=== PATIENT | male | born 1935 | race Caucasian/White ===

== ENCOUNTER 2016-07-18 07:19 | Inpatient (IN) | payer BC ==
[2016-07-18 07:33] VITALS: BMI 47.0
--- NOTE | 2016-07-18 07:47 | PDOC ---
History of Present Illness - General History Source: Patient Exam Limitations: No Limitations - History of Present Illness Initial Comments: CHIEF COMPLAINT: 80 y/o afebrile male with PMH HTN, HLD, CAD with multiple stents c/o abdominal pain with nausea this morning. HISTORY OF PRESENT ILLNESS: The patient states the pain woke him up from sleep. He has not been able to vomit. He describes the pain as sharp, intermittent and mostly located in the RUQ. His son informs me he had a heavy dinner last night but denies hx of gallstones. He denies fever, chills, URI symptoms, CP, SOB, back pain, diarrhea, constipation. He did have a normal BM yesterday. His son informs me that 2 weeks ago he was treated for bronchitis with an abx and then a steroid and his symptoms have improved. PCP is Dr. Rao [employer] [place] [employer] is Dr. Thomson (Last stress test and ECHO was 03/2016) Vital signs on arrival are notable for O2 sat of 80% on RA without a good wave form. REVIEW OF SYSTEMS: GENERAL/CONSTITUTIONAL: No fever/chills. No weakness. No weight change. HEAD, EYES, EARS, NOSE AND THROAT: No change in vision. No ear pain or discharge. No sore throat. CARDIOVASCULAR: No chest pain or shortness of breath. RESPIRATORY: No cough, wheezing, or hemoptysis. GASTROINTESTINAL: +abd pain, nausea. No vomiting, diarrhea, constipation. GENITOURINARY: No dysuria, frequency, or change in urination. MUSCULOSKELETAL: No joint or muscle swelling or pain. No neck or back pain. SKIN: No rash or easy bruising. NEUROLOGIC: No headache, vertigo, loss of consciousness, or loss of sensation. PHYSICAL EXAM: GENERAL: The patient is awake, alert, and fully oriented, in moderate distress. The patient is belching intermittently and appears to be short of breath although he denies. HEAD: Normal with no signs of trauma. ENT: Pupils equal, round and reactive to light, extraocular movements intact, sclera anicteric, conjunctiva clear. Neck supple. LUNGS: Clear to auscultation bilaterally. Normal excursion. No respiratory distress or use of accessory muscles. CV: rapid rate/regular rhythm, S1/S2, no MRG. Cap refill < 2 sec. ABDOMEN: obese, distended abdomen (reportedly normal for patient). TTP in epigastric and RUQ. No rebound, guarding. EXTREMITIES: Normal range of motion, no edema. NEUROLOGICAL: Normal speech, normal gait. CN II-XII grossly intact. PSYCH: Normal mood, normal affect. SKIN: Warm, dry, normal turgor, no rashes or lesions noted. <Yu Key - Last Filed: 07/18/16 12:20> <Doc Espinosa - Last Filed: 08/01/16 09:34> - General Chief Complaint: Pain Stated Complaint: ABD PAIN Time Seen by Provider: 07/18/16 07:39 Past History - Past Medical History Asthma: No Cardiac Disorders: Yes (cardiac stent) CVA: No CHF: Yes Dementia: No Diabetes: No Dialysis: No HTN: Yes Hypercholesterolemia: Yes - Surgical History Cardiac Surgery: Yes (card stent) - Psycho/Social/Smoking Cessation Hx Anxiety: No Suicidal Ideation: No Smoking Status: No Smoking History: Former smoker Have you smoked in the past 12 months: No Number of Cigarettes Smoked Daily: 0 Information on smoking cessation initiated: No Hx Alcohol Use: No Drug/Substance Use Hx: No <Yu Key - Last Filed: 07/18/16 12:20> <Doc Espinosa - Last Filed: 08/01/16 09:34> - Past Medical History Allergies/Adverse Reactions: Allergies Allergy/AdvReac Type Severity Reaction Status Date / Time No Known Allergies Allergy Verified 07/18/16 07:27 Home Medications: Ambulatory Orders Allopurinol [Zyloprim -] 100 mg PO DAILY 07/18/16 Multivit-Min/FA/Lycopen/Lutein [Centrum Silver Tablet] 1 each PO DAILY 07/18/16 Nitroglycerin [Nitrostat] 0.4 mg SL PRN 07/18/16 Simvastatin [Zocor -] 40 mg PO HS 07/18/16 Carvedilol [Coreg -] 3.125 mg PO BID #60 tablet 07/30/16 Losartan Potassium [Cozaar -] 25 mg PO DAILY #30 tablet 07/30/16 Pantoprazole Sodium [Protonix -] 40 mg PO DAILY #30 tablet.ec 07/30/16 *Physical Exam - Vital Signs Last Vital Signs Temp Pulse Resp BP Pulse Ox 97.5 F L 90 18 105/67 07/18/16 07:28 07/18/16 07:28 07/18/16 07:28 07/18/16 07:28 <Yu Key - Last Filed: 07/18/16 12:20> - Vital Signs Last Vital Signs Temp Pulse Resp BP Pulse Ox 97.5 F L 104 H 26 H 105/67 97 07/18/16 07:28 07/18/16 07:47 07/18/16 07:47 07/18/16 07:28 07/18/16 07:47 <Doc Espinosa - Last Filed: 08/01/16 09:34> Heart Score/ECG Review - ECG Impressions Comment:: 07/18/16 11:30 Twelve-lead EKG was performed and reviewed by me. There is normal sinus rhythm with a rate of 110 Right bundle-branch block T wave inversions in V1 through V4 Right bundle-branch block and T-wave inversions are new when compared with EKG dated 12/25/2011 <Doc Espinosa - Last Filed: 08/01/16 09:34> ED Treatment Course - LABORATORY CBC & Chemistry Diagram: 07/18/16 08:25 07/18/16 08:25 <Yu Key - Last Filed: 07/18/16 12:20> - LABORATORY CBC & Chemistry Diagram: 07/31/16 07:00 07/31/16 07:00 - ADDITIONAL ORDERS Additional order review: Laboratory Results 07/18/16 07/18/16 07/18/16 08:25 08:25 08:25 Sodium 134 L Potassium 5.0 Chloride 99 Carbon Dioxide 25 Anion Gap 10 BUN 73 H D Creatinine 2.7 H D Creat Clearance w eGFR 22.85 Random Glucose 207 H D Lactic Acid 1.824 Calcium 9.3 Total Bilirubin 0.6 D AST 21 D ALT 35 D Alkaline Phosphatase 55 Creatine Kinase 403 H D Creatine Kinase Index 2.0 CK-MB (CK-2) 8.001 H CK-MB (CK-2) Rel Index Cancelled Troponin I < 0.02 B-Natriuretic Peptide 201.01 Total Protein 7.2 Albumin 3.8 07/18/16 08:25 RBC 5.04 D MCV 95.5 MCHC 32.6 RDW 14.0 MPV 8.1 Neutrophils % 83.1 H D Lymphocytes % 13.0 D Monocytes % 2.0 L Eosinophils % 1.5 Basophils % 0.4 - Medications Given in the ED: ED Medications Discontinued Medications Generic Name Dose Route Start Last Admin Trade Name Ck PRN Reason Stop Dose Admin Famotidine/Sodium Chloride 50 mls @ 100 mls/hr 07/18/16 07:48 07/18/16 08:40 Pepcid 20 Mg Premixed Ivpb - IVPB 07/18/16 08:17 100 mls/hr ONCE ONE Administration Sodium Chloride 500 mls @ 500 mls/hr 07/18/16 08:39 07/18/16 08:40 Normal Saline - IV 07/18/16 09:38 500 mls/hr ASDIR STA Administration Sodium Chloride 500 mls @ 500 mls/hr 07/18/16 09:34 07/18/16 09:35 Normal Saline - IV 07/18/16 10:33 500 mls/hr ASDIR STA Administration Ketorolac Tromethamine 15 mg 07/18/16 08:39 07/18/16 08:40 Toradol Injection - IVPUSH 07/18/16 08:40 15 mg ONCE ONE Administration Ondansetron HCl 4 mg 07/18/16 07:48 07/18/16 08:40 Zofran Injection IVPUSH 07/18/16 07:49 4 mg ONCE ONE Administration <Doc Espinosa - Last Filed: 08/01/16 09:34> Medical Decision Making - Medical Decision Making A/P: 80 y/o male with multiple co-morbidities c/o abdominal pain and nausea that woke him up from sleep this morning. Concerned for FL, PNA, cholecystitis. Plan is as follows: 1. EKG 2. CXR 3. Labs 4. Gallbladder ultrasound 5. IV zofran, pepcid BP low. Ordered 500mg IV fluid bolus. Ordered 15mg IV toradol for pain - avoiding narcotics because of low BP. Mildly elevated WBC count with left shift. Elevated CK and CK-MB. Troponin normal. Kidney failure - unsure if chronic. BP remains low. Ordered 2nd 500mg IV fluid bolus. CXR IMPRESSION: Mild cardiomegaly. Mild atelectatic changes in left base with questionable minimal left pleural effusion. CT scan abd/pelvis IMPRESSION: Pneumoperitoneum suspicious for bowel perforation, possibly gastric in etiology. Ascites. Cholelithiasis. Ordered IV levaquin and flagyl Cultures, PT/INR, type and screen ordered BP improved but still low; ordered IV fentanyl for pain as Toradol did little to relieve pain. Gave the patient and his family the diagnosis and plan for surgery/admission. The patient admits to taking a lot of Advil - he states he goes through a [employer] size bottle every few months, but he denies previous history of ulcers. Paged Dr. Glover and Hospitalist for admission and surgery. Spoke with Dr. Shrestha and he accepts surgical candidate. Ordered 1L IV fluids wide open Pt has 2 lines Ordered Denise catheter. <Yu Key - Last Filed: 07/18/16 12:20> - Medical Decision Making 07/18/16 11:08 80y M hx of CAD presents with sudden onset of RUQ pain this morning, associated w/ nausea w/o any fever/chills, cp, sob. on exam pt iwth large abdomen that was initially tender in the RUQ, but gracually worsened. Pts BP is borderline, and was initially tachycardic but improved with 1L of NS. Pts CT shows free air, pt does endorse using advil very frequently for arthritic pain ?perforated peptic ulcer? pt was given abx, placed NPO. surgery was paged. will admit to hospitalist. The patient was seen and evaluated in conjunction with GUTIERREZ Key under my direct supervision, ancillary studies were reviewed. I independently interviewed and evaluated the patient and I agree with the plan as outlined by GUTIERREZ Key . <Doc Espinosa - Last Filed: 08/01/16 09:34> *DC/Admit/Observation/Transfer - Discharge Dispostion Admit: Yes <Yu Key - Last Filed: 07/18/16 12:20> <Doc Espinosa - Last Filed: 08/01/16 09:34> Diagnosis at time of Disposition: Pneumoperitoneum, Bowel perforation - Discharge Dispostion Condition at time of disposition: Improved - Prescriptions - Referrals
[2016-07-18] MEDS ORDERED: FAMOTIDINE 20 MG/50 ML IVPB 50 ML IVPB ONE ×2 (07:48→08:42)
[2016-07-18] MEDS ORDERED: ONDANSETRON 4 MG/2 ML VIAL IVPUSH ONE (07:48)
[2016-07-18 08:37] LABS: BASOPHIL 0.4 % (0-2.0); EOSINOPHIL 1.5 % (0-4.5); MCH 31.1 pg (25.7-33.7); MCHC 32.6 g/dl (32.0-35.9); MEAN CELL VOLUME 95.5 fl (80-96); MEAN PLT VOLUME 8.1 fl (7.5-11.1); NEUTROPHILS 83.1 % (42.8-82.8); PLATELET COUNT 304 K/MM3 (134-434); WHITE BLOOD COUNT 10.1 K/mm3 (4.0-10.0)
[2016-07-18] MEDS ORDERED: KETOROLAC TROMETHAMINE 15 MG/ML VIAL IVPUSH ONE (08:39)
[2016-07-18] MEDS ORDERED: SODIUM CHLORIDE 500 ML IV STA ×2 (08:39→09:34)
[2016-07-18] MEDS ORDERED: ONDANSETRON 4 MG/2 ML VIAL ONE (08:42)
[2016-07-18] MEDS ORDERED: KETOROLAC TROMETHAMINE 15 MG/ML VIAL ONE (08:42)
[2016-07-18 08:57] LABS: ALBUMIN 3.8 g/dl (3.4-5.0); ANION GAP 10 (8-16); BILIRUBIN,TOTAL 0.6 mg/dL (0.2-1.0); CALCIUM 9.3 mg/dL (8.5-10.1); CO2 25 mmol/L (21-32); CREATININE 2.7 mg/dL (0.7-1.3); GLUCOSE,RANDOM 207 mg/dL (74-106); SGOT/AST 21 U/L (15-37); SGPT/ALT 35 U/L (12-78); TOT PROT 7.2 g/dl (6.4-8.2)
[2016-07-18 09:00] LABS: ALK PHOS 55 U/L (45-117); TROPONIN I < 0.02 ng/ml (0.00-0.05)
--- NOTE | 2016-07-18 10:29 | EKG ---
Test Reason : Blood Pressure : / mmHG Vent. Rate : 110 BPM Atrial Rate : 110 BPM P-R Int : 170 ms QRS Dur : 142 ms QT Int : 380 ms P-R-T Axes : 048 087 -01 degrees QTc Int : 514 ms SINUS TACHYCARDIA WITH OCCASIONAL PREMATURE VENTRICULAR COMPLEXES RIGHT BUNDLE BRANCH BLOCK POSSIBLE INFERIOR INFARCT , AGE UNDETERMINED T WAVE ABNORMALITY, CONSIDER LATERAL ISCHEMIA ABNORMAL ECG WHEN COMPARED WITH ECG OF 25-DEC-2011 11:39, SIGNIFICANT CHANGES HAVE OCCURRED Confirmed by TWAN HYDE MD ([id number]) on 07/18/2016 10:29:14 AM Referred By: Confirmed By:TWAN HYDE MD
[2016-07-18] MEDS ORDERED: LEVOFLOXACIN 750 MG IVPB 150 ML IVPB ONE ×2 (10:43→10:50)
[2016-07-18] MEDS ORDERED: METRONIDAZOLE 500 MG PREMIXED 100 ML IVPB ONE ×2 (10:43→10:50)
[2016-07-18 11:25] LABS: INR 1.06 (0.82-1.09); PROTHROMBIN TIME (PATIENT) 11.7 SEC (9.98-11.88)
[2016-07-18] MEDS ORDERED: SUCCINYLCHOLINE CHLORIDE 200 MG/10 ML VIAL ONE (12:49)
[2016-07-18] MEDS ORDERED: PROPOFOL 20 ML ONE (12:50)
[2016-07-18] MEDS ORDERED: ROCURONIUM BROMIDE 50 MG/5 ML VIAL ONE (12:52)
--- NOTE | 2016-07-18 13:06 | CONSULT ---
Consult Consult Specialty:: Surgery Reason for Consultation:: pneumoperitoneum - History of Present Illness Chief Complaint: Abdominal pain History of Present Illness: The patient states the pain woke him up from sleep. He has not been able to vomit. He describes the pain as sharp, intermittent and mostly located in the RUQ. His son informs me he had a heavy dinner last night but denies hx of gallstones. He denies fever, chills, URI symptoms, CP, SOB, back pain, diarrhea , constipation. He did have a normal BM yesterday. His son informs me that 2 weeks ago he was treated for bronchitis with an abx and then a steroid and his symptoms have improved. - History Source History Provided By: Patient, Family Member Limitations to Obtaining History: No Limitations - Past Medical History Cardio/Vascular: Yes: CAD Musculoskeletal: Yes: Osteoarthritis Additional Medical History: Morbid obesity - Past Surgical History Additional Surgical History: PCI - Alcohol/Substance Use Hx Alcohol Use: No - Smoking History Smoking history: Former smoker Have you smoked in the past 12 months: No Aproximately how many cigarettes per day: 0 Home Medications - Allergies Allergies/Adverse Reactions: Allergies Allergy/AdvReac Type Severity Reaction Status Date / Time No Known Allergies Allergy Verified 07/18/16 07:27 - Home Medications Home Medications: Ambulatory Orders Allopurinol [Zyloprim -] 100 mg PO DAILY 07/18/16 Aspirin [Drew Chewable] 81 mg PO DAILY 07/18/16 Carvedilol 25 mg PO DAILY 07/18/16 Losartan Potassium [Cozaar -] 50 mg PO DAILY 07/18/16 Multivit-Min/FA/Lycopen/Lutein [Centrum Silver Tablet] 1 each PO DAILY 07/18/16 Nitroglycerin [Nitrostat] 0.4 mg SL PRN 07/18/16 Simvastatin [Zocor -] 40 mg PO HS 07/18/16 Spironolactone [Aldactone] 50 mg PO DAILY 07/18/16 Torsemide [Demadex] 20 mg PO DAILY 07/18/16 Review of Systems - Review of Systems Gastrointestinal: reports: Abdominal Pain, Bloating Pain Intensity: 9 Physical Exam Vital Signs: Vital Signs Temperature 97.5 F L 07/18/16 07:28 Pulse Rate 90 07/18/16 12:25 Respiratory Rate 28 H 07/18/16 12:25 Blood Pressure 95/75 07/18/16 12:25 O2 Sat by Pulse Oximetry (%) 97 07/18/16 12:25 Constitutional: Yes: Anxious, Mild Distress Eyes: Yes: Conjunctiva Clear HENT: Yes: Normocephalic Neck: Yes: Supple Cardiovascular: Yes: Regular Rate and Rhythm Respiratory: Yes: CTA Bilaterally Gastrointestinal: Yes: Abdomen, Obese, Tenderness (diffuse) ...Rectal Exam: Yes: Deferred Neurological: Yes: Alert, Oriented Labs: Laboratory Last Values WBC 10.1 K/mm3 (4.0-10.0) H 07/18/16 08:25 RBC 5.04 M/mm3 (4.00-5.60) D 07/18/16 08:25 Hgb 15.7 GM/dL (11.7-16.9) D 07/18/16 08:25 Hct 48.2 % (35.4-49) D 07/18/16 08:25 MCV 95.5 fl (80-96) 07/18/16 08:25 MCHC 32.6 g/dl (32.0-35.9) 07/18/16 08:25 RDW 14.0 % (11.9-15.9) 07/18/16 08:25 Plt Count 304 K/MM3 (134-434) D 07/18/16 08:25 MPV 8.1 fl (7.5-11.1) 07/18/16 08:25 Neutrophils % 83.1 % (42.8-82.8) H D 07/18/16 08:25 Lymphocytes % 13.0 % (8-40) D 07/18/16 08:25 Monocytes % 2.0 % (3.8-10.2) L 07/18/16 08:25 Eosinophils % 1.5 % (0-4.5) 07/18/16 08:25 Basophils % 0.4 % (0-2.0) 07/18/16 08:25 INR 1.06 (0.82-1.09) 07/18/16 11:00 Sodium 134 mmol/L (136-145) L 07/18/16 08:25 Potassium 5.0 mmol/L (3.5-5.1) 07/18/16 08:25 Chloride 99 mmol/L (98-107) 07/18/16 08:25 Carbon Dioxide 25 mmol/L (21-32) 07/18/16 08:25 Anion Gap 10 (8-16) 07/18/16 08:25 BUN 73 mg/dL (7-18) H D 07/18/16 08:25 Creatinine 2.7 mg/dL (0.7-1.3) H D 07/18/16 08:25 Creat Clearance w eGFR 22.85 (>60) 07/18/16 08:25 Random Glucose 207 mg/dL (74-106) H D 07/18/16 08:25 Lactic Acid 1.824 mmol/L (0.4-2.0) 07/18/16 08:25 Calcium 9.3 mg/dL (8.5-10.1) 07/18/16 08:25 Total Bilirubin 0.6 mg/dL (0.2-1.0) D 07/18/16 08:25 AST 21 U/L (15-37) D 07/18/16 08:25 ALT 35 U/L (12-78) D 07/18/16 08:25 Alkaline Phosphatase 55 U/L (45-117) 07/18/16 08:25 Creatine Kinase 403 IU/L (39-308) H D 07/18/16 08:25 Creatine Kinase Index 2.0 % (0.0-5.0) 07/18/16 08:25 CK-MB (CK-2) 8.001 ng/ml (0.5-3.6) H 07/18/16 08:25 CK-MB (CK-2) Rel Index Cancelled 07/18/16 08:25 Troponin I < 0.02 ng/ml (0.00-0.05) 07/18/16 08:25 B-Natriuretic Peptide 201.01 pg/ml (5-450) 07/18/16 08:25 Total Protein 7.2 g/dl (6.4-8.2) 07/18/16 08:25 Albumin 3.8 g/dl (3.4-5.0) 07/18/16 08:25 Blood Type A POSITIVE 07/18/16 11:00 Antibody Screen Negative 07/18/16 11:00 Imaging - Results Cat Scan: Report Reviewed, Image Reviewed (pneumoperitoneum, free fluid) Problem List - Problems (1) Perforated peptic ulcer Code(s): K27.5 - CHRONIC OR UNSP PEPTIC ULCER, SITE UNSP, WITH PERFORATION Assessment/Plan Perforated hollow viscus, possible perforated PUD npo, IVF resuscitation, wu For emergency laparotomy Risks, benefits, and alternatives to the procedure discussed with patient and family members
--- NOTE | 2016-07-18 13:07 | HP ---
CHIEF COMPLAINT: Nausea PCP: Dr. Rao HISTORY OF PRESENT ILLNESS: 80 yo obese male with a PMHx HTN, HLD, CAD and multiple stent placement, complaining of nausea and abdominal pain that woke him up from sleep this morning. Patient brought in by his to sons. Pain is described as sharp, intermittent, RUQ pain. Patient denies vomiting, fever, chills, diarrhea, changes in bowel or bladder habits. Sons states that he takes Advil throughout the day (total amount unknown) for bilateral knee pain. Patient was recently treated for acute bronchitis on, finished course of antibiotics and steroids. On arrival patient was hypotensive and hypoxic at O2 of 80% on room air. ER course was notable for: (1)EKG: NSR R 110 with RBBB and T wave inversions in v1-v4 ; this is new when compared to 12/2011 (2)Limited US: +gallstone, no acute cholecystitis; + hepatomegaly consistent with fatty infiltration (3)CT abdomen: Lung bases demonstrate trace amount of pleural fluid, mild basilar atelectasis, free air identified in abdomen Recent Travel:no PAST MEDICAL HISTORY: PAST SURGICAL HISTORY: Social History: Smoking:no Alcohol:no Drugs: no Family History:n/a Allergies No Known Allergies Allergy (Verified 07/18/16 07:27) HOME MEDICATIONS: Home Medications Medication Instructions Recorded Allopurinol [Zyloprim -] 100 mg PO DAILY 07/18/16 Aspirin [Drew Chewable] 81 mg PO DAILY 07/18/16 Carvedilol 25 mg PO DAILY 07/18/16 Losartan Potassium [Cozaar -] 50 mg PO DAILY 07/18/16 Multivit-Min/FA/Lycopen/Lutein 1 each PO DAILY 07/18/16 [Centrum Silver Tablet] Nitroglycerin [Nitrostat] 0.4 mg SL PRN 07/18/16 Simvastatin [Zocor -] 40 mg PO HS 07/18/16 Spironolactone [Aldactone] 50 mg PO DAILY 07/18/16 Torsemide [Demadex] 20 mg PO DAILY 07/18/16 REVIEW OF SYSTEMS CONSTITUTIONAL: Absent: fever, chills, diaphoresis, generalized weakness, malaise, loss of appetite, weight change HEENT: Absent: rhinorrhea, nasal congestion, throat pain, throat swelling, difficulty swallowing, mouth swelling, ear pain, eye pain, visual changes CARDIOVASCULAR: Absent: chest pain, syncope, palpitations, irregular heart rate, lightheadedness , peripheral edema RESPIRATORY: Absent: cough, shortness of breath, dyspnea with exertion, orthopnea, wheezing, stridor, hemoptysis GASTROINTESTINAL: Positive: abdominal pain, abdominal distension, nausea Absent: vomiting, diarrhea, constipation, melena, hematochezia GENITOURINARY: Absent: dysuria, frequency, urgency, hesitancy, hematuria, flank pain, genital pain MUSCULOSKELETAL: Absent: myalgia, arthralgia, joint swelling, back pain, neck pain SKIN: Absent: rash, itching, pallor HEMATOLOGIC/IMMUNOLOGIC: Absent: easy bleeding, easy bruising, lymphadenopathy, frequent infections ENDOCRINE: Absent: unexplained weight gain, unexplained weight loss, heat intolerance, cold intolerance NEUROLOGIC: Absent: headache, focal weakness or paresthesias, dizziness, unsteady gait, seizure, mental status changes, bladder or bowel incontinence PSYCHIATRIC: Absent: anxiety, depression, suicidal or homicidal ideation, hallucinations. PHYSICAL EXAMINATION GENERAL: mordibly obese ,Awake, alert, and fully oriented, in no acute distress. HEAD: Normal with no signs of trauma. EYES: Pupils equal, round and reactive to light, extraocular movements intact, sclera anicteric, conjunctiva clear. No lid lag. EARS, NOSE, THROAT: Ears normal, nares patent, oropharynx clear without exudates. Moist mucous membranes. NECK: Normal range of motion, supple without lymphadenopathy, JVD, or masses. LUNGS: Breath sounds equal, clear to auscultation bilaterally. No wheezes, and no crackles. No accessory muscle use. HEART: tachycardic regular rhythm, normal S1 and S2 without murmur, rub or gallop. ABDOMEN: tender, distended, normoactive bowel sounds, no guarding, no rebound, no masses. No hepatomegaly or splenomegaly. MUSCULOSKELETAL: Normal range of motion at all joints. No bony deformities or tenderness. No CVA tenderness. UPPER EXTREMITIES: 2+ pulses, warm, well-perfused. No cyanosis. No clubbing. Cap refill <2 seconds. No peripheral edema. LOWER EXTREMITIES: 2+ pulses, warm, well-perfused. No calf tenderness. No peripheral edema. NEUROLOGICAL: Cranial nerves II-XII intact. Normal speech. Normal gait. PSYCHIATRIC: Cooperative. Good eye contact. Appropriate mood and affect. SKIN: Warm, dry, normal turgor, no rashes or lesions noted. ASSESSMENT/PLAN: 80 yo male with a PMH HTN , HLD, CAD s/p stents (unknown), presents to ER with nausea and abdominal pain. Work up on CT reveals free air in abdomen. Patient has been immediately sent to the OR for exploratory laparotomy with Dr. Shrestha. 1. Pneumoperitoneum secondary to perforated PUD -Taken to OR for exploratory laparotomy -Currently in ICU; intubated and sedated; -AC vent mode -protonix 40mg IVPB qd -morphine 2mg IVP q4hr prn for pain control - 2. Sepsis secondary to perforated PUD -blood culture and body fluid culture pending -ID consulted for antibiotics; he received one dose on unasyn in OR 3. HTN: -carvedilol 25mg po daily -losartan potassium 50mg po daily -spironolactone 50mg po daily -torsemide 20mg po daily -hold all home medications for now 4. HLD: -simvastatin 40mg po hs: hold 5. Gout: -allopurinol 100mg po daily -hold due to kidney functioning 6. Acute on chromic kidey injury: -Cr 2.7 today -Gentle hydration -atrophic left kidney seen on imaging FEN: Fluids: NS 100mls/hr Electrolytes: trend cmp Diet: NPO VTE prophylaxis: scds b/l Problem List - Problem (1) Bowel perforation Code(s): K63.1 - PERFORATION OF INTESTINE (NONTRAUMATIC) (2) Pneumoperitoneum Code(s): K66.8 - OTHER SPECIFIED DISORDERS OF PERITONEUM (3) Sepsis associated hypotension Code(s): A41.9 - SEPSIS, UNSPECIFIED ORGANISM Visit type - Emergency Visit Emergency Visit: Yes ED Registration Date: 07/18/16 Care time: The patient presented to the Emergency Department on the above date and was hospitalized for further evaluation of their emergent condition. - New Patient This patient is new to me today: Yes Date on this admission: 07/18/16 - Critical Care Critical Care patient: Yes Total Critical Care Time (in minutes): 40 Critical Care Statement: The care of this patient involved high complexity decision making to prevent further life threatening deterioration of the patient 's condition and/or to evalute & treat vital organ system(s) failure or risk of failure.
[2016-07-18] MEDS ORDERED: AMPICILLIN NA/SULBACTAM NA 1.5 GM VIAL IVPB ONE (13:33)
[2016-07-18] MEDS ORDERED: morphine CARPU-JECT 2 MG/1 ML DISP.SYRIN IVPUSH PRN ×2 (13:43→16:08)
[2016-07-18] MEDS ORDERED: SODIUM CHLORIDE 1,000 ML IV SCH (13:45)
[2016-07-18] MEDS ORDERED: PANTOPRAZOLE SODIUM 100 ML IVPB SCH (14:00)
[2016-07-18] MEDS ORDERED: MIDAZOLAM HCL 2 MG/2 ML SINGLE DOSE VIAL ONE (14:03)
--- NOTE | 2016-07-18 15:07 | OP ---
Operative Note - Note: Operative Date: 07/18/16 Pre-Operative Diagnosis: Perforated hollow viscus Operation: Exploratory laparotomy, Orion patch repair of perforated PUD Findings: perforated pre-pyloric ulcer with 1 liter of free fluid Post-Operative Diagnosis: Other (Perforated PUD with peritonitis) Surgeon: Lior Shrestha Assistant Professor Of Communication: Nahomy Ontiveros Anesthesia: General Specimens Removed: none Estimated Blood Loss (mls): 20 Operative Report Dictated: Yes
--- NOTE | 2016-07-18 15:11 | SURG ---
Surgery Agri Business Agent Note Agri Business Agent: Nahomy Ontiveros PA-C Date of Service: 07/18/16 Diagnosis: Perforated hollow viscus Procedure: Exploratory laparotomy, Orion patch repair of perforated PUD I was present for the entirety of the operative procedure. For further detail, please refer to operative report. Visit type - Case Type Case Type: ED Admission - New patient This patient is new to me today: Yes Date on this admission: 07/18/16
[2016-07-18] MEDS ORDERED: PROPOFOL 1000 MG/100 ML VIAL IVPB ONE (15:15)
--- NOTE | 2016-07-18 15:50 | CONSULT ---
Consult Consult Specialty:: PULM/CCM Referred by:: [facility] Reason for Consultation:: Post operative management - History of Present Illness Chief Complaint: abdominal pain History of Present Illness: 80 M, HTN, HLD, CAD, and multiple stent placement. Admitted via the ER due to nausea and RUQ abdominal pain. Apparently he takes a lot of Advil/NSAIDS. On imaging found to have a pneumoperitoneum. Take to the OR and found to have a perforated hollow viscus. Now S/P Exploratory laparotomy, Orion patch and repair of perforated PUD He remains intubated and sedated. - History Source History Provided By: Medical Record Limitations to Obtaining History: Intubated - Alcohol/Substance Use Hx Alcohol Use: No - Smoking History Smoking history: Former smoker Have you smoked in the past 12 months: No Aproximately how many cigarettes per day: 0 Home Medications - Allergies Allergies/Adverse Reactions: Allergies Allergy/AdvReac Type Severity Reaction Status Date / Time No Known Allergies Allergy Verified 07/18/16 07:27 - Home Medications Home Medications: Ambulatory Orders Allopurinol [Zyloprim -] 100 mg PO DAILY 07/18/16 Aspirin [Drew Chewable] 81 mg PO DAILY 07/18/16 Carvedilol 25 mg PO DAILY 07/18/16 Losartan Potassium [Cozaar -] 50 mg PO DAILY 07/18/16 Multivit-Min/FA/Lycopen/Lutein [Centrum Silver Tablet] 1 each PO DAILY 07/18/16 Nitroglycerin [Nitrostat] 0.4 mg SL PRN 07/18/16 Simvastatin [Zocor -] 40 mg PO HS 07/18/16 Spironolactone [Aldactone] 50 mg PO DAILY 07/18/16 Torsemide [Demadex] 20 mg PO DAILY 07/18/16 Review of Systems Unable to obtain ROS, reason: intubated Physical Exam Vital Signs: Vital Signs Temperature 97.5 F L 07/18/16 07:28 Pulse Rate 90 07/18/16 12:25 Respiratory Rate 28 H 07/18/16 12:25 Blood Pressure 95/75 07/18/16 12:25 O2 Sat by Pulse Oximetry (%) 97 07/18/16 12:25 Constitutional: Yes: Obese, Other (intubated) Eyes: Yes: Conjunctiva Clear, EOM Intact HENT: Yes: Atraumatic, Normocephalic Neck: Yes: Supple, Trachea Midline Cardiovascular: Yes: Tachycardia Respiratory: Yes: Mechanically Ventilated, Rhonchi Gastrointestinal: Yes: Abdomen, Obese, Other (post operative) ...Rectal Exam: Yes: Deferred Renal/: Yes: Denise Present Musculoskeletal: Yes: WNL Extremities: Yes: WNL Edema: No Peripheral Pulses WNL: Yes Integumentary: Yes: Incision Wound/Incision: Yes: Well Approximated Neurological: Yes: Other (sedated) Imaging - Results Cat Scan: Report Reviewed, Image Reviewed Problem List - Problems (1) Bowel perforation Code(s): K63.1 - PERFORATION OF INTESTINE (NONTRAUMATIC) (2) Pneumoperitoneum Code(s): K66.8 - OTHER SPECIFIED DISORDERS OF PERITONEUM Assessment/Plan CVP to be inserted IVF ABX Per ID Strict I & O VTE prophylaxis AC mode of vent Check ABG Dr Daniels CCTime 35"
[2016-07-18] MEDS ORDERED: NOREPINEPHRINE BITARTRATE 4 MG/4 ML ML IV ONE ×2 (16:19→20:23)
--- NOTE | 2016-07-18 16:35 | PROC ---
Central Line Insertion Indication: Poor Venous Access, Sepsis, Vasopressor Risks and Benefits Explained: No (emergent) Consent on Chart: No Central Line: Triple Lumen Catheter Anesthesia: 1% Lidocaine Sterile Technique: Yes Ultrasound Guided Assistance: Yes Position: Right Internal Jugular Post Insertion: Yes: Bilateral Breath Sounds, Bilateral Chest Expansion Sterile Dressing Applied: Yes
[2016-07-18 17:13] LABS: ARTERIAL BLD GAS O2 SATURATION 98.9 % (90-98.9); ARTERIAL BLOOD GAS BASE EXCESS -9.9 meq/l (-2-2); ARTERIAL BLOOD GAS HCO3 18.2 meq/L (22-26)
[2016-07-18 17:14] LABS: ALLENS TEST POSITIVE; ART PUNCT SITE RIGHT RADIAL; LPM/O2% 100; MECH. VENT. YES; PT. ON O2? YES; TYPE OF O2 VENT; VENT RATE 12; VT/PRESS 450
[2016-07-18 17:15] LABS: ARTERIAL BLOOD GAS pH 7.18 (7.35-7.45)
[2016-07-18] MEDS ORDERED: NOREPINEPHRINE BITARTRATE 4,000 MCG in DEXTROSE 5%-WATER - 496 ML IV SCH (17:30)
[2016-07-18 17:49] LABS: MCH 31.3 pg (25.7-33.7); MCHC 32.7 g/dl (32.0-35.9); MEAN CELL VOLUME 95.7 fl (80-96); MEAN PLT VOLUME 8.7 fl (7.5-11.1); PLATELET COUNT 228 K/MM3 (134-434); RDW 13.7 % (11.9-15.9); WHITE BLOOD COUNT 9.9 K/mm3 (4.0-10.0)
[2016-07-18] MEDS ORDERED: SODIUM CHLORIDE 1,000 ML IV STA (17:54)
[2016-07-18] MEDS ORDERED: PROPOFOL 100 ML ONE (18:02)
[2016-07-18 18:17] LABS: CALCIUM 7.1 mg/dL (8.5-10.1); CREATININE 2.8 mg/dL (0.7-1.3)
[2016-07-18 18:19] LABS: TROPONIN I 0.03 ng/ml (0.00-0.05)
[2016-07-18] MEDS: SODIUM CHLORIDE 1,000 ML IV SCH (18:28)
--- NOTE | 2016-07-18 18:38 | PN ---
Teaching Attending Note Name of Resident: Gita Maldonado ATTENDING PHYSICIAN STATEMENT I saw and evaluated the patient. I reviewed the resident's note and discussed the case with the resident. I agree with the resident's findings and plan as documented. SUBJECTIVE: This is an 80-year-old man with a history of CAD, stents, HTN, hyperlipidemia, stage 3 CKD, gout who presents to the ER with abdominal pain. He says he was awakened from sleep by sharp pain across his upper abdomen. He had nausea but no vomiting. He had a normal BM yesterday. He denies fever, chills, melena, rectal bleeding. He takes Advil frequently for knee pain. He was treated with steroids and an antibiotic for acute bronchitis 2 weeks ago. OBJECTIVE: Vital Signs Period Temp Pulse Resp BP Sys/Navarrete Pulse Ox Last 24 Hr 97.5 F-99.1 F 52-104 10-28 64-138/40-77 85-100 HEART: S1 S2, RRR LUNGS: Clear ABDOMEN: Obese, soft, distended, diffusely tender, hypoactive BS EXTREMITIES: No edema ASSESSMENT AND PLAN: This is an 80-year-old man with a history of CAD, stents, HTN, hyperlipidemia, who is taking Advil and recently took oral steroids, who came to the ER because of abdominal pain. He was found to have pneumoperitoneum on CT. 1. Perforated bowel, likely perforated gastric ulcer - Admit to ICU - NPO - IV fluid - IV Protonix - Surgery consult 2. Acute kidney injury on stage 3 CKD vs progression of chronic kidney disease - Last creatinine 1.8 (2011) - IV fluid - Monitor creatinine 3. CAD 4. Hypertension 5. Hyperlipidemia 6. History of gout
[2016-07-18 19:30] LABS: ARTERIAL BLD GAS O2 SATURATION 99.2 % (90-98.9); ARTERIAL BLOOD GAS BASE EXCESS -9.3 meq/l (-2-2); ARTERIAL BLOOD GAS HCO3 17.9 meq/L (22-26)
[2016-07-18 19:34] LABS: ALLENS TEST POSITIVE; ART PUNCT SITE LEFT RADIAL; ARTERIAL BLOOD GAS pH 7.22 (7.35-7.45); LPM/O2% 100; MECH. VENT. YES; PT. ON O2? YES; TYPE OF O2 VENT; VENT RATE 12; VT/PRESS 450
[2016-07-18] MEDS: MUPIROCIN 2% TOPICAL OINTMENT FOR DECOLONIZATION NS SCH (21:30)
[2016-07-18] MEDS: CHLORHEXIDINE GLUCONATE 4% CLEANSER FOR DECOLONIZATION TP SCH (21:30)
[2016-07-18] MEDS: PROPOFOL 100 ML IVPB SCH (21:31)
[2016-07-18] MEDS ORDERED: CHLORHEXIDINE GLUCONATE 4% CLEANSER FOR DECOLONIZATION TP SCH (22:00)
[2016-07-18] MEDS ORDERED: MUPIROCIN 2% TOPICAL OINTMENT FOR DECOLONIZATION NS SCH (22:00)
[2016-07-18] MEDS: NOREPINEPHRINE BITARTRATE 8,000 MCG in DEXTROSE 5%-WATER - 492 ML IV SCH (22:53)
[2016-07-19] MEDS ORDERED: NOREPINEPHRINE BITARTRATE 4 MG/4 ML ML IV ONE ×3 (00:58→20:02)
[2016-07-19] MEDS: SODIUM CHLORIDE 1,000 ML IV SCH ×2 (06:34→17:01)
[2016-07-19 06:35] LABS: BASOPHIL 0.6 % (0-2.0); EOSINOPHIL 0.6 % (0-4.5); MCHC 32.5 g/dl (32.0-35.9); MEAN CELL VOLUME 95.6 fl (80-96); MEAN PLT VOLUME 8.7 fl (7.5-11.1); NEUTROPHILS 88.4 % (42.8-82.8); PLATELET COUNT 251 K/MM3 (134-434); RDW 14.2 % (11.9-15.9); WHITE BLOOD COUNT 17.3 K/mm3 (4.0-10.0)
--- NOTE | 2016-07-19 07:00 | OP ---
DATE OF OPERATION: 07/18/2016 PROCEDURE: Exploratory laparotomy, Orion patch repair, and peritoneal washout. PREOPERATIVE DIAGNOSIS: Perforated hallow viscus. POSTOPERATIVE DIAGNOSIS: Perforated prepyloric ulcer, peptic ulcer with peritonitis. SURGEON: Lior Shrestha MD QUARTER INSPECTOR: GUTIERREZ Ontiveros ANESTHESIA: General endotracheal. DESCRIPTION OF PROCEDURE: This is an 80-year-old male with a history of CAD, morbid obesity in addition chronic NSAIDs use for arthritis who presented with sudden onset of abdominal pain that started in the epigastric region and later becoming diffuse. The patient came in with diffuse tenderness, abdominal distention, and a perioperative CT scan revealed pneumoperitoneum and perihepatic free fluid. The patient also was hypotensive on admission. After fluid resuscitation, the patient was immediately brought to the operating room after obtaining consent and discussion of risks, benefits, and alternatives. The patient was placed in the supine position and general endotracheal was administered. The abdomen was prepped and draped in the usual sterile fashion. Using scalpel with blade No. 10, a 20-cm upper midline incision was made. Dissection carried down to subcutaneous tissue. Further dissection using Bovie cautery was done until the fascia was encountered. This was incised superficially with a Bovie cautery until parietal peritoneum was encountered. The fascia was incised all throughout the length of the incision then the peritoneal cavity was entered. The pneumoperitoneum was evacuated, and about a liter of succus entericus was also evacuated. A fluid sample was sent for culture and sensitivity studies. A 1-cm prepyloric anterior ulcer was visualized leaking succus entericus. A 6-cm x 4- cm piece of omentum was then used to patch the perforation using 3-0 silk interrupted sutures. After the patch was deemed satisfactory, the peritoneal cavity was copiously irrigated with sterile normal saline until the return was clear. A BOOKER #10 drain was deployed traversing the Cantor's pouch with the tip just lateral to the repair. The wound was then closed with continuous PDS loop No. 1 sutures reinforced with 4 interrupted nylon No. 2 retention sutures. The skin was left open and covered and lightly packed with iodoform 1-inch strips. The wound was then covered with sterile dressing. The patient was kept intubated and transferred to the intensive care unit in satisfactory condition. Estimated blood loss was about 20 mL. Wound class dirty. The patient received 2.75 g of Unasyn prior to the start of the procedure. Giovanny [id number] MTDCody
[2016-07-19] MEDS: PROPOFOL 100 ML IVPB SCH ×5 (08:00→20:10)
--- NOTE | 2016-07-19 08:29 | PN ---
Progress Note (short form) - Note Progress Note: intubated Current Medications Generic Name Dose Route Start Last Admin Trade Name Freq PRN Reason Stop Dose Admin Chlorhexidine Gluconate 1 applic 07/18/16 22:00 07/18/16 21:30 Hibiclens For Decolonization - TP 1 applic HS ROWDY Administration Fentanyl 50 mcg 07/18/16 20:11 07/19/16 06:34 Sublimaze Injection - IVPUSH 07/19/16 20:14 50 mcg Q1H PRN Administration PAIN LEVEL 6-10 Pantoprazole Sodium 100 mls @ 200 mls/hr 07/19/16 10:00 Protonix 40mg Ivpb (Pre-Docked) IVPB DAILY ROWDY Sodium Chloride 1,000 mls @ 100 mls/hr 07/18/16 16:08 07/19/16 06:34 Normal Saline - IV 100 mls/hr ASDIR ROWDY Administration Propofol 100 mls @ 4.082 mls/hr 07/18/16 18:45 07/19/16 06:00 Diprivan - IVPB 45 mcg/kg/min TITR ROWDY Titration Protocol 5 MCG/KG/MIN Norepinephrine Bitartrate 8, 500 mls @ 15.3 mls/hr 07/18/16 21:45 07/18/16 22: 53 000 mcg/ Dextrose IV 75 mls/hr ASDIR ROWDY Administration Protocol 0.03 MCG/KG/MIN Mupirocin 1 applic 07/18/16 22:00 07/18/16 21:30 Bactroban Ointment (For Decolonization) - NS 07/23/16 21:59 1 applic BID ROWDY Administration Last Vital Signs Temp Pulse Resp BP Pulse Ox 100.2 F H 70 22 111/56 100 07/19/16 06:00 07/19/16 06:00 07/19/16 06:37 07/19/16 06:00 07/18/16 20:09 Intake & Output 07/16/16 07/17/16 07/18/16 07/19/16 23:59 23:59 23:59 23:59 Intake Total 5912 2124 Output Total 2345 950 Balance 3567 1174 Weight 300 lb 310 lb 3.046 oz General intubated CV S1 S2 RRR no murmur/rub/gallop Lungs CTA B/L anteriorly Abdomen soft mildly tender, surgical dressing c/d/i, BOOKER drain with serousangeous fluid. no BS Extremities no edema CBCD WBC 17.3 K/mm3 (4.0-10.0) H D 07/19/16 05:20 RBC 4.15 M/mm3 (4.00-5.60) 07/19/16 05:20 Hgb 12.9 GM/dL (11.7-16.9) 07/19/16 05:20 Hct 39.7 % (35.4-49) 07/19/16 05:20 MCV 95.6 fl (80-96) 07/19/16 05:20 MCHC 32.5 g/dl (32.0-35.9) 07/19/16 05:20 RDW 14.2 % (11.9-15.9) 07/19/16 05:20 Plt Count 251 K/MM3 (134-434) 07/19/16 05:20 MPV 8.7 fl (7.5-11.1) 07/19/16 05:20 CMP Sodium 138 mmol/L (136-145) 07/18/16 17:15 Potassium 5.7 mmol/L (3.5-5.1) H 07/18/16 17:15 Chloride 108 mmol/L (98-107) H 07/18/16 17:15 Carbon Dioxide 21 mmol/L (21-32) 07/18/16 17:15 Anion Gap 9 (8-16) 07/18/16 17:15 BUN 73 mg/dL (7-18) H 07/18/16 17:15 Creatinine 2.8 mg/dL (0.7-1.3) H 07/18/16 17:15 Creat Clearance w eGFR 22.85 (>60) 07/18/16 08:25 Random Glucose 128 mg/dL (74-106) H D 07/18/16 17:15 Calcium 7.1 mg/dL (8.5-10.1) L D 07/18/16 17:15 Total Bilirubin 0.6 mg/dL (0.2-1.0) D 07/18/16 08:25 AST 21 U/L (15-37) D 07/18/16 08:25 ALT 35 U/L (12-78) D 07/18/16 08:25 Alkaline Phosphatase 55 U/L (45-117) 07/18/16 08:25 Total Protein 7.2 g/dl (6.4-8.2) 07/18/16 08:25 Albumin 3.8 g/dl (3.4-5.0) 07/18/16 08:25 CARDIAC ENZYMES Creatine Kinase 270 IU/L (39-308) D 07/18/16 17:15 Troponin I 0.03 ng/ml (0.00-0.05) D 07/18/16 17:15 A/P 80 yo M with PMH CAD s/p stents, HTN, dyslipidemia and recently treated for bronchitis with steroids presented to the ER and was admitted for further evaluation of their emergent condition 1. Perforated Peptic ulcer- s/p exlap with chester patch POD #2. likely combination of steroid and Advil. BOOKER drain with 275 output. management per surgery. NPO, PPI ggt. remains intubated for airway protection. full vent support. cont sedation and pain control. hold NSAIDS 2. Septic shock due to perotinitis with lactic acidosis- Tm 100.2. on levo 20mcg. titrate down pressor support. IVF. repeat lactic acid. ID consulted for abx coverage. will likely require fungal coverage as well due to steroid use. peritoneal Cx sent. Bcx pending. 3. OCHOA- likely due to hypotension. good UOP. avoid nephrotoxic agents. 4. Hyperkalemia- likely due to OCHOA. no peaked T waves on monitor. repeat labs 5. HTN-currently hypotensive on pressors. hold oral agents 6. CAD s/p stents- no signs of ACS. cardiac enzymes neg x2 7. DVT ppx- SCD. 8. repeat labs pending The care of this patient involved high complexity decision making to prevent further life threatening deterioration of the patient's condition and/or to evaluate & treat vital organ system(s) failure or risk of failure. critical care time 45 minutes Visit type - Emergency Visit Emergency Visit: Yes ED Registration Date: 07/18/16 Care time: The patient presented to the Emergency Department on the above date and was hospitalized for further evaluation of their emergent condition. - New Patient This patient is new to me today: Yes Date on this admission: 07/19/16 - Critical Care Critical Care patient: Yes Total Critical Care Time (in minutes): 45 Critical Care Statement: The care of this patient involved high complexity decision making to prevent further life threatening deterioration of the patient 's condition and/or to evalute & treat vital organ system(s) failure or risk of failure.
--- NOTE | 2016-07-19 09:07 | PN ---
Progress Note, Physician Chief Complaint: ID Full note dictated and discussed with Dr Anthony Chavez op day 2 - Current Medication List Current Medications: Active Medications Chlorhexidine Gluconate (Hibiclens For Decolonization -) 1 applic TP HS ROWDY Last Admin: 07/18/16 21:30 Dose: 1 applic Fentanyl (Sublimaze Injection -) 50 mcg IVPUSH Q1H PRN PRN Reason: PAIN LEVEL 6-10 Stop: 07/19/16 20:14 Last Admin: 07/19/16 06:34 Dose: 50 mcg Pantoprazole Sodium (Protonix 40mg Ivpb (Pre-Docked)) 100 mls @ 200 mls/hr IVPB DAILY ROWDY Sodium Chloride (Normal Saline -) 1,000 mls @ 100 mls/hr IV ASDIR ROWDY Last Admin: 07/19/16 06:34 Dose: 100 mls/hr Propofol (Diprivan -) 100 mls @ 4.082 mls/hr IVPB TITR ROWDY; 5 MCG/KG/MIN PRN Reason: Protocol Last Titration: 07/19/16 06:00 Dose: 45 mcg/kg/min Norepinephrine Bitartrate 8, (000 mcg/ Dextrose) 500 mls @ 15.3 mls/hr IV ASDIR ROWDY; 0.03 MCG/KG/MIN PRN Reason: Protocol Last Admin: 07/18/16 22:53 Dose: 75 mls/hr Mupirocin (Bactroban Ointment (For Decolonization) -) 1 applic NS BID ROWDY Stop: 07/23/16 21:59 Last Admin: 07/18/16 21:30 Dose: 1 applic Piperacillin Sod/Tazobactam Sod (Zosyn 2.25gm Ivpb (Pre-Docked)) 2.25 gm IVPB Q6H-IV ROWDY - Objective Vital Signs: Vital Signs Temperature 100.2 F H 07/19/16 06:00 Pulse Rate 70 07/19/16 06:00 Respiratory Rate 22 07/19/16 06:37 Blood Pressure 111/56 07/19/16 06:00 O2 Sat by Pulse Oximetry (%) 100 07/18/16 20:09 Labs: CBC, BMP 07/19/16 05:20 07/18/16 17:15 INR, PTT INR 1.06 (0.82-1.09) 07/18/16 11:00 Problem List - Problems (1) Bowel perforation Code(s): K63.1 - PERFORATION OF INTESTINE (NONTRAUMATIC) (2) Sepsis associated hypotension Code(s): A41.9 - SEPSIS, UNSPECIFIED ORGANISM (3) Peritonitis Code(s): K65.9 - PERITONITIS, UNSPECIFIED Assessment/Plan Microbiology Laboratory Tests 07/18/16 07/18/16 07/19/16 17:15 19:20 05:20 WBC 17.3 H D Hgb 12.9 Plt Count 251 ABG pH 7.22 L* ABG pCO2 at Pt Temp 45.9 H ABG pO2 at Pt Temp 361.0 H* D Random Glucose 128 H D Assessment Sepsis with peritonitis Recent antibiotics and steroids Plan empiric coverage with Zosyn and addition of antifungal therapy Panculture Await peritoneal culture Lewis ANNE
[2016-07-19] MEDS ORDERED: FLUCONAZOLE 400 MG/D5W 200 ML IVPB SCH (09:15)
[2016-07-19] MEDS ORDERED: FLUCONAZOLE 400 MG/D5W 200 ML IVPB ONE (09:20)
[2016-07-19 09:24] LABS: BASOPHIL 0.3 % (0-2.0); EOSINOPHIL 0.6 % (0-4.5); MCH 31.3 pg (25.7-33.7); MCHC 32.8 g/dl (32.0-35.9); MEAN CELL VOLUME 95.3 fl (80-96); PLATELET COUNT 208 K/MM3 (134-434); RDW 13.8 % (11.9-15.9); WHITE BLOOD COUNT 16.7 K/mm3 (4.0-10.0)
--- NOTE | 2016-07-19 09:49 | CONS ---
DATE OF CONSULTATION: JESUS MANUEL BRYAN DATE OF DICTATION: 07/19/2016 The case was discussed at length with Dr. Cruz in the ICU. HISTORY OF PRESENT ILLNESS: This is an 80-year-old male with a history of multiple comorbidities including coronary artery disease with stenting, hypertension, and dyslipidemia, who presented to the emergency room with abdominal pain and was found on CT scan to have a perforated viscus. He was taken to the operating room with findings of a perforated peptic ulcer with laparotomy and placement of a Orion patch, now day 2 in the ICU. Patient is noted to be in renal failure, noting that he has been on a nonsteroidal anti-inflammatory prior to admission along with steroids and recent antibiotics given for what was told to me as acute bronchitis. He is now in septic shock in the ICU and intubated, and I am asked to see him after he has received levofloxacin and metronidazole initially. PAST MEDICAL HISTORY: As noted above. CURRENT MEDICATIONS: Include pressors, Protonix, Diprivan. ALLERGIES: None known. SOCIAL HISTORY: A former smoker. No history of alcohol use FAMILY HISTORY: Currently unobtainable as patient is intubated. REVIEW OF SYSTEMS: Respiratory: Currently intubated. Cardiac: History of coronary stents. No recent chest pain, palpitations, syncope. Gastrointestinal: Postoperative day 2, perforated ulcer. Genitourinary: Currently incontinent of urine with a Denise catheter. Neuromuscular: No history of joint pain, seizure disorder. PHYSICAL EXAMINATION: General: He was a heavy-set, elderly male weighing over 300 pounds. Vital signs: Temperature was 100.2, pulse 70, blood pressure 111/56, respirations 22. HEENT: Revealed an endotracheal tube and a nasogastric tube. Neck: Supple, without adenopathy. Lungs: Bilateral coarse rhonchi. Heart: S1, S2, regular rhythm, without audible murmur. Abdomen: With a surgical dressing, Ca-Black drain, with serosanguinous fluid noted, mildly tender diffusely. Bowel sounds absent. Extremities: Without clubbing, cyanosis, or edema. The white count 17.3, hemoglobin 12.9, platelets 251. INR 1.06. ABG dated July 18 was 7.22, 45, 361 on 100% oxygen flow. BUN 73, creatinine 2.8, clearance 22, glucose 128. Liver enzymes 210 within normal limits. Two sets of blood cultures dated July 18 currently pending, no growth. Peritoneal culture and Gram stain pending. Chest x-ray from July 18 was reviewed, shows a jugular line, no evidence of infiltrate. ASSESSMENT: An 80-year-old male, day 2 surgery for perforated viscus, with underlying coronary artery disease with stents, a patient I was asked to see postoperatively with fever, white count, and diagnosis of sepsis. Patient has been on antibiotic prior to admission for bronchitis and also received steroids for bronchitis. I would treat broadly in view of his critical status. Will give Zosyn 2.25 g q.6 hours empirically for coverage of intraabdominal organisms with the addition of antifungal therapy. Will start with Diflucan pending peritoneal culture. If peritoneal culture shows no yeast, can discontinue antifungal therapy. If positive, depending on clinical status, could consider switching to an echinocandin for more broad antifungal coverage. Will panculture not only blood, but urine sputum and await peritoneal culture. The operative culture as per Dr. Shrestha was reviewed in detail. MICHELLE BRENNER M.D. [id number]
[2016-07-19 09:56] LABS: ALBUMIN 2.3 g/dl (3.4-5.0)
[2016-07-19 09:59] LABS: BILIRUBIN,TOTAL 0.4 mg/dL (0.2-1.0); CREATININE 2.3 mg/dL (0.7-1.3); TOT PROT 4.8 g/dl (6.4-8.2)
[2016-07-19] MEDS: PIPERACILLIN/TAZOB 2.25 GM/50 ML PRE-DOCKED BAG IVPB SCH ×3 (10:08→20:14)
[2016-07-19] MEDS: PANTOPRAZOLE SODIUM 100 ML IVPB SCH (10:08)
[2016-07-19] MEDS: MUPIROCIN 2% TOPICAL OINTMENT FOR DECOLONIZATION NS SCH ×3 (10:09→22:00)
[2016-07-19 10:16] LABS: CALCIUM 6.8 mg/dL (8.5-10.1)
--- NOTE | 2016-07-19 10:59 | PN ---
[id number]. Intubated/sedated. Last Vital Signs Temp Pulse Resp BP Pulse Ox 100.2 F H 60 20 111/62 97 07/19/16 06:00 07/19/16 10:00 07/19/16 10:00 07/19/16 10:00 07/19/16 10:00 CBC, BMP 07/19/16 09:00 07/19/16 09:00 Lactic acid- 1.5 from 2.2 BOOKER- 275 over 12 hours per nursing, 150 this morning per chart Mathis- 800 ml out per nursing Exam: Gen: Intubated/sedated Abd: Obese, soft, nondistended, BOOKER drain with serosanguineous drainage, some purulent material, midline dressing clean/dry/intact <Nahomy Ontiveros - Last Filed: 07/19/16 11:12> - Note Progress Note: Agree with general content of GUTIERREZ Ontiveros's assessment and plan of management. Continue ICU care per Critical Care team. <Lior Shrestha - Last Filed: 07/20/16 10:00> Problem List - Problems (1) Pneumoperitoneum Assessment/Plan: POD#1 s/p Exploratory laparotomy, Orion patch repair of perforated PUD Intubated/sedated, NPO Lactic acid 1.5 Monitor labs, wbc BUN/cr improving, making good urine Monitor BOOKER output GI prophylaxis Continue abx per ID Pain control Discussed with Dr. Shrestha Code(s): K66.8 - OTHER SPECIFIED DISORDERS OF PERITONEUM <Nahomy Ontiveros - Last Filed: 07/19/16 11:12> - Problems (1) Perforated peptic ulcer Code(s): K27.5 - CHRONIC OR UNSP PEPTIC ULCER, SITE UNSP, WITH PERFORATION <Lior Shrestha - Last Filed: 07/20/16 10:00>
--- NOTE | 2016-07-19 11:14 | PN ---
Progress Note (short form) - Note Progress Note: PULMONARY/CCM Pt seen and examined in the ICU. Remains intubated, sedated on propofol. On levophed gtt 20mcg/min. Low grade temp this AM. On volume assist control with 50 % FiO2 PEEP 0. Last Vital Signs Temp Pulse Resp BP Pulse Ox 100.2 F H 60 20 111/62 97 07/19/16 06:00 07/19/16 10:00 07/19/16 10:00 07/19/16 10:00 07/19/16 10:00 Intake & Output 07/16/16 07/17/16 07/18/16 07/19/16 23:59 23:59 23:59 23:59 Intake Total 5912 2124 Output Total 2345 950 Balance 3567 1174 Weight 300 lb 310 lb 3.046 oz Gen: intubated, sedated Heart: RRR Lung: decreased breath sounds at the bases Abd: soft, obese, dressings dry, +BOOKER with cloudy serosanguinous drainage Ext: no edema CBC, BMP 07/19/16 09:00 07/19/16 09:00 Active Medications Chlorhexidine Gluconate (Hibiclens For Decolonization -) 1 applic TP HS ROWDY Last Admin: 07/18/16 21:30 Dose: 1 applic Fentanyl (Sublimaze Injection -) 50 mcg IVPUSH Q1H PRN PRN Reason: PAIN LEVEL 6-10 Stop: 07/19/16 20:14 Last Admin: 07/19/16 06:34 Dose: 50 mcg Pantoprazole Sodium (Protonix 40mg Ivpb (Pre-Docked)) 100 mls @ 200 mls/hr IVPB DAILY ROWDY Last Admin: 07/19/16 10:08 Dose: 200 mls/hr Sodium Chloride (Normal Saline -) 1,000 mls @ 100 mls/hr IV ASDIR ROWDY Last Admin: 07/19/16 06:34 Dose: 100 mls/hr Propofol (Diprivan -) 100 mls @ 4.082 mls/hr IVPB TITR ROWDY; 5 MCG/KG/MIN PRN Reason: Protocol Last Admin: 07/19/16 11:11 Dose: 36.741 mls/hr Norepinephrine Bitartrate 8, (000 mcg/ Dextrose) 500 mls @ 15.3 mls/hr IV ASDIR ROWDY; 0.03 MCG/KG/MIN PRN Reason: Protocol Last Admin: 07/19/16 11:29 Dose: 75 mls/hr Fluconazole (Diflucan 200 Mg/D5w Premixed Ivpb -) 100 mls @ 100 mls/hr IVPB DAILY ROWDY Mupirocin (Bactroban Ointment (For Decolonization) -) 1 applic NS BID ROWDY Stop: 07/23/16 21:59 Last Admin: 07/19/16 10:09 Dose: 1 applic Piperacillin Sod/Tazobactam Sod (Zosyn 2.25gm Ivpb (Pre-Docked)) 2.25 gm IVPB Q6H-IV ROWDY Last Admin: 07/19/16 10:08 Dose: 2.25 gm A/P Perforate Peptic Ulcer s/p Ex-lap/Orion patch repair 07/18 Peritonitis Septic Shock Lactic Acidosis Acute Kidney Injury CAD HTN Morbid Obesity - continue antibiotics - f/u cultures - IVF resuscitation to keep CVP 8-12 - titrate pressors to maintain MAP >65 - sedate for vent synchrony - add fentanyl gtt for pain control - monitor urine output, creatinine - NPO - DVT/GI prophylaxis - ICU monitoring
--- NOTE | 2016-07-19 11:24 | PN ---
Progress Note (short form) - Note Progress Note: POD #1 - s/p exploratory laparotomy, repair of perforated gastric ulcer. Pt. remains intubated and sedated, on levophed for BP support. No apparent anesthetic complications noted. Continue current management.
[2016-07-19] MEDS: NOREPINEPHRINE BITARTRATE 8,000 MCG in DEXTROSE 5%-WATER - 492 ML IV SCH ×2 (11:29→20:11)
[2016-07-19 13:46] LABS: ARTERIAL BLD GAS O2 SATURATION 98.2 % (90-98.9); ARTERIAL BLOOD GAS BASE EXCESS -6.9 meq/l (-2-2); ARTERIAL BLOOD GAS HCO3 18.1 meq/L (22-26)
[2016-07-19 13:47] LABS: ALLENS TEST POSITIVE; ART PUNCT SITE LEFT RADIAL; ARTERIAL BLOOD GAS pH 7.32 (7.35-7.45); LPM/O2% 40%; MECH. VENT. ESPRIT; PT. ON O2? YES; TYPE OF O2 OT; VENT RATE 12; VT/PRESS 450
[2016-07-19] MEDS: FENTANYL INJECTION 500 MCG in DEXTROSE 5%-WATER - 90 ML IJ SCH ×2 (13:47→20:12)
[2016-07-19] MEDS: CHLORHEXIDINE GLUCONATE 4% CLEANSER FOR DECOLONIZATION TP SCH (20:15)
[2016-07-20] MEDS: PIPERACILLIN/TAZOB 2.25 GM/50 ML PRE-DOCKED BAG IVPB SCH ×4 (03:00→21:04)
[2016-07-20] MEDS ORDERED: NOREPINEPHRINE BITARTRATE 4 MG/4 ML ML IV ONE ×2 (05:13→11:51)
[2016-07-20] MEDS: CHLORHEXIDINE GLUCONATE 4% CLEANSER FOR DECOLONIZATION TP SCH ×2 (05:15→22:00)
[2016-07-20] MEDS: NOREPINEPHRINE BITARTRATE 8,000 MCG in DEXTROSE 5%-WATER - 492 ML IV SCH (05:16)
[2016-07-20 06:46] LABS: BASOPHIL 0.8 % (0-2.0); EOSINOPHIL 2.4 % (0-4.5); MCH 31.3 pg (25.7-33.7); MCHC 32.9 g/dl (32.0-35.9); MEAN CELL VOLUME 95.1 fl (80-96); MEAN PLT VOLUME 8.5 fl (7.5-11.1); NEUTROPHILS 83.8 % (42.8-82.8); PLATELET COUNT 192 K/MM3 (134-434); RDW 14.3 % (11.9-15.9); WHITE BLOOD COUNT 14.2 K/mm3 (4.0-10.0)
--- NOTE | 2016-07-20 06:59 | PN ---
Progress Note, Physician Chief Complaint: ID Day 3 post op Remains intubated Still on good bit of Levophed 17ug Zosyn Fluconazole Sedation - Current Medication List Current Medications: Active Medications Chlorhexidine Gluconate (Hibiclens For Decolonization -) 1 applic TP HS ROWDY Last Admin: 07/20/16 05:15 Dose: Not Given Pantoprazole Sodium (Protonix 40mg Ivpb (Pre-Docked)) 100 mls @ 200 mls/hr IVPB DAILY ROWDY Last Admin: 07/19/16 10:08 Dose: 200 mls/hr Sodium Chloride (Normal Saline -) 1,000 mls @ 100 mls/hr IV ASDIR ROWDY Last Admin: 07/19/16 17:01 Dose: 100 mls/hr Propofol (Diprivan -) 100 mls @ 4.082 mls/hr IVPB TITR ROWDY; 5 MCG/KG/MIN PRN Reason: Protocol Last Admin: 07/19/16 20:10 Dose: 32.659 mls/hr Norepinephrine Bitartrate 8, (000 mcg/ Dextrose) 500 mls @ 15.3 mls/hr IV ASDIR ROWDY; 0.03 MCG/KG/MIN PRN Reason: Protocol Last Admin: 07/20/16 05:16 Dose: 63.8 mls/hr Fluconazole (Diflucan 200 Mg/D5w Premixed Ivpb -) 100 mls @ 100 mls/hr IVPB DAILY ROWDY Fentanyl 500 mcg/ Dextrose 100 mls @ 10 mls/hr IJ TITR ROWDY PRN Reason: 50 MCG/HR Last Admin: 07/19/16 20:12 Dose: 4 mls/hr Mupirocin (Bactroban Ointment (For Decolonization) -) 1 applic NS BID ROWDY Stop: 07/23/16 21:59 Last Admin: 07/19/16 22:00 Dose: 1 applic Piperacillin Sod/Tazobactam Sod (Zosyn 2.25gm Ivpb (Pre-Docked)) 2.25 gm IVPB Q6H-IV ROWDY Last Admin: 07/20/16 03:00 Dose: 2.25 gm - Objective Vital Signs: Vital Signs Temperature 99 F 07/20/16 06:00 Pulse Rate 63 07/20/16 06:00 Respiratory Rate 18 07/20/16 06:00 Blood Pressure 101/47 07/20/16 06:00 O2 Sat by Pulse Oximetry (%) 100 07/19/16 22:02 Constitutional: Yes: Obese HENT: Yes: Other (Et tube) Cardiovascular: Yes: S1, S2 Respiratory: Yes: WNL, Regular, CTA Bilaterally Gastrointestinal: Yes: Soft, Other (Surgical incision retension sutures Drain) Edema: No Labs: INR, PTT INR 1.06 (0.82-1.09) 07/18/16 11:00 Problem List - Problems (1) Bowel perforation Code(s): K63.1 - PERFORATION OF INTESTINE (NONTRAUMATIC) (2) Sepsis associated hypotension Code(s): A41.9 - SEPSIS, UNSPECIFIED ORGANISM (3) Peritonitis Code(s): K65.9 - PERITONITIS, UNSPECIFIED Assessment/Plan Microbiology 07/18/16 08:00 Blood - Peripheral Venous Blood Culture - Preliminary NO GROWTH OBTAINED AFTER 24 HOURS, INCUBATION TO CONTINUE FOR 4 DAYS. 07/18/16 08:00 Blood - Peripheral Venous Blood Culture - Preliminary NO GROWTH OBTAINED AFTER 24 HOURS, INCUBATION TO CONTINUE FOR 4 DAYS. Laboratory Tests 07/19/16 07/19/16 07/19/16 05:20 09:00 09:00 WBC 16.7 H Hgb 12.8 Plt Count 208 BUN 59 H Creatinine 2.3 H Lactic Acid 2.201 H* 07/20/16 05:20 WBC Pending Hgb Pending Plt Count Pending BUN Creatinine Lactic Acid Assessment Day 3 post op perforated gastric ulcer Sepsis syndrome/peritonitits pressor dependent Multiorgan failure secondary perforation Plan Continue current antibiotics while awaiting final cultures Lewis ANNE
[2016-07-20 07:08] LABS: ALBUMIN 1.9 g/dl (3.4-5.0); MAGNESIUM 1.8 mg/dL (1.8-2.4)
[2016-07-20 07:12] LABS: BILIRUBIN,TOTAL 0.4 mg/dL (0.2-1.0); CREATININE 2.2 mg/dL (0.7-1.3); PHOSPHOROUS 2.7 mg/dL (2.5-4.9); TOT PROT 4.3 g/dl (6.4-8.2)
[2016-07-20] MEDS ORDERED: PROPOFOL 100 ML ONE (07:32)
[2016-07-20 07:48] LABS: CALCIUM 6.4 mg/dL (8.5-10.1)
[2016-07-20 07:50] LABS: ALLENS TEST POSITIVE; ART PUNCT SITE LEFT RADIAL; ARTERIAL BLD GAS O2 SATURATION 98.4 % (90-98.9); ARTERIAL BLOOD GAS BASE EXCESS -7.7 meq/l (-2-2); ARTERIAL BLOOD GAS HCO3 18.4 meq/L (22-26); ARTERIAL BLOOD GAS pH 7.27 (7.35-7.45)
[2016-07-20 07:51] LABS: LPM/O2% 40%; MECH. VENT. YES; PT. ON O2? YES; TYPE OF O2 MECH VENT; VENT RATE 12; VT/PRESS 450
[2016-07-20] MEDS: PANTOPRAZOLE SODIUM 100 ML IVPB SCH (09:20)
[2016-07-20] MEDS: FLUCONAZOLE 200 MG/D5W 100 ML IVPB SCH (09:26)
[2016-07-20] MEDS: MUPIROCIN 2% TOPICAL OINTMENT FOR DECOLONIZATION NS SCH ×2 (09:27→22:00)
--- NOTE | 2016-07-20 10:22 | PN ---
Progress Note (short form) - Note Progress Note: PULMONARY/CCM Pt seen and examined in the ICU. Remains intubated, sedated on propofol. On levophed gtt 17mcg/min. Low grade temp overnight. On volume assist control with 40% FiO2 PEEP 5. Good urine output. Last Vital Signs Temp Pulse Resp BP Pulse Ox 99 F 60 13 111/52 100 07/20/16 06:00 07/20/16 08:41 07/20/16 09:00 07/20/16 08:41 07/19/16 22:02 Intake & Output 07/17/16 07/18/16 07/19/16 07/20/16 23:59 23:59 23:59 23:59 Intake Total 5912 4906 2104 Output Total 2345 2930 730 Balance 3567 1976 1374 Weight 300 lb 310 lb 3.046 oz 313 lb 7.957 oz Gen: intubated, sedated Heart: RRR Lung: decreased breath sounds at the bases Abd: soft, obese, dressings dry, +BOOKER with cloudy serosanguinous drainage Ext: no edema CBC, BMP 07/20/16 05:20 07/20/16 05:20 Active Medications Chlorhexidine Gluconate (Hibiclens For Decolonization -) 1 applic TP HS ROWDY Last Admin: 07/20/16 05:15 Dose: Not Given Pantoprazole Sodium (Protonix 40mg Ivpb (Pre-Docked)) 100 mls @ 200 mls/hr IVPB DAILY ROWDY Last Admin: 07/20/16 09:20 Dose: 200 mls/hr Sodium Chloride (Normal Saline -) 1,000 mls @ 100 mls/hr IV ASDIR ROWDY Last Admin: 07/19/16 17:01 Dose: 100 mls/hr Propofol (Diprivan -) 100 mls @ 4.082 mls/hr IVPB TITR ROWDY; 5 MCG/KG/MIN PRN Reason: Protocol Last Admin: 07/19/16 20:10 Dose: 32.659 mls/hr Norepinephrine Bitartrate 8, (000 mcg/ Dextrose) 500 mls @ 15.3 mls/hr IV ASDIR ROWDY; 0.03 MCG/KG/MIN PRN Reason: Protocol Last Admin: 07/20/16 05:16 Dose: 63.8 mls/hr Fluconazole (Diflucan 200 Mg/D5w Premixed Ivpb -) 100 mls @ 100 mls/hr IVPB DAILY ROWDY Last Admin: 07/20/16 09:26 Dose: 100 mls/hr Fentanyl 500 mcg/ Dextrose 100 mls @ 10 mls/hr IJ TITR ROWDY PRN Reason: 50 MCG/HR Last Admin: 07/19/16 20:12 Dose: 4 mls/hr Mupirocin (Bactroban Ointment (For Decolonization) -) 1 applic NS BID [facility] Stop: 07/23/16 21:59 Last Admin: 07/20/16 09:27 Dose: 1 applic Piperacillin Sod/Tazobactam Sod (Zosyn 2.25gm Ivpb (Pre-Docked)) 2.25 gm IVPB Q6H-IV ROWDY Last Admin: 07/20/16 08:52 Dose: 2.25 gm A/P Perforated Prepyloric Ulcer s/p Ex-lap/Orion patch repair 07/18 Peritonitis Septic Shock Lactic Acidosis Acute Kidney Injury CAD HTN Morbid Obesity - continue antibiotics - f/u cultures - IVF resuscitation to keep CVP 8-12 - titrate pressors to maintain MAP >65 - sedate for vent synchrony - fentanyl gtt for pain control - monitor urine output, creatinine - NPO - DVT/GI prophylaxis - ICU monitoring
--- NOTE | 2016-07-20 10:26 | EKG ---
Test Reason : Blood Pressure : / mmHG Vent. Rate : 127 BPM Atrial Rate : 312 BPM P-R Int : 000 ms QRS Dur : 166 ms QT Int : 388 ms P-R-T Axes : 013 077 -07 degrees QTc Int : 563 ms NORMAL SINUS RHYTHM RIGHT BUNDLE BRANCH BLOCK INFERIOR INFARCT (CITED ON OR BEFORE 18-JUL-2016) NONSPECIFIC ST ABNORMALITY ABNORMAL ECG Confirmed by TWAN HYDE MD ([id number]) on 07/20/2016 10:26:11 AM Referred By: Confirmed By:TWAN HYDE MD
--- NOTE | 2016-07-20 10:45 | PN ---
Progress Note (short form) - Note Progress Note: Surgery- Dr. Shrestha Patient seen and examined. Patient discussed with nursing. Patient still intubated/sedated on levophed. Last Vital Signs Temp Pulse Resp BP Pulse Ox 99 F 60 13 111/52 100 07/20/16 06:00 07/20/16 08:41 07/20/16 09:00 07/20/16 08:41 07/19/16 22:02 CBC, BMP 07/20/16 05:20 07/20/16 05:20 BOOKER- 330 ml yesterday, 180 ml recorded so far today Mathis- 2600 ml yesterday, 550 ml today Exam: Gen: intubated/sedated ENT: NG tube in place Abd: obese, soft, nodistended, midline incision with retention sutures without erythema or drainage, packing and dressing changed on rounds, BOOKER drain right abdomen with serosanguineous drainage with some purulent material : Mathis in place <Nahomy Ontiveros - Last Filed: 07/20/16 11:09> - Note Progress Note: Surgery Attending Patient seen and examined. Vasopressor requirement decreased Agree with GUTIERREZ Ontiveros's assessment and plan of management <Lior Shrestha - Last Filed: 07/20/16 17:25> Problem List - Problems (1) Pneumoperitoneum Assessment/Plan: POD#2 s/p Exploratory laparotomy, Orion patch repair of perforated PUD Intubated/sedated NPO, NG Packing/dressing changed on rounds Monitor BUN/cr, urine output Monitor BOOKER output GI prophylaxis- pantoprazole Continue IV abx per ID Followup final culture Pain control DVT prophylaxis Continue ICU care per critical care Discussed with Dr. Shrestha Code(s): K66.8 - OTHER SPECIFIED DISORDERS OF PERITONEUM <Nahomy Ontiveros - Last Filed: 07/20/16 11:09> - Problems (1) Perforated peptic ulcer Code(s): K27.5 - CHRONIC OR UNSP PEPTIC ULCER, SITE UNSP, WITH PERFORATION <Lior Shrestha - Last Filed: 07/20/16 17:25>
--- NOTE | 2016-07-20 11:24 | PN ---
Teaching Attending Note Name of Resident: Giat Maldonado ATTENDING PHYSICIAN STATEMENT I saw and evaluated the patient. I reviewed the resident's note and discussed the case with the resident. I agree with the resident's findings and plan as documented. SUBJECTIVE:intubated. no reports of BM OBJECTIVE: Last Vital Signs Temp Pulse Resp BP Pulse Ox 99.7 F H 56 L 16 173/72 100 07/20/16 10:00 07/20/16 10:00 07/20/16 10:00 07/20/16 10:07/19/16 22:02 Intake & Output 07/17/16 07/18/16 07/19/16 07/20/16 23:59 23:59 23:59 23:59 Intake Total 5912 4906 2104 Output Total 2345 2930 730 Balance 3567 1976 1374 Weight 300 lb 310 lb 3.046 oz 313 lb 7.957 oz General sedated/intubated CV S1 S2 RRR no murmur/rub/gallop Lungs Coarse breath sounds anteriorly, no wheezing Abdomen soft nondistended, midline dressing c/d/i. no BS Extremities 1+pitting edema ASSESSMENT AND PLAN: 1 yo M with PMH CAD s/p stents, HTN, dyslipidemia and recently treated for bronchitis with steroids presented to the ER and was admitted for further evaluation of their emergent condition 1. Perforated Peptic ulcer- s/p exlap with chester patch POD #3. remains NPO, IVF , PPI and pressure support. no signs of bowel function yet. management per surgery. continues to have serosangeous drainage from BOOKER drain. full vent support. cont sedation and pain control. hold NSAIDS 2. Septic shock due to perotinitis with lactic acidosis- Tm 100.2. on levo 17mcg. titrate down pressor support. IVF. lactic acidis resolved. started on Zosyn and Fluconazole day 2. f/u Cx. ID consulted 3. Normocytic anemia-no signs of bleeding other mild sangeous drainage. no other signs of bleeding. will need to repeat Hgb levels and monitor. likely dome dilutional component. no need for txn at this time. 4. OCHOA- likely due to hypotension. good UOP. avoid nephrotoxic agents. 5. Hyperkalemia- likely due to OCHOA. resolved 6. HTN-currently hypotensive on pressors. hold oral agents 7. CAD s/p stents- no signs of ACS. cardiac enzymes neg x2 8. DVT ppx- SCD. The care of this patient involved high complexity decision making to prevent further life threatening deterioration of the patient's condition and/or to evaluate & treat vital organ system(s) failure or risk of failure. critical care time 40 minutes
--- NOTE | 2016-07-20 11:40 | PN ---
Physical Exam: SUBJECTIVE: Patient seen and examined at bedside. Intubated on AC control with 40% FiO2, PEEP 5. Sedated on propofol. Presser, levophed gtt 17mcg/min. Low grade temp overnight. On volume assist control with 40% FiO2 PEEP 5. I/O indicated below. Urine output so far today 550, 2L yesterday. Low grade fever overnight, 99F, rectal. OBJECTIVE: Vital Signs Period Temp Pulse Resp BP Sys/Navarrete Pulse Ox Last 24 Hr 99 F-100.2 F 5567 03-29/ 98-100 Intake & Output 07/19/16 07/19/16 07/20/16 11:59 23:59 11:59 Intake Total 2124 2782 2104 Output Total 950 1980 730 Balance 8732 839 7392 Weight 310 lb 3.046 oz 313 lb 7.957 oz Intake: IV 2124 2332 1856 Normal Saline - 1,000 ml 1000 880 @ 100 mls/hr IV ASDIR ROWDY Rx#:[id number] Normal Saline - 1,000 ml 1200 @ 1000 mls/hr IV ASDIR STA Rx#:[id number] Diprivan - 100 ml @ 5 MCG 324 432 352 /KG/MIN 4.082 mls/hr IVPB TITR ROWDY Rx#:[id number] Levophed - 8,000 Mcg In 600 900 624 D5w - 492 ml @ 0.03 MCG/ KG/MIN 15.3 mls/hr IV ASDIR ROWDY Rx#:[id number] IVPB 450 248 Output: Drainage 150 180 180 dieter 150 180 180 Urine 800 1800 550 Denise 800 1800 550 Other: Voiding Method Indwelling Catheter Indwelling Catheter Indwelling Catheter Bowel Movement No Weight Measurement Method Built in [facility] Built in [facility] Vital Signs Period Temp Pulse Resp BP Sys/Navarrete Pulse Ox Last 24 Hr 99 F-100.2 F 5567 03-29/100 GENERAL: intubated and sedated HEAD: Normal with no signs of trauma. LUNGS: decreased Breath sounds bases HEART: Regular rate and rhythm, S1, S2 without murmur, rub or gallop. ABDOMEN: Soft, obese dressing clean dry, intact; draining serosanginous fluid. n EXTREMITIES: 2+ pulses, warm, well-perfused, no edema. CBC, BMP 07/20/16 05:20 07/20/16 05:20 Active Medications Generic Name Dose Route Start Last Admin Trade Name Ck PRN Reason Stop Dose Admin Chlorhexidine Gluconate 1 applic 07/18/16 22:00 07/20/16 05:15 Hibiclens For Decolonization - TP Not Given HS ROWDY Pantoprazole Sodium 100 mls @ 200 mls/hr 07/19/16 10:00 07/20/16 09:20 Protonix 40mg Ivpb (Pre-Docked) IVPB 200 mls/hr DAILY ROWDY Administration Sodium Chloride 1,000 mls @ 100 mls/hr 07/18/16 16:08 07/19/16 17:01 Normal Saline - IV 100 mls/hr ASDIR ROWDY Administration Propofol 100 mls @ 4.082 mls/hr 07/18/16 18:45 07/19/16 20:10 Diprivan - IVPB 32.659 mls/hr TITR ROWDY Administration Protocol 5 MCG/KG/MIN Norepinephrine Bitartrate 8, 500 mls @ 15.3 mls/hr 07/18/16 21:45 07/20/16 11: 28 000 mcg/ Dextrose IV 0.11 mcg/kg/min ASDIR ROWDY Titration Protocol 0.03 MCG/KG/MIN Fluconazole 100 mls @ 100 mls/hr 07/20/16 10:00 07/20/16 09:26 Diflucan 200 Mg/D5w Premixed Ivpb - IVPB 100 mls/hr DAILY ROWDY Administration Fentanyl 500 mcg/ Dextrose 100 mls @ 10 mls/hr 07/19/16 12:45 07/19/16 20:12 IJ 4 mls/hr TITR ROWDY Administration 50 MCG/HR Mupirocin 1 applic 07/18/16 22:00 07/20/16 09:27 Bactroban Ointment (For Decolonization) - NS 07/23/16 21:59 1 applic BID ROWDY Administration Piperacillin Sod/Tazobactam Sod 2.25 gm 07/19/16 09:15 07/20/16 08:52 Zosyn 2.25gm Ivpb (Pre-Docked) IVPB 2.25 gm Q6H-IV ROWDY Administration ASSESSMENT/PLAN: 80 yo male with a PMH HTN , HLD, CAD s/p stents (unknown), admitted for perforated peptic ulcer, s/p exlap with chester patch. Currently intubated and sedated on levophed. 1. Perforated peptic ulcer -POD #3 ex lap with chester patch. -Intubated and sedated; NPO, IVF, pain control 2. Septic shock secondary to peritonitis with lactic acidosis -lactic acidosis resolved -cont levophed; titrate down -trend cbc -await cultures -cont zosyn and fluconazole -appreciate ID 3. Acute on chronic kidney injury: slightly improved -most likey due to hypotension -BUN/Cr 44/2.2 today -Gentle hydration -atrophic left kidney seen on imaging 4. Normocytic anemia -s/p ex lap; most likey from surger -H/H improving today; will trend 5. HTN: -currently hypotensive; -on levophed -hold all anti hypertensives- 7. CAD s/p stents: -cardiac enzymes negative 8. Hypocalcemia: -replace 1x calcium gluconate 1,000mg FEN: Fluids: NS 100mls/hr Electrolytes: hyperkalemia: resolved Diet: NPO DVT prophylaxis: SCDs Disposition: continue management , critical care Problem List - Problems (1) Bowel perforation Code(s): K63.1 - PERFORATION OF INTESTINE (NONTRAUMATIC) (2) Pneumoperitoneum Code(s): K66.8 - OTHER SPECIFIED DISORDERS OF PERITONEUM (3) Sepsis associated hypotension Code(s): A41.9 - SEPSIS, UNSPECIFIED ORGANISM (4) Hypocalcemia Code(s): E83.51 - HYPOCALCEMIA (5) Acute kidney injury Code(s): N17.9 - ACUTE KIDNEY FAILURE, UNSPECIFIED (6) Gout Code(s): M10.9 - GOUT, UNSPECIFIED (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 - Discharge Referral Referred to [facility] No
[2016-07-20] MEDS ORDERED: CALCIUM GLUCONATE 10% - 1,000 MG/10 ML VIAL IVPUSH ONE (12:11)
[2016-07-20] MEDS: FENTANYL INJECTION 500 MCG in DEXTROSE 5%-WATER - 90 ML IJ SCH (12:39)
[2016-07-20] MEDS ORDERED: CALCIUM GLUCONATE 10% - 1,000 MG/10 ML VIAL ONE (12:41)
[2016-07-20] MEDS: SODIUM CHLORIDE 1,000 ML IV SCH (21:03)
[2016-07-20] MEDS: PROPOFOL 100 ML IVPB SCH (21:04)
[2016-07-21] MEDS ORDERED: PROPOFOL 100 ML ONE (00:14)
[2016-07-21] MEDS: PIPERACILLIN/TAZOB 2.25 GM/50 ML PRE-DOCKED BAG IVPB SCH ×4 (03:00→20:22)
[2016-07-21 06:14] LABS: BASOPHIL 0.3 % (0-2.0); EOSINOPHIL 3.5 % (0-4.5); MCH 31.3 pg (25.7-33.7); MCHC 32.6 g/dl (32.0-35.9); MEAN PLT VOLUME 8.4 fl (7.5-11.1); NEUTROPHILS 81.2 % (42.8-82.8); PLATELET COUNT 172 K/MM3 (134-434); RDW 14.3 % (11.9-15.9); WHITE BLOOD COUNT 10.9 K/mm3 (4.0-10.0)
[2016-07-21 06:43] LABS: ALBUMIN 1.8 g/dl (3.4-5.0); MAGNESIUM 1.9 mg/dL (1.8-2.4)
[2016-07-21 06:47] LABS: BILIRUBIN,TOTAL 0.4 mg/dL (0.2-1.0); TOT PROT 4.3 g/dl (6.4-8.2)
[2016-07-21 07:01] LABS: CALCIUM 6.7 mg/dL (8.5-10.1)
--- NOTE | 2016-07-21 07:39 | PN ---
Progress Note (short form) - Note Progress Note: POD #3 s/p Exploratory laparotomy, Orion patch repair of perforated PUD No acute events over past 24hrs per RN notes. Remains sedated and intubated since surgery. Levophed drip for pressure support. Last Vital Signs Temp Pulse Resp BP Pulse Ox 99.1 F 61 17 114/65 100 07/21/16 06:00 07/21/16 06:00 07/21/16 06:10 07/21/16 06:00 07/20/16 20:45 CBC, BMP 07/21/16 05:40 07/21/16 05:40 INR, PTT INR 1.06 (0.82-1.09) 07/18/16 11:00 Blood Type Blood Type A POSITIVE 07/18/16 11:00 Selected Entries 07/20/16 07/20/16 07/20/16 05:19 07:25 13:03 Output, 180 120 Drainage Amount [dieter] Output, Urine 550 Amount [Denise] 07/20/16 07/20/16 07/21/16 15:00 22:00 06:00 Output, 80 Drainage Amount [dieter] Output, Urine 1,100 600 550 Amount [Denise] DIETER --> 80mL serosang (300mL yesterday) Denise--> 550mL PE GEN: NAD. Intubated/sedated. ENT: NGT secured in place Abd: obese. Midline incision with retention sutures intact. Packing removed on rounds. Wound is clean. No erythema or drainage. DITEER on bulb suction. : Denise to gravity. Scrotal swelling. UE/LE: Anisarca. Problem List - Problems (1) S/P exploratory laparotomy Assessment/Plan: POD#3 s/p Exploratory laparotomy, Orion patch repair of perforated PUD Intubated/sedated NPO / IVF GI / DVT ppx NGT to intermittent LWCS Packing/dressing changed on rounds Monitor BUN/Cr Monitor I/Os IV abx per ID Pain control Cont ICU care per critical care Wean to extubate at ICU discretion Code(s): Z98.89 - OTHER SPECIFIED POSTPROCEDURAL STATES * DO NOT USE * (2) Pneumoperitoneum Code(s): K66.8 - OTHER SPECIFIED DISORDERS OF PERITONEUM
--- NOTE | 2016-07-21 07:39 | PN ---
Progress Note, Physician Chief Complaint: ID Remains intubated Sedation & pressor BP support Day 3 Zosyn and Fluconazole - Current Medication List Current Medications: Active Medications Chlorhexidine Gluconate (Hibiclens For Decolonization -) 1 applic TP HS ROWDY Last Admin: 07/20/16 22:00 Dose: 1 applic Pantoprazole Sodium (Protonix 40mg Ivpb (Pre-Docked)) 100 mls @ 200 mls/hr IVPB DAILY ROWDY Last Admin: 07/20/16 09:20 Dose: 200 mls/hr Sodium Chloride (Normal Saline -) 1,000 mls @ 100 mls/hr IV ASDIR ROWDY Last Admin: 07/20/16 21:03 Dose: 100 mls/hr Propofol (Diprivan -) 100 mls @ 4.082 mls/hr IVPB TITR ROWDY; 5 MCG/KG/MIN PRN Reason: Protocol Last Admin: 07/20/16 21:04 Dose: 32.659 mls/hr Norepinephrine Bitartrate 8, (000 mcg/ Dextrose) 500 mls @ 15.3 mls/hr IV ASDIR ROWDY; 0.03 MCG/KG/MIN PRN Reason: Protocol Last Titration: 07/20/16 12:00 Dose: 0.08 mcg/kg/min Fluconazole (Diflucan 200 Mg/D5w Premixed Ivpb -) 100 mls @ 100 mls/hr IVPB DAILY [facility] Last Admin: 07/20/16 09:26 Dose: 100 mls/hr Fentanyl 500 mcg/ Dextrose 100 mls @ 10 mls/hr IJ TITR ROWDY PRN Reason: 50 MCG/HR Last Admin: 07/20/16 12:39 Dose: 4 mls/hr Mupirocin (Bactroban Ointment (For Decolonization) -) 1 applic NS BID ROWDY Stop: 07/23/16 21:59 Last Admin: 07/20/16 22:00 Dose: 1 applic Piperacillin Sod/Tazobactam Sod (Zosyn 2.25gm Ivpb (Pre-Docked)) 2.25 gm IVPB Q6H-IV ROWDY Last Admin: 07/21/16 03:00 Dose: 2.25 gm - Objective Vital Signs: Vital Signs Temperature 99.1 F 07/21/16 06:00 Pulse Rate 61 07/21/16 06:00 Respiratory Rate 17 07/21/16 06:10 Blood Pressure 114/65 07/21/16 06:00 O2 Sat by Pulse Oximetry (%) 100 07/20/16 20:45 HENT: Yes: Other (INtubated) Gastrointestinal: Yes: Soft, Other (INcision with retension sutures clean BOOKER drain) Labs: CBC, BMP 07/21/16 05:40 07/21/16 05:40 INR, PTT INR 1.06 (0.82-1.09) 07/18/16 11:00 Problem List - Problems (1) Bowel perforation Code(s): K63.1 - PERFORATION OF INTESTINE (NONTRAUMATIC) (2) Sepsis associated hypotension Code(s): A41.9 - SEPSIS, UNSPECIFIED ORGANISM (3) Peritonitis Code(s): K65.9 - PERITONITIS, UNSPECIFIED Assessment/Plan Microbiology 07/19/16 10:30 Urine - Urine Denise Urine Culture - Final NO GROWTH OBTAINED 07/18/16 14:30 Peritoneal Fluid Gram Stain - Final 07/18/16 14:30 Peritoneal Fluid Body Fluid Culture - Preliminary Pending Organism Pending Organism#2 Pending Organism#3 07/18/16 08:00 Blood - Peripheral Venous Blood Culture - Preliminary NO GROWTH OBTAINED AFTER 48 HOURS, INCUBATION TO CONTINUE FOR 3 DAYS. 07/18/16 08:00 Blood - Peripheral Venous Blood Culture - Preliminary NO GROWTH OBTAINED AFTER 48 HOURS, INCUBATION TO CONTINUE FOR 3 DAYS. Laboratory Tests 07/19/16 07/19/16 07/19/16 05:20 05:20 09:00 WBC 17.3 H D Hgb Hct Plt Count ABG pH ABG pO2 at Pt Temp Oxygen Flow Rate Creat Clearance w eGFR Lactic Acid 2.201 H* 1.515 Calcium 07/20/16 07/20/16 07/21/16 05:20 07:50 05:40 WBC 10.9 H Hgb 10.0 L Hct 30.6 L Plt Count 172 ABG pH 7.27 L ABG pO2 at Pt Temp 122.0 H Oxygen Flow Rate 40% Creat Clearance w eGFR Lactic Acid Calcium 6.4 L* 07/21/16 05:40 WBC Hgb Hct Plt Count ABG pH ABG pO2 at Pt Temp Oxygen Flow Rate Creat Clearance w eGFR 32.31 Lactic Acid Calcium Assessment Sepsis syndrome intrabdominal source Peritonitis from perforation ( polymicrobial) Respiratory failure Obesity Acute kidney injury Plan Continue current antibiotic and antifungal pending final culture reports available Lewis ANNE
[2016-07-21] MEDS ORDERED: NOREPINEPHRINE BITARTRATE 4 MG/4 ML ML IV ONE (07:42)
[2016-07-21 07:46] LABS: ARTERIAL BLD GAS O2 SATURATION 97.8 % (90-98.9); ARTERIAL BLOOD GAS BASE EXCESS -8.5 meq/l (-2-2)
[2016-07-21 07:48] LABS: ALLENS TEST POSITIVE; ART PUNCT SITE RIGHT RADIAL; PT. ON O2? YES
[2016-07-21 07:49] LABS: LPM/O2% 35%; MECH. VENT. YES; TYPE OF O2 VENT; VENT RATE 14; VT/PRESS 450
[2016-07-21 07:50] LABS: ARTERIAL BLOOD GAS pH 7.25 (7.35-7.45)
[2016-07-21] MEDS: NOREPINEPHRINE BITARTRATE 8,000 MCG in DEXTROSE 5%-WATER - 492 ML IV SCH (08:05)
[2016-07-21] MEDS: PANTOPRAZOLE SODIUM 100 ML IVPB SCH (09:07)
[2016-07-21] MEDS: FLUCONAZOLE 200 MG/D5W 100 ML IVPB SCH (09:07)
[2016-07-21] MEDS: MUPIROCIN 2% TOPICAL OINTMENT FOR DECOLONIZATION NS SCH (09:08)
[2016-07-21] MEDS: FENTANYL INJECTION 500 MCG in DEXTROSE 5%-WATER - 90 ML IJ SCH (13:00)
--- NOTE | 2016-07-21 13:40 | PN ---
Teaching Attending Note Name of Resident: Del Wilhelm ATTENDING PHYSICIAN STATEMENT I saw and evaluated the patient. I reviewed the resident's note and discussed the case with the resident. I agree with the resident's findings and plan as documented. SUBJECTIVE: Pt seen and examined in the ICU. Remains intubated, sedated on lower dose levophed gtt. OBJECTIVE: Last Vital Signs Temp Pulse Resp BP Pulse Ox 98.1 F 54 L 14 96/51 100 07/21/16 12:00 07/21/16 12:00 07/21/16 12:00 07/21/16 12:00 07/20/16 20:45 Intake & Output 07/18/16 07/19/16 07/20/16 07/21/16 23:59 23:59 23:59 23:59 Intake Total 5912 4906 4466 2082 Output Total 2345 2930 2550 630 Balance 3567 1976 1916 1452 Weight 300 lb 310 lb 3.046 oz 313 lb 7.957 oz 315 lb 4.8 oz Gen: intubated, sedated Heart: RRR Lung: distant breath sounds Abd: soft, obese, +BOOKER with cloudy serosanguinous drainage Ext: trace edema CBC, BMP 07/21/16 05:40 07/21/16 05:40 Active Medications Chlorhexidine Gluconate (Hibiclens For Decolonization -) 1 applic TP HS ROWDY Last Admin: 07/20/16 22:00 Dose: 1 applic Pantoprazole Sodium (Protonix 40mg Ivpb (Pre-Docked)) 100 mls @ 200 mls/hr IVPB DAILY ROWDY Last Admin: 07/21/16 09:07 Dose: 200 mls/hr Sodium Chloride (Normal Saline -) 1,000 mls @ 100 mls/hr IV ASDIR ROWDY Last Admin: 07/20/16 21:03 Dose: 100 mls/hr Propofol (Diprivan -) 100 mls @ 4.082 mls/hr IVPB TITR ROWDY; 5 MCG/KG/MIN PRN Reason: Protocol Last Admin: 07/20/16 21:04 Dose: 32.659 mls/hr Norepinephrine Bitartrate 8, (000 mcg/ Dextrose) 500 mls @ 15.3 mls/hr IV ASDIR ROWDY; 0.03 MCG/KG/MIN PRN Reason: Protocol Last Admin: 07/21/16 08:05 Dose: 15 mls/hr Fluconazole (Diflucan 200 Mg/D5w Premixed Ivpb -) 100 mls @ 100 mls/hr IVPB DAILY [facility] Last Admin: 07/21/16 09:07 Dose: 100 mls/hr Fentanyl 500 mcg/ Dextrose 100 mls @ 10 mls/hr IJ TITR ROWDY PRN Reason: 50 MCG/HR Last Titration: 07/21/16 12:27 Dose: 15 mcg/hr Mupirocin (Bactroban Ointment (For Decolonization) -) 1 applic NS BID RWODY Stop: 07/23/16 21:59 Last Admin: 07/21/16 09:08 Dose: 1 applic Piperacillin Sod/Tazobactam Sod (Zosyn 2.25gm Ivpb (Pre-Docked)) 2.25 gm IVPB Q6H-IV ROWDY Last Admin: 07/21/16 08:06 Dose: 2.25 gm ASSESSMENT AND PLAN: Perforated Prepyloric Ulcer s/p Ex-lap/Orion patch repair 07/18 Peritonitis Septic Shock Lactic Acidosis Acute Kidney Injury CAD HTN Morbid Obesity - continue antibiotics - f/u peritoneal cultures - IVF resuscitation to keep CVP 8-12 - titrate pressors to maintain MAP >65 - sedate for vent synchrony - fentanyl gtt for pain control - lighten sedation in AM to assess mental status - monitor urine output, creatinine - NPO - DVT/GI prophylaxis - ICU monitoring
--- NOTE | 2016-07-21 14:42 | PN ---
Physical Exam: SUBJECTIVE: Patient seen and examined at bedside in ICU. Afebrile overnight with good urine output. BP stable with lower doses of Levophed. OBJECTIVE: Vital Signs Period Temp Pulse Resp BP Sys/Navarrete Pulse Ox Last 24 Hr 98.1 F-99.1 F 54-65 - 91-117/47-65 100 GENERAL: Intubated & sedated, in no acute distress HEENT:Atraumatic, PERRLA, No lymphadenopathy noted, Moist membranes LUNGS: CTA bilaterally HEART: rrr, s1s2 ABDOMEN: Soft, nontender, nondistended, normoactive bowel sounds; BOOKER with 80mL serosanguinous fluid EXTREMITIES: 2+ pulses, warm, well-perfused, no edema. SKIN: Warm, dry, normal turgor, no rashes or lesions noted Laboratory Results - last 24 hr 07/21/16 07/21/16 07/21/16 05:40 05:40 07:15 WBC 10.9 H RBC 3.19 L Hgb 10.0 L Hct 30.6 L MCV 96.0 MCHC 32.6 RDW 14.3 Plt Count 172 MPV 8.4 Neutrophils % 81.2 Lymphocytes % 9.1 Monocytes % 5.9 Eosinophils % 3.5 Basophils % 0.3 Puncture Site Right radial ABG pH 7.25 L ABG pCO2 at Pt Temp 42.2 ABG pO2 at Pt Temp 112.0 H ABG HCO3 18.0 L ABG O2 Sat (Measured) 97.8 ABG O2 Content 17.3 ABG Base Excess -8.5 L Jayy Test Positive O2 Delivery Device Vent Oxygen Flow Rate 35% Vent Mode A/c Vent Rate 14 Mechanical Rate Yes PEEP 5.0 Pressure Support Vent 450 Sodium 139 Potassium 4.5 Chloride 109 H Carbon Dioxide 20 L Anion Gap 10 BUN 32 H D Creatinine 2.0 H Creat Clearance w eGFR 32.31 Random Glucose 140 H Calcium 6.7 L* Phosphorus 3.0 Magnesium 1.9 Total Bilirubin 0.4 AST 12 L D ALT 22 Alkaline Phosphatase 54 D Total Protein 4.3 L Albumin 1.8 L Active Medications Generic Name Dose Route Start Last Admin Trade Name Freq PRN Reason Stop Dose Admin Chlorhexidine Gluconate 1 applic 07/18/16 22:00 07/20/16 22:00 Hibiclens For Decolonization - TP 1 applic HS ROWDY Administration Pantoprazole Sodium 100 mls @ 200 mls/hr 07/19/16 10:00 07/21/16 09:07 Protonix 40mg Ivpb (Pre-Docked) IVPB 200 mls/hr DAILY ROWDY Administration Sodium Chloride 1,000 mls @ 100 mls/hr 07/18/16 16:08 07/20/16 21:03 Normal Saline - IV 100 mls/hr ASDIR ROWDY Administration Propofol 100 mls @ 4.082 mls/hr 07/18/16 18:45 07/20/16 21:04 Diprivan - IVPB 32.659 mls/hr TITR ROWDY Administration Protocol 5 MCG/KG/MIN Norepinephrine Bitartrate 8, 500 mls @ 15.3 mls/hr 07/18/16 21:45 07/21/16 08: 05 000 mcg/ Dextrose IV 15 mls/hr ASDIR ROWDY Administration Protocol 0.03 MCG/KG/MIN Fluconazole 100 mls @ 100 mls/hr 07/20/16 10:00 07/21/16 09:07 Diflucan 200 Mg/D5w Premixed Ivpb - IVPB 100 mls/hr DAILY ROWDY Administration Fentanyl 500 mcg/ Dextrose 100 mls @ 10 mls/hr 07/19/16 12:45 07/21/16 13:00 IJ 3 mls/hr TITR ROWDY Administration 50 MCG/HR Mupirocin 1 applic 07/18/16 22:00 07/21/16 09:08 Bactroban Ointment (For Decolonization) - NS 07/23/16 21:59 1 applic BID ROWDY Administration Piperacillin Sod/Tazobactam Sod 2.25 gm 07/19/16 09:15 07/21/16 14:04 Zosyn 2.25gm Ivpb (Pre-Docked) IVPB 2.25 gm Q6H-IV ROWDY Administration ASSESSMENT/PLAN: 80 year old male with PMH of HTN, HLD, CAD s/p stents who was admitted for perforated peptic ulcer. He is POD#3 s/p ex-lap with chester patch. Currently intubated and sedated. #Perforated peptic ulcer -POD#3 s/p exploratory laparotomy, 80mL serosanguinous fluid output -NPO at present -intubated & sedated on Propofol -pain management #Septic Shock, secondary to peritonitis with lactic acidosis -levophed was titrated down slowly until discontinued this afternoon -Keep MAP>65 -On Zosyn, Fluconazole -awaiting peritoneal fluid culture results #Acute on Chronic Kidney failure -likely secondary to hypotension -Creatinine improving with hydration -continue to trend -avoid nephrotoxic meds #Normocytic Anemia -will trend Prophylaxis/FEN -SCD, PPI -NS@100mls/hr, monitor electrolytes, NPO at present Visit type - Emergency Visit Emergency Visit: Yes ED Registration Date: 07/18/16 Care time: The patient presented to the Emergency Department on the above date and was hospitalized for further evaluation of their emergent condition. - New Patient This patient is new to me today: Yes Date on this admission: 07/21/16 - Critical Care Critical Care patient: Yes Total Critical Care Time (in minutes): 45 Critical Care Statement: The care of this patient involved high complexity decision making to prevent further life threatening deterioration of the patient 's condition and/or to evalute & treat vital organ system(s) failure or risk of failure.
--- NOTE | 2016-07-21 14:48 | PN ---
Teaching Attending Note Name of Resident: Jefe Santiago ATTENDING PHYSICIAN STATEMENT I saw and evaluated the patient. I reviewed the resident's note and discussed the case with the resident. I agree with the resident's findings and plan as documented. SUBJECTIVE:intubated/sedated OBJECTIVE: Last Vital Signs Temp Pulse Resp BP Pulse Ox 98.1 F 54 L 17 96/51 100 07/21/16 12:00 07/21/16 12:00 07/21/16 13:55 07/21/16 12:00 07/20/16 20:45 Intake & Output 07/18/16 07/19/16 07/20/16 07/21/16 23:59 23:59 23:59 23:59 Intake Total 5912 4906 4466 2082 Output Total 2345 2930 2550 630 Balance 3567 1976 1916 1452 Weight 300 lb 310 lb 3.046 oz 313 lb 7.957 oz 315 lb 4.8 oz General sedated/intubated CV S1 S2 RRR no murmur/rub/gallop Lungs Coarse breath sounds anteriorly, no wheezing Abdomen soft nondistended, midline dressing c/d/i. no BS Extremities 1+pitting edema ASSESSMENT AND PLAN: 1 yo M with PMH CAD s/p stents, HTN, dyslipidemia and recently treated for bronchitis with steroids presented to the ER and was admitted for further evaluation of their emergent condition 1. Perforated Peptic ulcer- s/p exlap with chester patch POD #4. able to turn levo to 4mcg at this time showing minimal progress. BOOKER drain is more serous today then previously. NPO, IVF, PPI. no signs of bowel function yet. management per surgery. sedation vacation. full vent support. cont sedation and pain control. hold NSAIDS 2. Septic shock due to perotinitis with lactic acidosis- afebrile. on levo 4mcg. titrate down pressor support. IVF. on Zosyn and Fluconazole day 3. f/u Cx. ID consulted 3. Normocytic anemia-no signs of bleeding. now stablized will still need to be monitored. no need for txn at this time. 4. OCHOA- likely due to hypotension. good UOP. avoid nephrotoxic agents. 5. Hyperkalemia- likely due to OCHOA. resolved 6. HTN-currently hypotensive on pressors. hold oral agents 7. CAD s/p stents- no signs of ACS. cardiac enzymes neg x2 8. DVT ppx- SCD. 9. MICU monitoring The care of this patient involved high complexity decision making to prevent further life threatening deterioration of the patient's condition and/or to evaluate & treat vital organ system(s) failure or risk of failure. critical care time 45 minutes
--- NOTE | 2016-07-21 15:11 | PN ---
Physical Exam: SUBJECTIVE: Patient seen and examined remains intubated and sedated. Sedation decreased today, levophed down to 4mcg/kg. Vitals stable. FiO2 decreased to 35% , PEEP 5, CVP 8-12, urine output > 2L in 24hrs. OBJECTIVE: Vital Signs Period Temp Pulse Resp BP Sys/Navarrete Pulse Ox Last 24 Hr 98.1 F-99.1 F 54-65 13-17 91-117/47-65 100 GENERAL: intubated and sedated, not responsive to tactile /verbal stimuli HEAD: Normal with no signs of trauma. LUNGS: decreased Breath sounds bases HEART: Regular rate and rhythm, S1, S2 without murmur, rub or gallop. ABDOMEN: Soft, obese dressing clean dry, intact; draining serosanginous fluid. n EXTREMITIES: 2+ pulses, warm, well-perfused, no edema. CBC, BMP 07/21/16 05:40 07/21/16 05:40 Active Medications Generic Name Dose Route Start Last Admin Trade Name Freq PRN Reason Stop Dose Admin Chlorhexidine Gluconate 1 applic 07/18/16 22:00 07/20/16 22:00 Hibiclens For Decolonization - TP 1 applic HS ROWDY Administration Pantoprazole Sodium 100 mls @ 200 mls/hr 07/19/16 10:00 07/21/16 09:07 Protonix 40mg Ivpb (Pre-Docked) IVPB 200 mls/hr DAILY ROWDY Administration Sodium Chloride 1,000 mls @ 100 mls/hr 07/18/16 16:08 07/20/16 21:03 Normal Saline - IV 100 mls/hr ASDIR ROWDY Administration Propofol 100 mls @ 4.082 mls/hr 07/18/16 18:45 07/20/16 21:04 Diprivan - IVPB 32.659 mls/hr TITR ROWDY Administration Protocol 5 MCG/KG/MIN Norepinephrine Bitartrate 8, 500 mls @ 15.3 mls/hr 07/18/16 21:45 07/21/16 08: 05 000 mcg/ Dextrose IV 15 mls/hr ASDIR ROWDY Administration Protocol 0.03 MCG/KG/MIN Fluconazole 100 mls @ 100 mls/hr 07/20/16 10:00 07/21/16 09:07 Diflucan 200 Mg/D5w Premixed Ivpb - IVPB 100 mls/hr DAILY ROWDY Administration Fentanyl 500 mcg/ Dextrose 100 mls @ 10 mls/hr 07/19/16 12:45 07/21/16 13:00 IJ 3 mls/hr TITR ROWDY Administration 50 MCG/HR Mupirocin 1 applic 07/18/16 22:00 07/21/16 09:08 Bactroban Ointment (For Decolonization) - NS 07/23/16 21:59 1 applic BID ROWDY Administration Piperacillin Sod/Tazobactam Sod 2.25 gm 07/19/16 09:15 07/21/16 14:04 Zosyn 2.25gm Ivpb (Pre-Docked) IVPB 2.25 gm Q6H-IV ROWDY Administration ASSESSMENT/PLAN: 80 yo male with a PMH HTN , HLD, CAD s/p stents (unknown), admitted for perforated peptic ulcer, s/p exlap with chester patch. Currently intubated and sedated on levophed. 1. Perforated peptic ulcer -POD #4 ex lap with chester patch. -Intubated and sedated; sedation decreased; plan to wean tomorrow - NPO, IVF, pain control 2. Septic shock secondary to peritonitis with lactic acidosis -lactic acidosis resolved -cont levophed; titrate down to 4mcg/kg today -leukocytosis improving -await cultures pending; 3 organisms growing -cont zosyn and fluconazole -appreciate ID 3. Acute on chronic kidney injury: slightly improved -most likey due to hypotension -BUN/Cr 32/2.0 today -Gentle hydration -atrophic left kidney seen on imaging 4. Normocytic anemia -s/p ex lap; most likely from surgery; -H/H improving stable; will trend 5. HTN: -normotensive; -on levophed -hold all anti hypertensives- 7. CAD s/p stents: -cardiac enzymes negative 8. Hypocalcemia: -Ca correction just slight below normal FEN: Fluids: NS 100mls/hr Electrolytes: hyperkalemia: resolved Diet: NPO DVT prophylaxis: SCDs Disposition: continue management , critical care Problem List - Problems (1) Bowel perforation Code(s): K63.1 - PERFORATION OF INTESTINE (NONTRAUMATIC) (2) Pneumoperitoneum Code(s): K66.8 - OTHER SPECIFIED DISORDERS OF PERITONEUM (3) Sepsis associated hypotension Code(s): A41.9 - SEPSIS, UNSPECIFIED ORGANISM (4) Hypocalcemia Code(s): E83.51 - HYPOCALCEMIA (5) Acute kidney injury Code(s): N17.9 - ACUTE KIDNEY FAILURE, UNSPECIFIED (6) Gout Code(s): M10.9 - GOUT, UNSPECIFIED (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 - New Patient This patient is new to me today: No - Critical Care Critical Care patient: Yes Total Critical Care Time (in minutes): 40 Critical Care Statement: The care of this patient involved high complexity decision making to prevent further life threatening deterioration of the patient 's condition and/or to evalute & treat vital organ system(s) failure or risk of failure. - Discharge Referral Referred to [facility] Med [facility].C.: Yes
[2016-07-21] MEDS: PROPOFOL 100 ML IVPB SCH (20:16)
[2016-07-22] MEDS: PIPERACILLIN/TAZOB 2.25 GM/50 ML PRE-DOCKED BAG IVPB SCH ×4 (02:49→20:23)
[2016-07-22] MEDS: CHLORHEXIDINE GLUCONATE 4% CLEANSER FOR DECOLONIZATION TP SCH ×2 (02:50→22:00)
[2016-07-22] MEDS: FENTANYL INJECTION 500 MCG in DEXTROSE 5%-WATER - 90 ML IJ SCH (02:50)
[2016-07-22] MEDS ORDERED: SODIUM CHLORIDE 500 ML IV STA (05:14)
[2016-07-22 06:16] LABS: BASOPHIL 0.6 % (0-2.0); EOSINOPHIL 4.4 % (0-4.5); MCH 31.5 pg (25.7-33.7); MCHC 32.8 g/dl (32.0-35.9); MEAN PLT VOLUME 8.3 fl (7.5-11.1); NEUTROPHILS 76.9 % (42.8-82.8); PLATELET COUNT 144 K/MM3 (134-434); RDW 14.1 % (11.9-15.9); WHITE BLOOD COUNT 6.9 K/mm3 (4.0-10.0)
[2016-07-22 06:54] LABS: ALBUMIN 1.7 g/dl (3.4-5.0); BILIRUBIN,TOTAL 0.4 mg/dL (0.2-1.0); CREATININE 1.8 mg/dL (0.7-1.3); PHOSPHOROUS 2.9 mg/dL (2.5-4.9); TOT PROT 4.2 g/dl (6.4-8.2)
[2016-07-22 07:02] LABS: CALCIUM 6.6 mg/dL (8.5-10.1)
[2016-07-22 07:34] LABS: ARTERIAL BLD GAS O2 SATURATION 98.3 % (90-98.9); ARTERIAL BLOOD GAS BASE EXCESS -7.4 meq/l (-2-2); ARTERIAL BLOOD GAS HCO3 18.3 meq/L (22-26)
[2016-07-22 07:36] LABS: ALLENS TEST POSITIVE; ART PUNCT SITE RIGHT RADIAL; LPM/O2% 35%; PT. ON O2? YES; TYPE OF O2 MEC.VENT; VENT RATE 16; VT/PRESS 450
[2016-07-22 07:37] LABS: ARTERIAL BLOOD GAS pH 7.28 (7.35-7.45); MECH. VENT. YES
[2016-07-22] MEDS: PROPOFOL 100 ML IVPB SCH (07:42)
[2016-07-22] MEDS: SODIUM CHLORIDE 1,000 ML IV SCH (08:06)
--- NOTE | 2016-07-22 08:25 | PN ---
Progress Note (short form) - Note Progress Note: Surgery- Dr. Shrestha Patient seen and examined. Discussed with nursing. Remains intubated and sedated. Last Vital Signs Temp Pulse Resp BP Pulse Ox 98.2 F 56 L 16 92/51 98 07/22/16 08:00 07/22/16 08:00 07/22/16 08:00 07/22/16 08:00 07/22/16 08:00 CBC, BMP 07/22/16 05:00 07/22/16 05:00 BOOKER output- 220 recorded for yesterday, 80 this morning Denise output- 1850 ml recorded yesterday, 600 today Exam: Gen: NAD, intubated/sedated. ENT: NGT in place, brown drainage Abd: obese, soft, midline incision with retention sutures intact, packing/ dressing changed on rounds, wound clean without drainage or surrounding erythema , BOOKER with serosanguineous drainage in bulb : Denise in place with straw-yellow urine in bag Problem List - Problems (1) Pneumoperitoneum Assessment/Plan: POD#4 s/p Exploratory laparotomy, Orion patch repair of perforated PUD Intubated/sedated NPO, IVF, NGT GI prophylaxis Packing/dressing changed on rounds Continue to monitor BOOKER output Monitor BUN/Cr, improving, monitor urine output IV abx per ID Pain control Cont ICU care per critical care Code(s): K66.8 - OTHER SPECIFIED DISORDERS OF PERITONEUM
[2016-07-22] MEDS ORDERED: PT OWN MED DRAWER 7, Y5N ONE (08:41)
[2016-07-22] MEDS: FLUCONAZOLE 200 MG/D5W 100 ML IVPB SCH (10:24)
[2016-07-22] MEDS: PANTOPRAZOLE SODIUM 100 ML IVPB SCH (10:25)
--- NOTE | 2016-07-22 11:22 | PN ---
<Gita Maldonado - Last Filed: 07/22/16 11:26> Physical Exam: SUBJECTIVE: Patient seen and examined remains intubated. Sedation vacations today. Levophed d/c'd.. Vitals stable. FiO2 decreased to 35%, PEEP 5, CVP 10, urine output > 2L in 24hrs, BOOKER drain 8ml 12hrs. Responds to tactile stimuli today. OBJECTIVE: Vital Signs Period Temp Pulse Resp BP Sys/Navarrete Pulse Ox Last 24 Hr 98.1 F-98.7 F 54-69 14-21 91-116/49-69 94-98 GENERAL: intubated and sedated, responsive to tactile stimuli HEAD: Normal with no signs of trauma. LUNGS: decreased Breath sounds bases HEART: Regular rate and rhythm, S1, S2 without murmur, rub or gallop. ABDOMEN: Soft, obese,open wound dressing clean dry, intact; draining serosanginous fluid. EXTREMITIES: 2+ pulses, warm, well-perfused, minor pedal edema b/l. CBC, BMP 07/22/16 05:00 07/22/16 05:00 Active Medications Generic Name Dose Route Start Last Admin Trade Name Freq PRN Reason Stop Dose Admin Chlorhexidine Gluconate 1 applic 07/18/16 22:00 07/22/16 02:50 Hibiclens For Decolonization - TP 1 applic HS ROWDY Administration Pantoprazole Sodium 100 mls @ 200 mls/hr 07/19/16 10:00 07/22/16 10:25 Protonix 40mg Ivpb (Pre-Docked) IVPB 200 mls/hr DAILY ROWDY Administration Sodium Chloride 1,000 mls @ 100 mls/hr 07/18/16 16:08 07/22/16 08:06 Normal Saline - IV 100 mls/hr ASDIR ROWDY Administration Propofol 100 mls @ 4.082 mls/hr 07/18/16 18:45 07/22/16 09:30 Diprivan - IVPB 0 mcg/kg/min TITR ROWDY Titration Protocol 5 MCG/KG/MIN Norepinephrine Bitartrate 8, 500 mls @ 15.3 mls/hr 07/18/16 21:45 07/21/16 15: 32 000 mcg/ Dextrose IV 0 mcg/kg/min ASDIR ROWDY Titration Protocol 0.03 MCG/KG/MIN Fluconazole 100 mls @ 100 mls/hr 07/20/16 10:00 07/22/16 10:24 Diflucan 200 Mg/D5w Premixed Ivpb - IVPB 100 mls/hr DAILY ROWDY Administration Fentanyl 500 mcg/ Dextrose 100 mls @ 10 mls/hr 07/19/16 12:45 07/22/16 09:30 IJ 0 mcg/hr TITR ROWDY Titration 50 MCG/HR Mupirocin 1 applic 07/18/16 22:00 07/22/16 00:00 Bactroban Ointment (For Decolonization) - NS 07/23/16 21:59 1 applic BID ROWDY Administration Piperacillin Sod/Tazobactam Sod 2.25 gm 07/19/16 09:15 07/22/16 10:22 Zosyn 2.25gm Ivpb (Pre-Docked) IVPB 2.25 gm Q6H-IV ROWDY Administration ASSESSMENT/PLAN: 80 yo male with a PMH HTN , HLD, CAD s/p stents (unknown), admitted for perforated peptic ulcer, s/p exlap with chester patch. Currently intubated and sedated on levophed. 1. Perforated peptic ulcer -POD #5 ex lap with chester patch. -Intubated; ET tube in place according to CXR -sedation vacation, wean trial - NPO, IVF, pain control 2. Septic shock secondary to peritonitis with lactic acidosis: improving -lactic acidosis resolved -off levophed -leukocytosis resolved -await cultures pending; 3 organisms growing : lactobacili and streptococcus -cont zosyn and fluconazole -appreciate ID 3. Acute on chronic kidney injury: improving -most likely due to hypotension -BUN/Cr 32/2.0 yest: 26/1.8 today -Gentle hydration -atrophic left kidney seen on imaging 4. Normocytic anemia: worsening -s/p ex lap; initially most likely from surgery; -H/H dropped today ; 8.7/26.6 -heme occult 5. HTN: -normotensive; -hold all anti hypertensives- 7. CAD s/p stents: -cardiac enzymes negative 8. Hypocalcemia: -Ca correction just slight below normal FEN: Fluids: NS 100mls/hr Electrolytes: hyperkalemia: resolved Diet: NPO DVT prophylaxis: SCDs Disposition: continue management , critical care Problem List - Problems (1) Bowel perforation Code(s): K63.1 - PERFORATION OF INTESTINE (NONTRAUMATIC) (2) Pneumoperitoneum Code(s): K66.8 - OTHER SPECIFIED DISORDERS OF PERITONEUM (3) Sepsis associated hypotension Code(s): A41.9 - SEPSIS, UNSPECIFIED ORGANISM (4) Hypocalcemia Code(s): E83.51 - HYPOCALCEMIA (5) Acute kidney injury Code(s): N17.9 - ACUTE KIDNEY FAILURE, UNSPECIFIED (6) Gout Code(s): M10.9 - GOUT, UNSPECIFIED (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 - New Patient This patient is new to me today: No - Critical Care Critical Care patient: Yes Total Critical Care Time (in minutes): 40 Critical Care Statement: The care of this patient involved high complexity decision making to prevent further life threatening deterioration of the patient 's condition and/or to evalute & treat vital organ system(s) failure or risk of failure. <Yan Bray - Last Filed: 07/22/16 15:50> Physical Exam: ATTENDING PHYSICIAN STATEMENT I saw and evaluated the patient. I reviewed the resident's note and discussed the case with the resident. I agree with the resident's findings and plan as documented. SUBJECTIVE: seen and evaluated at the bedside OBJECTIVE: intubated and sedated; surgical dressing in place; normal bowel sounds ASSESSMENT AND PLAN: 80 yo male with a PMH HTN , HLD, CAD s/p stents (unknown), admitted for septic shock due to perforated peptic ulcer s/p exlap with chester patch. Currently intubated and sedated on levophed. Perforated peptic ulcer with Septic shock secondary to peritonitis -s/p ex lap with chester patch by general surgery -now off levophed -leukocytosis improving - 3 organisms growing in cultures; lactobacili and streptococcus -cont zosyn and fluconazole as per ID attending recs -vent management as per ICU team
--- NOTE | 2016-07-22 11:51 | PN ---
Progress Note, Physician History of Present Illness: Awake on ventilator No acute distress Fever/ leukocytosis improved - Current Medication List Current Medications: Active Medications Chlorhexidine Gluconate (Hibiclens For Decolonization -) 1 applic TP HS ROWDY Last Admin: 07/22/16 02:50 Dose: 1 applic Pantoprazole Sodium (Protonix 40mg Ivpb (Pre-Docked)) 100 mls @ 200 mls/hr IVPB DAILY ROWDY Last Admin: 07/22/16 10:25 Dose: 200 mls/hr Sodium Chloride (Normal Saline -) 1,000 mls @ 100 mls/hr IV ASDIR ROWDY Last Admin: 07/22/16 08:06 Dose: 100 mls/hr Propofol (Diprivan -) 100 mls @ 4.082 mls/hr IVPB TITR ROWDY; 5 MCG/KG/MIN PRN Reason: Protocol Last Titration: 07/22/16 09:30 Dose: 0 mcg/kg/min Norepinephrine Bitartrate 8, (000 mcg/ Dextrose) 500 mls @ 15.3 mls/hr IV ASDIR ROWDY; 0.03 MCG/KG/MIN PRN Reason: Protocol Last Titration: 07/21/16 15:32 Dose: 0 mcg/kg/min Fluconazole (Diflucan 200 Mg/D5w Premixed Ivpb -) 100 mls @ 100 mls/hr IVPB DAILY [facility] Last Admin: 07/22/16 10:24 Dose: 100 mls/hr Fentanyl 500 mcg/ Dextrose 100 mls @ 10 mls/hr IJ TITR ROWDY PRN Reason: 50 MCG/HR Last Titration: 07/22/16 09:30 Dose: 0 mcg/hr Mupirocin (Bactroban Ointment (For Decolonization) -) 1 applic NS BID ROWDY Stop: 07/23/16 21:59 Last Admin: 07/22/16 00:00 Dose: 1 applic Piperacillin Sod/Tazobactam Sod (Zosyn 2.25gm Ivpb (Pre-Docked)) 2.25 gm IVPB Q6H-IV ROWDY Last Admin: 07/22/16 10:22 Dose: 2.25 gm - Objective Vital Signs: Vital Signs Temperature 98.1 F 07/22/16 10:00 Pulse Rate 56 L 07/22/16 10:00 Respiratory Rate 16 07/22/16 10:17 Blood Pressure 116/63 07/22/16 10:00 O2 Sat by Pulse Oximetry (%) 98 07/22/16 08:00 Constitutional: Yes: No Distress, Obese Eyes: Yes: Conjunctiva Clear Cardiovascular: Yes: Regular Rate and Rhythm, S1, S2 Respiratory: Yes: Mechanically Ventilated Gastrointestinal: Yes: Normal Bowel Sounds, Soft, Abdomen, Obese, Other (BOOKER drain serosanguinous fluid). No: Tenderness Edema: Yes Labs: CBC, BMP 07/22/16 05:00 07/22/16 05:00 INR, PTT INR 1.06 (0.82-1.09) 07/18/16 11:00 Assessment/Plan S/p perforated viscus/ peritonitis Sepsis secondary to GI source Respiratory failure Fever/ leukocytosis- improved Azotemia- improved Blood c/s (-) Operative c/s mixed gela Await c/s Continue empiric zosyn/ fluconazole
[2016-07-22] MEDS: MUPIROCIN 2% TOPICAL OINTMENT FOR DECOLONIZATION NS SCH ×2 (12:20)
[2016-07-22] MEDS ORDERED: FUROSEMIDE 40 MG/4 ML INJECTABLE VIAL IVPUSH ONE (12:33)
--- NOTE | 2016-07-22 12:53 | PN ---
Physical Exam: SUBJECTIVE: Patient seen and examined at bedside in ICU. Afebrile overnight & maintaining good blood pressure off pressors. Holding sedation, but still not responsive to commands or his name. OBJECTIVE: Vital Signs Period Temp Pulse Resp BP Sys/Navarrete Pulse Ox Last 24 Hr 98.1 F-98.8 F 56-77 14-21 91-144/49-69 94-99 GENERAL: Intubated but coming off sedation, in no acute distress HEENT:Atraumatic, PERRLA, No lymphadenopathy noted, Moist membranes LUNGS: CTA bilaterally HEART: rrr, s1s2 ABDOMEN: Soft, nontender, nondistended, normoactive bowel sounds; BOOKER with <50 mL serous fluid EXTREMITIES: 2+ pulses, warm, well-perfused, +1 edema upper & lower extremity SKIN: Warm, dry, normal turgor, no rashes or lesions noted Laboratory Results - last 24 hr 07/22/16 07/22/16 07/22/16 05:00 05:00 07:15 WBC 6.9 D RBC 2.77 L Hgb 8.7 L D Hct 26.6 L MCV 96.0 MCHC 32.8 RDW 14.1 Plt Count 144 MPV 8.3 Neutrophils % 76.9 Lymphocytes % 10.3 Monocytes % 7.8 Eosinophils % 4.4 Basophils % 0.6 Puncture Site Right radial ABG pH 7.28 L ABG pCO2 at Pt Temp 40.8 ABG pO2 at Pt Temp 116.0 H ABG HCO3 18.3 L ABG O2 Sat (Measured) 98.3 ABG O2 Content 11.3 L ABG Base Excess -7.4 L Jayy Test Positive O2 Delivery Device Mec.vent Oxygen Flow Rate 35% Vent Mode A/c Vent Rate 16 Mechanical Rate Yes PEEP 5.0 Pressure Support Vent 450 Sodium 141 Potassium 4.5 Chloride 111 H Carbon Dioxide 22 Anion Gap 8 BUN 26 H Creatinine 1.8 H Creat Clearance w eGFR 36.49 Random Glucose 124 H Calcium 6.6 L* Phosphorus 2.9 Magnesium 2.0 Total Bilirubin 0.4 AST 12 L ALT 19 Alkaline Phosphatase 71 D Total Protein 4.2 L Albumin 1.7 L Active Medications Generic Name Dose Route Start Last Admin Trade Name Freq PRN Reason Stop Dose Admin Chlorhexidine Gluconate 1 applic 07/18/16 22:00 07/22/16 02:50 Hibiclens For Decolonization - TP 1 applic HS ROWDY Administration Enoxaparin Sodium 40 mg 07/22/16 12:45 Lovenox - SQ DAILY ROWDY Fentanyl 50 mcg 07/22/16 12:33 Sublimaze Injection - IVPUSH 07/23/16 12:44 Q2H PRN AGITATION Pantoprazole Sodium 100 mls @ 200 mls/hr 07/19/16 10:00 07/22/16 10:25 Protonix 40mg Ivpb (Pre-Docked) IVPB 200 mls/hr DAILY ROWDY Administration Norepinephrine Bitartrate 8, 500 mls @ 15.3 mls/hr 07/18/16 21:45 07/21/16 15: 32 000 mcg/ Dextrose IV 0 mcg/kg/min ASDIR ROWDY Titration Protocol 0.03 MCG/KG/MIN Fluconazole 100 mls @ 100 mls/hr 07/20/16 10:00 07/22/16 10:24 Diflucan 200 Mg/D5w Premixed Ivpb - IVPB 100 mls/hr DAILY ROWDY Administration Mupirocin 1 applic 07/18/16 22:00 07/22/16 12:20 Bactroban Ointment (For Decolonization) - NS 07/23/16 21:59 1 applic BID ROWDY Administration Piperacillin Sod/Tazobactam Sod 2.25 gm 07/19/16 09:15 07/22/16 10:22 Zosyn 2.25gm Ivpb (Pre-Docked) IVPB 2.25 gm Q6H-IV ROWDY Administration ASSESSMENT/PLAN: 80 year old male with PMH of HTN, HLD, CAD s/p stents who was admitted for perforated peptic ulcer. He is POD#3 s/p ex-lap with chester patch. Currently intubated and sedated. #Perforated peptic ulcer -POD#4 s/p exploratory laparotomy, minimal serous output -NPO at present -attempted to wean off sedation today, but patient agitated & hypersecretions; currently still sedated and on mechanical ventilation -pain management w/ fentanyl PRN #Septic Shock, secondary to peritonitis with lactic acidosis -no logner requires pressors -Keep MAP>65 -On Zosyn, Fluconazole until cultures return -awaiting peritoneal fluid culture results #Acute on Chronic Kidney failure -likely secondary to hypotension -Creatinine improving with hydration (1.8 today) -degree of fluid overload, will give Lasix 40mg IVPUSH -continue to trend -avoid nephrotoxic meds #Normocytic Anemia -liekly due to fluid administration -ordered FOBT to r/o bleed Prophylaxis/FEN -Lovenox 40mg daily, PPI -Discontinued IVF, monitor electrolytes, NPO at present Visit type - Emergency Visit Emergency Visit: Yes ED Registration Date: 07/18/16 Care time: The patient presented to the Emergency Department on the above date and was hospitalized for further evaluation of their emergent condition. - New Patient This patient is new to me today: No - Critical Care Critical Care patient: Yes Total Critical Care Time (in minutes): 40 Critical Care Statement: The care of this patient involved high complexity decision making to prevent further life threatening deterioration of the patient 's condition and/or to evalute & treat vital organ system(s) failure or risk of failure.
--- NOTE | 2016-07-22 13:04 | PN ---
Teaching Attending Note Name of Resident: Del Wilhelm ATTENDING PHYSICIAN STATEMENT I saw and evaluated the patient. I reviewed the resident's note and discussed the case with the resident. I agree with the resident's findings and plan as documented. SUBJECTIVE: Pt seen and examined in the ICU. Remains intubated, sedated. No fevers recorded. Off levophed gtt. OBJECTIVE: Last Vital Signs Temp Pulse Resp BP Pulse Ox 98.8 F 74 20 144/64 99 07/22/16 12:00 07/22/16 12:00 07/22/16 12:13 07/22/16 12:00 07/22/16 12:06 Intake & Output 07/19/16 07/20/16 07/21/16 07/22/16 23:59 23:59 23:59 23:59 Intake Total 4906 4466 4090 2312 Output Total 2930 2550 2070 900 Balance 1975 1915 2019 141 Weight 310 lb 3.046 oz 313 lb 7.957 oz 315 lb 4.8 oz 316 lb 5.813 oz Gen: intubated, sedated Heart: RRR Lung: distant breath sounds Abd: soft, obese, +cloudy serous drainage from BOOKER drain Ext: + edema CBC, BMP 07/22/16 05:00 07/22/16 05:00 Active Medications Chlorhexidine Gluconate (Hibiclens For Decolonization -) 1 applic TP HS [facility] Last Admin: 07/22/16 02:50 Dose: 1 applic Enoxaparin Sodium (Lovenox -) 40 mg SQ DAILY [facility] Fentanyl (Sublimaze Injection -) 50 mcg IVPUSH Q2H PRN PRN Reason: AGITATION Stop: 07/23/16 12:44 Pantoprazole Sodium (Protonix 40mg Ivpb (Pre-Docked)) 100 mls @ 200 mls/hr IVPB DAILY [facility] Last Admin: 07/22/16 10:25 Dose: 200 mls/hr Fluconazole (Diflucan 200 Mg/D5w Premixed Ivpb -) 100 mls @ 100 mls/hr IVPB DAILY [facility] Last Admin: 07/22/16 10:24 Dose: 100 mls/hr Mupirocin (Bactroban Ointment (For Decolonization) -) 1 applic NS BID [facility] Stop: 07/23/16 21:59 Last Admin: 07/22/16 12:20 Dose: 1 applic Piperacillin Sod/Tazobactam Sod (Zosyn 2.25gm Ivpb (Pre-Docked)) 2.25 gm IVPB Q6H-IV ROWDY Last Admin: 07/22/16 10:22 Dose: 2.25 gm ASSESSMENT AND PLAN: Perforated Prepyloric Ulcer s/p Ex-lap/Orion patch repair 07/18 Peritonitis Septic Shock resolving Lactic Acidosis resolved Acute Kidney Injury improving Volume Overload CAD HTN Morbid Obesity - continue antibiotics - f/u peritoneal cultures - d/c IVF - monitoring off pressors, maintain MAP >65 - lasix 40mg IVP x 1 - monitor urine output, creatinine - hold sedation to assess mental status - start spontaneous breathing trials when mental status improved - NPO - DVT/GI prophylaxis - continue ICU monitoring
[2016-07-22] MEDS ORDERED: FENTANYL INJECTION 500 MCG in DEXTROSE 5%-WATER - 90 ML IJ SCH (13:45)
[2016-07-22] MEDS ORDERED: PROPOFOL 100 ML IVPB SCH (13:45)
[2016-07-22] MEDS: ENOXAPARIN NA (PORCINE) 40 MG/0.4 ML DISP.SYRIN SQ SCH (13:58)
[2016-07-23] MEDS: PIPERACILLIN/TAZOB 2.25 GM/50 ML PRE-DOCKED BAG IVPB SCH ×4 (02:24→21:27)
[2016-07-23 05:41] LABS: BASOPHIL 0.8 % (0-2.0); EOSINOPHIL 4.5 % (0-4.5); MCH 31.3 pg (25.7-33.7); MCHC 32.8 g/dl (32.0-35.9); MEAN CELL VOLUME 95.3 fl (80-96); NEUTROPHILS 68.5 % (42.8-82.8); PLATELET COUNT 160 K/MM3 (134-434); RDW 14.4 % (11.9-15.9); WHITE BLOOD COUNT 5.7 K/mm3 (4.0-10.0)
[2016-07-23 06:08] LABS: ALBUMIN 1.9 g/dl (3.4-5.0); BILIRUBIN,TOTAL 0.6 mg/dL (0.2-1.0); CALCIUM 7.2 mg/dL (8.5-10.1); CREATININE 1.7 mg/dL (0.7-1.3); MAGNESIUM 1.8 mg/dL (1.8-2.4); PHOSPHOROUS 2.4 mg/dL (2.5-4.9); TOT PROT 4.7 g/dl (6.4-8.2)
--- NOTE | 2016-07-23 07:19 | PN ---
Progress Note, Physician Chief Complaint: ID Intubated post op Zosyn and Fluconazole Low grade fever Off pressors - Current Medication List Current Medications: Active Medications Chlorhexidine Gluconate (Hibiclens For Decolonization -) 1 applic TP HS [facility] Last Admin: 07/22/16 22:00 Dose: 1 applic Enoxaparin Sodium (Lovenox -) 40 mg SQ DAILY [facility] Last Admin: 07/22/16 13:58 Dose: 40 mg Fentanyl (Sublimaze Injection -) 50 mcg IVPUSH Q2H PRN PRN Reason: AGITATION Stop: 07/23/16 12:44 Pantoprazole Sodium (Protonix 40mg Ivpb (Pre-Docked)) 100 mls @ 200 mls/hr IVPB DAILY [facility] Last Admin: 07/22/16 10:25 Dose: 200 mls/hr Fluconazole (Diflucan 200 Mg/D5w Premixed Ivpb -) 100 mls @ 100 mls/hr IVPB DAILY [facility] Last Admin: 07/22/16 10:24 Dose: 100 mls/hr Fentanyl 500 mcg/ Dextrose 100 mls @ 10 mls/hr IJ TITR ROWDY PRN Reason: 50 MCG/HR Last Admin: 07/22/16 13:59 Dose: 10 mls/hr Propofol (Diprivan -) 100 mls @ 17.22 mls/hr IVPB TITR ROWDY; 20 MCG/KG/MIN PRN Reason: Protocol Last Titration: 07/22/16 18:30 Dose: 10 mcg/kg/min Mupirocin (Bactroban Ointment (For Decolonization) -) 1 applic NS BID ROWDY Stop: 07/23/16 21:59 Last Admin: 07/23/16 00:00 Dose: 1 applic Piperacillin Sod/Tazobactam Sod (Zosyn 2.25gm Ivpb (Pre-Docked)) 2.25 gm IVPB Q6H-IV ROWDY Last Admin: 07/23/16 02:24 Dose: 2.25 gm - Objective Vital Signs: Vital Signs Temperature 98.9 F 07/23/16 06:00 Pulse Rate 72 07/23/16 06:00 Respiratory Rate 20 07/23/16 06:20 Blood Pressure 137/64 07/23/16 06:00 O2 Sat by Pulse Oximetry (%) 100 07/22/16 20:13 Constitutional: Yes: Obese Cardiovascular: Yes: Regular Rate and Rhythm, S1, S2 Respiratory: Yes: WNL, Regular, CTA Bilaterally, Rhonchi Gastrointestinal: Yes: Soft, Other (drain Surgical incision) Edema: Yes Labs: CBC, BMP 07/23/16 05:15 07/23/16 05:15 INR, PTT INR 1.06 (0.82-1.09) 07/18/16 11:00 Problem List - Problems (1) Bowel perforation Code(s): K63.1 - PERFORATION OF INTESTINE (NONTRAUMATIC) (2) Sepsis associated hypotension Code(s): A41.9 - SEPSIS, UNSPECIFIED ORGANISM (3) Peritonitis Code(s): K65.9 - PERITONITIS, UNSPECIFIED Assessment/Plan Microbiology 07/19/16 10:30 Urine - Urine Denise Urine Culture - Final NO GROWTH OBTAINED 07/19/16 10:30 Sputum - Endotrachea Suction/Ventilator Gram Stain - Final 07/19/16 10:30 Sputum - Endotrachea Suction/Ventilator Sputum Culture - Final 07/18/16 14:30 Peritoneal Fluid Gram Stain - Final 07/18/16 14:30 Peritoneal Fluid Body Fluid Culture - Preliminary Staphylococcus Coagulase Neg Lactobacillus Species Streptococcus Species 07/18/16 08:00 Blood - Peripheral Venous Blood Culture - Preliminary NO GROWTH OBTAINED AFTER 96 HOURS, INCUBATION TO CONTINUE FOR 1 DAYS. 07/18/16 08:00 Blood - Peripheral Venous Blood Culture - Preliminary NO GROWTH OBTAINED AFTER 96 HOURS, INCUBATION TO CONTINUE FOR 1 DAYS. Laboratory Tests 07/22/16 07/23/16 07/23/16 07:15 05:15 05:15 WBC 5.7 Hgb 9.2 L Hct 28.1 L Plt Count 160 ABG pH 7.28 L ABG pCO2 at Pt Temp 40.8 ABG pO2 at Pt Temp 116.0 H Oxygen Flow Rate 35% BUN 24 H Creatinine 1.7 H Creat Clearance w eGFR 38.97 Assessment Sepsis syndrome multiorgan failure with perforated viscus polymicrobial culture including SCN Plan Stop Fluconazole as no yeast on culture Continue Zosyn as ordered Give Vancomycin for additional gram positive coverage 2 gr dose and check level tomorrow Lewis ANNE
[2016-07-23 08:16] LABS: ARTERIAL BLD GAS O2 SATURATION 98.6 % (90-98.9); ARTERIAL BLOOD GAS BASE EXCESS -4.8 meq/l (-2-2); ARTERIAL BLOOD GAS pH 7.34 (7.35-7.45)
[2016-07-23 08:17] LABS: ALLENS TEST POSITIVE; ART PUNCT SITE LEFT RADIAL; PT. ON O2? YES; TYPE OF O2 MEC.VENT
[2016-07-23 08:18] LABS: VENT RATE 16; VT/PRESS 450
[2016-07-23 08:25] LABS: MECH. VENT. YES
[2016-07-23 08:26] LABS: LPM/O2% 35%
[2016-07-23] MEDS ORDERED: VANCOMYCIN 2,000 MG in DEXTROSE 5%-WATER - 500 ML IVPB ONE (08:30)
--- NOTE | 2016-07-23 08:46 | PN ---
Progress Note (short form) - Note Progress Note: Surgery-Dr. Shrestha Patient seen and examined this morning, still intubated. Last Vital Signs Temp Pulse Resp BP Pulse Ox 98.8 F 70 18 120/60 99 07/23/16 07:00 07/23/16 07:00 07/23/16 07:00 07/23/16 07:00 07/23/16 08:00 CBC, BMP 07/23/16 05:15 07/23/16 05:15 Output: N ml yesterday, 150 today BOOKER: 460 ml yesterday recorded, 75 ml today Denise: 4800ml recorded yesterday, 700 ml today Exam: Gen: Intubated ENT: NGT in place at 65 cm Abd: obese, soft, midline incision with retention sutures intact, inside wound edge with some desiccation-iodoform packing removed and replaced with wet to dry dressing, 4x4 gauze and ABD. No surrounding erythema. BOOKER drain with serosanguineous drainage. : Denise in place with yellow urine in bag Problem List - Problems (1) Pneumoperitoneum Assessment/Plan: POD#5 s/p Exploratory laparotomy, Orion patch repair of perforated PUD NPO, NGT GI prophylaxis Packing/dressing replaced on rounds Monitor BOOKER output Continue IV abx per ID Improving BUN/Cr, good urine output, monitor Pain control DVT prophylaxis Cont ICU care per critical care team Code(s): K66.8 - OTHER SPECIFIED DISORDERS OF PERITONEUM
--- NOTE | 2016-07-23 09:00 | PN ---
<Giat Maldonado - Last Filed: 07/23/16 09:18> Physical Exam: SUBJECTIVE: Patient seen and examined remains intubated. Sedation turned off this am. Titrating down; fentanyl 50 , propofol 10 . Levophed d/c'd.. Vitals stable. FiO2 decreased to 35%, PEEP 5, CVP 9, urine output >700ml in 24hrs, BOOKER drain 75ml 24hrs. Responds to tactile stimuli today. Opens eyes to sternal rub. OBJECTIVE: Vital Signs Period Temp Pulse Resp BP Sys/Navarrete Pulse Ox Last 24 Hr 98.1 F-100.2 F 56-77 15-21 113-144/46-64 95-100 GENERAL: intubated and sedated, responsive to tactile stimuli HEAD: Normal with no signs of trauma. LUNGS: decreased Breath sounds bases HEART: Regular rate and rhythm, S1, S2 without murmur, rub or gallop. ABDOMEN: Soft, obese,open wound dressing clean dry, intact; incision with retention sutures intact, inside wound edge with some desiccation draining serosanginous fluid. EXTREMITIES: 2+ pulses, warm, well-perfused, minor pedal edema b/l. CBC, BMP 07/23/16 05:15 07/23/16 05:15 Active Medications Generic Name Dose Route Start Last Admin Trade Name Freq PRN Reason Stop Dose Admin Chlorhexidine Gluconate 1 applic 07/18/16 22:00 07/22/16 22:00 Hibiclens For Decolonization - TP 1 applic HS ROWDY Administration Enoxaparin Sodium 40 mg 07/22/16 12:45 07/22/16 13:58 Lovenox - SQ 40 mg DAILY ROWDY Administration Fentanyl 50 mcg 07/22/16 12:33 Sublimaze Injection - IVPUSH 07/23/16 12:44 Q2H PRN AGITATION Pantoprazole Sodium 100 mls @ 200 mls/hr 07/19/16 10:00 07/22/16 10:25 Protonix 40mg Ivpb (Pre-Docked) IVPB 200 mls/hr DAILY ROWDY Administration Fentanyl 500 mcg/ Dextrose 100 mls @ 10 mls/hr 07/22/16 13:45 07/23/16 08:57 IJ 0 mcg/hr TITR ROWDY Titration 50 MCG/HR Propofol 100 mls @ 17.22 mls/hr 07/22/16 13:45 07/23/16 07:45 Diprivan - IVPB 0 mcg/kg/min TITR ROWDY Titration Protocol 20 MCG/KG/MIN Vancomycin HCl 2,000 mg/ 500 mls @ 250 mls/hr 07/23/16 08:30 Dextrose IVPB 07/23/16 10:29 ONCE ONE Mupirocin 1 applic 07/18/16 22:00 07/23/16 00:00 Bactroban Ointment (For Decolonization) - NS 07/23/16 21:59 1 applic BID ROWDY Administration Piperacillin Sod/Tazobactam Sod 2.25 gm 07/19/16 09:15 07/23/16 02:24 Zosyn 2.25gm Ivpb (Pre-Docked) IVPB 2.25 gm Q6H-IV ROWDY Administration ASSESSMENT/PLAN: 80 yo male with a PMH HTN , HLD, CAD s/p stents (unknown), admitted for perforated peptic ulcer, s/p exlap with chester patch. Currently intubated and sedated on levophed. 1. Perforated peptic ulcer -POD #6 ex lap with chester patch. -Intubated; ET tube in place according to CXR -sedation off this am; wean trial when more responsive - NPO, IVF, pain control 2. Septic shock secondary to peritonitis with lactic acidosis: improving -lactic acidosis resolved -off levophed -leukocytosis resolved -await cultures pending; 3 organisms growing : lactobacili and streptococcus , staph -cont zosyn and fluconazole -appreciate ID 3. Acute on chronic kidney injury: improving -most likely due to hypotension -BUN/Cr 24/1.7 -Gentle hydration -atrophic left kidney seen on imaging 4. Normocytic anemia: improving -s/p ex lap; initially most likely from surgery; -H/H dropped today ; 8.7/26.6 -heme occult negative 5. HTN: -normotensive; -hold all anti hypertensives- 7. CAD s/p stents: -cardiac enzymes negative 8. Hypocalcemia: resolved -Ca correction FEN: Fluids: NS 100mls/hr Electrolytes: hyperkalemia: resolved Diet: NPO DVT prophylaxis: SCDs Disposition: continue management , critical care Problem List - Problems (1) Bowel perforation Code(s): K63.1 - PERFORATION OF INTESTINE (NONTRAUMATIC) (2) Pneumoperitoneum Code(s): K66.8 - OTHER SPECIFIED DISORDERS OF PERITONEUM (3) Sepsis associated hypotension Code(s): A41.9 - SEPSIS, UNSPECIFIED ORGANISM (4) Hypocalcemia Code(s): E83.51 - HYPOCALCEMIA (5) Acute kidney injury Code(s): N17.9 - ACUTE KIDNEY FAILURE, UNSPECIFIED (6) Gout Code(s): M10.9 - GOUT, UNSPECIFIED (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 - New Patient This patient is new to me today: No - Critical Care Critical Care patient: Yes Total Critical Care Time (in minutes): 40 Critical Care Statement: The care of this patient involved high complexity decision making to prevent further life threatening deterioration of the patient 's condition and/or to evalute & treat vital organ system(s) failure or risk of failure. <Yan Bray - Last Filed: 07/23/16 11:18> Physical Exam: ATTENDING PHYSICIAN STATEMENT I saw and evaluated the patient. I reviewed the resident's note and discussed the case with the resident. I agree with the resident's findings and plan as documented. SUBJECTIVE: seen and evaluated at the bedside OBJECTIVE: intubated and sedated; surgical dressing in place; normal bowel sounds ASSESSMENT AND PLAN: 80 yo male with a PMH HTN , HLD, CAD s/p stents (unknown), admitted for septic shock due to perforated peptic ulcer s/p exlap with chester patch. Currently intubated and sedated on levophed. Perforated peptic ulcer with Septic shock secondary to peritonitis -s/p ex lap with chester patch by general surgery -now off levophed -leukocytosis improving -3 organisms growing in cultures; lactobacili rhodococcus and streptococcus -cont zosyn and fluconazole as per ID attending recs -vent management as per ICU team
[2016-07-23] MEDS: PANTOPRAZOLE SODIUM 100 ML IVPB SCH (09:18)
[2016-07-23] MEDS: MUPIROCIN 2% TOPICAL OINTMENT FOR DECOLONIZATION NS SCH ×2 (09:18)
[2016-07-23] MEDS: ENOXAPARIN NA (PORCINE) 40 MG/0.4 ML DISP.SYRIN SQ SCH (09:18)
[2016-07-23] MEDS ORDERED: FUROSEMIDE 40 MG/4 ML INJECTABLE VIAL IVPUSH ONE (09:54)
--- NOTE | 2016-07-23 11:04 | PN ---
Physical Exam: SUBJECTIVE: Patient seen and examined at bedside. Afebrile overnight & maintaining BP without pressors. Extubated earleir today & on ventimask @40% with good o2 saturation. OBJECTIVE: Vital Signs Period Temp Pulse Resp BP Sys/Navarrete Pulse Ox Last 24 Hr 98.8 F-100.2 F 61-74 15-21 113-144/46-64 95-100 GENERAL: Extubated on ventimask, in no acute distress, oral hypersecretions diminishing HEENT:Atraumatic, PERRLA, No lymphadenopathy noted, Moist membranes LUNGS: CTA bilaterally HEART: rrr, s1s2 ABDOMEN: Soft, nontender, nondistended, normoactive bowel sounds; BOOKER with <50 mL serous fluid EXTREMITIES: 2+ pulses, warm, well-perfused, +1 edema upper & lower extremity SKIN: Warm, dry, normal turgor, no rashes or lesions noted Laboratory Results - last 24 hr 07/22/16 07/23/16 07/23/16 18:00 05:15 05:15 WBC 5.7 RBC 2.95 L Hgb 9.2 L Hct 28.1 L MCV 95.3 MCHC 32.8 RDW 14.4 Plt Count 160 MPV 8.0 Neutrophils % 68.5 Lymphocytes % 13.9 D Monocytes % 12.3 H Eosinophils % 4.5 Basophils % 0.8 Puncture Site ABG pH ABG pCO2 at Pt Temp ABG pO2 at Pt Temp ABG HCO3 ABG O2 Sat (Measured) ABG O2 Content ABG Base Excess Jayy Test O2 Delivery Device Oxygen Flow Rate Vent Mode Vent Rate Mechanical Rate PEEP Pressure Support Vent Sodium 144 Potassium 4.1 Chloride 112 H Carbon Dioxide 22 Anion Gap 10 BUN 24 H Creatinine 1.7 H Creat Clearance w eGFR 38.97 Random Glucose 110 H Calcium 7.2 L Phosphorus 2.4 L Magnesium 1.8 Total Bilirubin 0.6 D AST 15 D ALT 20 Alkaline Phosphatase 84 Total Protein 4.7 L Albumin 1.9 L Stool Occult Blood Negative 07/23/16 07:20 WBC RBC Hgb Hct MCV MCHC RDW Plt Count MPV Neutrophils % Lymphocytes % Monocytes % Eosinophils % Basophils % Puncture Site Left radial ABG pH 7.34 L ABG pCO2 at Pt Temp 38.2 ABG pO2 at Pt Temp 128.0 H ABG HCO3 20.0 L ABG O2 Sat (Measured) 98.6 ABG O2 Content 13.2 L ABG Base Excess -4.8 L Jayy Test Positive O2 Delivery Device Mec.vent Oxygen Flow Rate 35% Vent Mode A/c Vent Rate 16 Mechanical Rate Yes PEEP 5.0 Pressure Support Vent 450 Sodium Potassium Chloride Carbon Dioxide Anion Gap BUN Creatinine Creat Clearance w eGFR Random Glucose Calcium Phosphorus Magnesium Total Bilirubin AST ALT Alkaline Phosphatase Total Protein Albumin Stool Occult Blood Active Medications Generic Name Dose Route Start Last Admin Trade Name Freq PRN Reason Stop Dose Admin Chlorhexidine Gluconate 1 applic 07/18/16 22:00 07/22/16 22:00 Hibiclens For Decolonization - TP 1 applic HS ROWDY Administration Enoxaparin Sodium 40 mg 07/22/16 12:45 07/23/16 09:18 Lovenox - SQ 40 mg DAILY ROWDY Administration Fentanyl 50 mcg 07/22/16 12:33 Sublimaze Injection - IVPUSH 07/23/16 12:44 Q2H PRN AGITATION Pantoprazole Sodium 100 mls @ 200 mls/hr 07/19/16 10:00 07/23/16 09:18 Protonix 40mg Ivpb (Pre-Docked) IVPB 200 mls/hr DAILY ROWDY Administration Fentanyl 500 mcg/ Dextrose 100 mls @ 10 mls/hr 07/22/16 13:45 07/23/16 08:57 IJ 0 mcg/hr TITR ROWDY Titration 50 MCG/HR Propofol 100 mls @ 17.22 mls/hr 07/22/16 13:45 07/23/16 07:45 Diprivan - IVPB 0 mcg/kg/min TITR ROWDY Titration Protocol 20 MCG/KG/MIN Mupirocin 1 applic 07/18/16 22:00 07/23/16 09:18 Bactroban Ointment (For Decolonization) - NS 07/23/16 21:59 1 applic BID ROWDY Administration Piperacillin Sod/Tazobactam Sod 2.25 gm 07/19/16 09:15 07/23/16 09:04 Zosyn 2.25gm Ivpb (Pre-Docked) IVPB 2.25 gm Q6H-IV ROWDY Administration ASSESSMENT/PLAN: 80 year old male with PMH of HTN, HLD, CAD s/p stents who was admitted for perforated peptic ulcer. He is POD#3 s/p ex-lap with chester patch. Currently intubated and sedated. #Perforated peptic ulcer -POD#5 s/p exploratory laparotomy, minimal serous output -NPO at present, as per surgery -extubated today -pain management w/ fentanyl PRN #Septic Shock, secondary to peritonitis with lactic acidosis -no logner on pressors -Keep MAP>65 -On Zosyn, vancomycin, as per ID -awaiting peritoneal fluid culture results #Acute on Chronic Kidney failure -likely secondary to hypotension -Creatinine improving, 1.7 today -will give another 40mg Lasix IVPUSH -continue to trend -avoid nephrotoxic meds #Normocytic Anemia, stable at present -likely due to fluid administration -FOBT (-) for bleed Prophylaxis/FEN -Lovenox 40mg daily, PPI -Discontinued IVF, monitor electrolytes, NPO at present Visit type - Emergency Visit Emergency Visit: Yes ED Registration Date: 07/18/16 Care time: The patient presented to the Emergency Department on the above date and was hospitalized for further evaluation of their emergent condition. - New Patient This patient is new to me today: No - Critical Care Critical Care patient: Yes Total Critical Care Time (in minutes): 40 Critical Care Statement: The care of this patient involved high complexity decision making to prevent further life threatening deterioration of the patient 's condition and/or to evalute & treat vital organ system(s) failure or risk of failure.
--- NOTE | 2016-07-23 11:17 | PN ---
Teaching Attending Note Name of Resident: Del Wilhelm ATTENDING PHYSICIAN STATEMENT I saw and evaluated the patient. I reviewed the resident's note and discussed the case with the resident. I agree with the resident's findings and plan as documented. SUBJECTIVE: Pt seen and examined in the ICU. Remains intubated, more awake. Tolerating CPAP/ PS. Remains off pressors. OBJECTIVE: Last Vital Signs Temp Pulse Resp BP Pulse Ox 98.8 F 70 20 120/60 99 07/23/16 07:00 07/23/16 07:00 07/23/16 09:44 07/23/16 07:00 07/23/16 08:00 Intake & Output 07/20/16 07/21/16 07/22/16 07/23/16 23:59 23:59 23:59 23:59 Intake Total 4466 4090 3582 350 Output Total 2550 2070 5560 985 Balance 1915 Weight 313 lb 7.957 oz 315 lb 4.8 oz 316 lb 5.813 oz 311 lb 4.683 oz Gen: intubated, awake Heart: RRR Lung: distant breath sounds Abd: soft, obese, nontender, +serous drainage Ext: + edema CBC, BMP 07/23/16 05:15 07/23/16 05:15 Active Medications Chlorhexidine Gluconate (Hibiclens For Decolonization -) 1 applic TP HS [facility] Last Admin: 07/22/16 22:00 Dose: 1 applic Enoxaparin Sodium (Lovenox -) 40 mg SQ DAILY [facility] Last Admin: 07/23/16 09:18 Dose: 40 mg Fentanyl (Sublimaze Injection -) 50 mcg IVPUSH Q2H PRN PRN Reason: AGITATION Stop: 07/23/16 12:44 Pantoprazole Sodium (Protonix 40mg Ivpb (Pre-Docked)) 100 mls @ 200 mls/hr IVPB DAILY [facility] Last Admin: 07/23/16 09:18 Dose: 200 mls/hr Fentanyl 500 mcg/ Dextrose 100 mls @ 10 mls/hr IJ TITR ROWDY PRN Reason: 50 MCG/HR Last Titration: 07/23/16 08:57 Dose: 0 mcg/hr Propofol (Diprivan -) 100 mls @ 17.22 mls/hr IVPB TITR ROWDY; 20 MCG/KG/MIN PRN Reason: Protocol Last Titration: 07/23/16 07:45 Dose: 0 mcg/kg/min Mupirocin (Bactroban Ointment (For Decolonization) -) 1 applic NS BID R[facility] Stop: 07/23/16 21:59 Last Admin: 07/23/16 09:18 Dose: 1 applic Piperacillin Sod/Tazobactam Sod (Zosyn 2.25gm Ivpb (Pre-Docked)) 2.25 gm IVPB Q6H-IV [facility] Last Admin: 07/23/16 09:04 Dose: 2.25 gm ASSESSMENT AND PLAN: Perforated Prepyloric Ulcer s/p Ex-lap/Orion patch repair 07/18 Peritonitis Septic Shock resolving Lactic Acidosis resolved Acute Kidney Injury improving Volume Overload CAD HTN Morbid Obesity - wean to extubate - continue antibiotics - f/u peritoneal cultures - monitoring off pressors, maintain MAP >65 - lasix 40mg IVP x 1 today - monitor urine output, creatinine - NPO - DVT/GI prophylaxis - continue ICU monitoring
[2016-07-23] MEDS ORDERED: ACETAMINOPHEN 1000 MG/100 ML VIAL (NON FORMULARY) IVPB ONE (15:28)
[2016-07-23] MEDS: CHLORHEXIDINE GLUCONATE 4% CLEANSER FOR DECOLONIZATION TP SCH (21:28)
[2016-07-24] MEDS: PIPERACILLIN/TAZOB 2.25 GM/50 ML PRE-DOCKED BAG IVPB SCH ×4 (02:30→21:00)
[2016-07-24 05:58] LABS: BASOPHIL 0.6 % (0-2.0); EOSINOPHIL 3.4 % (0-4.5); MCH 31.4 pg (25.7-33.7); MCHC 33.1 g/dl (32.0-35.9); MEAN CELL VOLUME 94.7 fl (80-96); MEAN PLT VOLUME 7.1 fl (7.5-11.1); PLATELET COUNT 191 K/MM3 (134-434); RDW 13.7 % (11.9-15.9); WHITE BLOOD COUNT 4.8 K/mm3 (4.0-10.0)
[2016-07-24 06:32] LABS: BILIRUBIN,TOTAL 0.8 mg/dL (0.2-1.0); CALCIUM 7.6 mg/dL (8.5-10.1); CREATININE 1.7 mg/dL (0.7-1.3); MAGNESIUM 1.9 mg/dL (1.8-2.4); PHOSPHOROUS 2.2 mg/dL (2.5-4.9); TOT PROT 4.9 g/dl (6.4-8.2)
--- NOTE | 2016-07-24 08:03 | PN ---
Progress Note (short form) - Note Progress Note: Surgery- Dr. Shrestha Patient seen and examined this morning. Discussed with nursing. Patient is now extubated, arrousable, minimal verbal responses. Last Vital Signs Temp Pulse Resp BP Pulse Ox 99.9 F H 84 27 H 110/43 100 07/23/16 14:00 07/23/16 16:00 07/23/16 16:00 07/23/16 16:00 07/23/16 20:48 CBC, BMP 07/24/16 05:30 07/24/16 05:30 Output: NGT: 400 ml BOOKER: 50 ml Denise: 700 ml Exam: Gen: NAD, sleeping, arrousable, appears comfortable ENT: NGT in place Abd: obese, soft, appears mildly uncomfortable with palp around midline, midline incision with retention sutures intact, wet to dry dressing changed on rounds, BOOKER drain in place with serosanguineous, mostly serous drainage : Denise catheter in place with yellow urine in bag <Nahomy Ontiveros - Last Filed: 07/24/16 12:57> Problem List - Problems (1) Pneumoperitoneum Assessment/Plan: POD#6 s/p Exploratory laparotomy, Orion patch repair of perforated PUD NGT NPO GI prophylaxis wet to dry packing/dressing replaced on rounds Monitor BOOKER output Continue IV abx per ID Monitor urine output, BUN/cr DVT prophylaxis Pain control Cont ICU care per critical care team Code(s): K66.8 - OTHER SPECIFIED DISORDERS OF PERITONEUM <Nahomy Ontiveros - Last Filed: 07/24/16 12:57> - Problems (1) Perforated peptic ulcer Assessment/Plan: Surgery Attending Patient seen and examined. Agree with general content of GUTIERREZ Ontiveros's note. Possible NGT clamping and eventual removal tomorrow when more alert. Code(s): K27.5 - CHRONIC OR UNSP PEPTIC ULCER, SITE UNSP, WITH PERFORATION <Lior Shrestha - Last Filed: 07/24/16 16:11>
--- NOTE | 2016-07-24 08:26 | PN ---
Progress Note, Physician Chief Complaint: ID Improvement noted Extubated Zosyn and Vancomycin dose 2 grs pending c/s - Current Medication List Current Medications: Active Medications Chlorhexidine Gluconate (Hibiclens For Decolonization -) 1 applic TP HS [facility] Last Admin: 07/23/16 21:28 Dose: 1 applic Enoxaparin Sodium (Lovenox -) 40 mg SQ DAILY [facility] Last Admin: 07/23/16 09:18 Dose: 40 mg Pantoprazole Sodium (Protonix 40mg Ivpb (Pre-Docked)) 100 mls @ 200 mls/hr IVPB DAILY [facility] Last Admin: 07/23/16 09:18 Dose: 200 mls/hr Piperacillin Sod/Tazobactam Sod (Zosyn 2.25gm Ivpb (Pre-Docked)) 2.25 gm IVPB Q6H-IV [facility] Last Admin: 07/24/16 02:30 Dose: 2.25 gm - Objective Vital Signs: Vital Signs Temperature 99.9 F H 07/23/16 14:00 Pulse Rate 84 07/23/16 16:00 Respiratory Rate 27 H 07/23/16 16:00 Blood Pressure 110/43 07/23/16 16:00 O2 Sat by Pulse Oximetry (%) 100 07/23/16 20:48 Constitutional: Yes: Mild Distress, Obese Cardiovascular: Yes: WNL, Regular Rate and Rhythm, S1, S2. No: Bradycardia Respiratory: Yes: WNL, Regular, CTA Bilaterally, Rhonchi Gastrointestinal: Yes: Soft, Other (Drain). No: Tenderness, Tenderness, Rebound Edema: No Labs: CBC, BMP 07/24/16 05:30 07/24/16 05:30 INR, PTT INR 1.06 (0.82-1.09) 07/18/16 11:00 Problem List - Problems (1) Bowel perforation Code(s): K63.1 - PERFORATION OF INTESTINE (NONTRAUMATIC) (2) Sepsis associated hypotension Code(s): A41.9 - SEPSIS, UNSPECIFIED ORGANISM (3) Peritonitis Code(s): K65.9 - PERITONITIS, UNSPECIFIED Assessment/Plan Microbiology 07/19/16 10:30 Urine - Urine Denise Urine Culture - Final NO GROWTH OBTAINED 07/19/16 10:30 Sputum - Endotrachea Suction/Ventilator Gram Stain - Final 07/19/16 10:30 Sputum - Endotrachea Suction/Ventilator Sputum Culture - Final 07/18/16 14:30 Peritoneal Fluid Gram Stain - Final 07/18/16 14:30 Peritoneal Fluid Anaerobic Culture - Final Staphylococcus Coagulase Neg Lactobacillus Species Rhodococcus Equi NO ANAEROBES WERE ISOLATED 07/18/16 08:00 Blood - Peripheral Venous Blood Culture - Final NO GROWTH AFTER 5 DAYS INCUBATION 07/18/16 08:00 Blood - Peripheral Venous Blood Culture - Final NO GROWTH AFTER 5 DAYS INCUBATION Laboratory Tests 07/24/16 07/24/16 05:30 05:30 WBC 4.8 Hgb 9.6 L Hct 28.9 L Plt Count 191 BUN 25 H Creatinine 1.7 H Creat Clearance w eGFR 38.97 Assessment Perforated viscus ( gastric) with surgery Peritonitis polymicrobial with RHODOCOCCUS EQUI ( PORK origin) really unusual pathogen unusually immunocompromised Sepsis syndrome improving OCHOA Plan Continue current antibiotic PIP KAIELE Saucedo MD
[2016-07-24] MEDS: ENOXAPARIN NA (PORCINE) 40 MG/0.4 ML DISP.SYRIN SQ SCH (10:21)
[2016-07-24] MEDS: PANTOPRAZOLE SODIUM 100 ML IVPB SCH (10:21)
--- NOTE | 2016-07-24 10:58 | PN ---
<Gita Maldonado - Last Filed: 07/24/16 11:13> Physical Exam: SUBJECTIVE: Patient seen and examined. Extubated yesterday. Responds to eye opening and command to squeeze finger. Very hard of hearing. Urine output 700ml. DIETER drain 50mls. Vital Signs Temp 100.2 F H 07/24/16 10:11 Pulse 66 07/24/16 10:24 Resp 27 H 07/24/16 10:11 BP 133/90 07/24/16 10:11 Pulse Ox 100 07/24/16 10:24 OBJECTIVE: GENERAL: The patient is awake, alert, non verbal HEAD: Normal with no signs of trauma. ENT: NG tube in place NECK: Trachea midline, full range of motion, supple. LUNGS: Breath sounds equal decreased, HEART: distant hear sounds; Regular rate and rhythm, S1, S2 without murmur ABDOMEN: Soft, tender with palation ; midline incision with retention sutures intact, clean wet to dry dressing, dieter drain intact draining serosanginous fluid rebound, no hepatosplenomegaly, no masses. open EXTREMITIES: 2+ pulses, warm, well-perfuse,b/l non pitting edema. NEUROLOGICAL: awake, not able to fully assess PSYCH: Normal mood, normal affect. SKIN: Warm, dry, normal turgor, no rashes or lesions noted CBC, BMP 07/24/16 05:30 07/24/16 05:30 Active Medications Generic Name Dose Route Start Last Admin Trade Name Freq PRN Reason Stop Dose Admin Chlorhexidine Gluconate 1 applic 07/18/16 22:00 07/23/16 21:28 Hibiclens For Decolonization - TP 1 applic HS [facility] Administration Enoxaparin Sodium 40 mg 07/22/16 12:45 07/24/16 10:21 Lovenox - SQ 40 mg DAILY [facility] Administration Pantoprazole Sodium 100 mls @ 200 mls/hr 07/19/16 10:00 07/24/16 10:21 Protonix 40mg Ivpb (Pre-Docked) IVPB 200 mls/hr DAILY [facility] Administration Piperacillin Sod/Tazobactam Sod 2.25 gm 07/19/16 09:15 07/24/16 10:21 Zosyn 2.25gm Ivpb (Pre-Docked) IVPB 2.25 gm Q6H-IV [facility] Administration ASSESSMENT/PLAN: 80 yo male with a PMH HTN , HLD, CAD s/p stents (unknown), admitted for perforated peptic ulcer, s/p exlap with chester patch. Extubated 07/23. 1. Perforated peptic ulcer -POD #7 ex lap with chester patch. -Extubated 07/23; - NPO, IVF, pain control 2. Septic shock secondary to peritonitis with lactic acidosis: improving -lactic acidosis resolved -off levophed -leukocytosis resolved -await cultures pending; 3 organisms growing : lactobacili and streptococcus , staph -cont zosyn and fluconazole -appreciate ID 3. Acute on chronic kidney injury: improving -most likely due to hypotension from sepsis -BUN/Cr 25/1.7 -Gentle hydration -atrophic left kidney seen on imaging 4. Normocytic anemia: stable -s/p ex lap; initially most likely from surgery; -H/H dropped today ; 9.6/28 -heme occult negative 5. HTN: -normotensive; -hold all anti hypertensives- 7. CAD s/p stents: -cardiac enzymes negative 8. Hypocalcemia: resolved -Ca correction FEN: Fluids: NS 100mls/hr Electrolytes: hyperkalemia: resolved Diet: NPO now; bed sise water swallow eval when appropriate; DVT prophylaxis: SCDs Disposition: continue management , critical care Problem List - Problems (1) Bowel perforation Code(s): K63.1 - PERFORATION OF INTESTINE (NONTRAUMATIC) (2) Pneumoperitoneum Code(s): K66.8 - OTHER SPECIFIED DISORDERS OF PERITONEUM (3) Sepsis associated hypotension Code(s): A41.9 - SEPSIS, UNSPECIFIED ORGANISM (4) Hypocalcemia Code(s): E83.51 - HYPOCALCEMIA (5) Acute kidney injury Code(s): N17.9 - ACUTE KIDNEY FAILURE, UNSPECIFIED (6) Gout Code(s): M10.9 - GOUT, UNSPECIFIED (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 - New Patient This patient is new to me today: No - Critical Care Critical Care patient: Yes Total Critical Care Time (in minutes): 40 Critical Care Statement: The care of this patient involved high complexity decision making to prevent further life threatening deterioration of the patient 's condition and/or to evalute & treat vital organ system(s) failure or risk of failure. <Yan Bray - Last Filed: 07/24/16 19:12> Physical Exam: ATTENDING PHYSICIAN STATEMENT I saw and evaluated the patient. I reviewed the resident's note and discussed the case with the resident. I agree with the resident's findings and plan as documented. SUBJECTIVE: seen and evaluated at the bedside OBJECTIVE: intubated and sedated; surgical dressing in place; normal bowel sounds ASSESSMENT AND PLAN: 80 yo male with a PMH HTN , HLD, CAD s/p stents (unknown), admitted for septic shock due to perforated peptic ulcer s/p exlap with chester patch. Currently intubated and sedated on levophed. Perforated peptic ulcer with Septic shock secondary to peritonitis -s/p ex lap with chester patch by general surgery -now off levophed and extubated 07/24 -leukocytosis improving -3 organisms growing in cultures; lactobacili rhodococcus and streptococcus -cont zosyn and fluconazole as per ID attending recs
--- NOTE | 2016-07-24 11:48 | PN ---
Physical Exam: SUBJECTIVE: Patient seen and examined at bedside in ICU. He was afebrile overnight and maintained BP well without pressors. BOOKER is draining serous fluid but with minimal output at present. More responsive to verbal & tactile stimuli than yesterday. OBJECTIVE: Vital Signs Period Temp Pulse Resp BP Sys/Navarrete Pulse Ox Last 24 Hr 99.9 F-100.2 F 66-88 17-28 100-147/43-90 99-100 GENERAL: On NC O2, in no acute distress, lethargic to responds to tactile stimuli & voice. HEENT:Atraumatic, PERRLA, No lymphadenopathy noted, Moist membranes LUNGS: CTA bilaterally HEART: rrr, s1s2 ABDOMEN: Soft, TTP at surgical site, nondistended, normoactive bowel sounds; BOOKER with <50 mL serous fluid EXTREMITIES: 2+ pulses, warm, well-perfused, +1 edema upper & lower extremity ( improving) SKIN: Warm, dry, normal turgor, no rashes or lesions noted Laboratory Results - last 24 hr 07/24/16 07/24/16 05:30 05:30 WBC 4.8 RBC 3.05 L Hgb 9.6 L Hct 28.9 L MCV 94.7 MCHC 33.1 RDW 13.7 Plt Count 191 MPV 7.1 L D Neutrophils % 71.0 Lymphocytes % 15.6 Monocytes % 9.4 Eosinophils % 3.4 Basophils % 0.6 Sodium 144 Potassium 3.7 Chloride 110 H Carbon Dioxide 24 Anion Gap 10 BUN 25 H Creatinine 1.7 H Creat Clearance w eGFR 38.97 Random Glucose 108 H Calcium 7.6 L Phosphorus 2.2 L Magnesium 1.9 Total Bilirubin 0.8 D AST 33 D ALT 36 D Alkaline Phosphatase 81 Total Protein 4.9 L Albumin 2.0 L Active Medications Generic Name Dose Route Start Last Admin Trade Name Freq PRN Reason Stop Dose Admin Chlorhexidine Gluconate 1 applic 07/18/16 22:00 07/23/16 21:28 Hibiclens For Decolonization - TP 1 applic HS [facility] Administration Enoxaparin Sodium 40 mg 07/22/16 12:45 07/24/16 10:21 Lovenox - SQ 40 mg DAILY [facility] Administration Pantoprazole Sodium 100 mls @ 200 mls/hr 07/19/16 10:00 07/24/16 10:21 Protonix 40mg Ivpb (Pre-Docked) IVPB 200 mls/hr DAILY [facility] Administration Piperacillin Sod/Tazobactam Sod 2.25 gm 07/19/16 09:15 07/24/16 10:21 Zosyn 2.25gm Ivpb (Pre-Docked) IVPB 2.25 gm Q6H-IV [facility] Administration ASSESSMENT/PLAN: 80 year old male with PMH of HTN, HLD, CAD s/p stents who was admitted for perforated peptic ulcer. He is POD#6 s/p ex-lap with chester patch. #Perforated peptic ulcer -POD#6 s/p exploratory laparotomy, minimal serous output -NPO at present, as per surgery -Saturating well on NC O2 -pain management w/ fentanyl PRN #Septic Shock, secondary to peritonitis with lactic acidosis -Keep MAP>65, currently off pressors -On Zosyn, vancomycin, as per ID -peritoneal fluid culture (+) for rhadococcus Equi (from pork) -f/u CXR in AM #Acute on Chronic Kidney failure -likely secondary to hypotension -Creatinine stable at 1.7 -will give another 40mg Lasix IVPUSH -continue to trend -avoid nephrotoxic meds #Normocytic Anemia, stable at present -likely due to fluid administration -FOBT (-) for bleed Prophylaxis/FEN -Lovenox 40mg daily, PPI -Discontinued IVF, monitor electrolytes, NPO at present -ordered PT eval Visit type - Emergency Visit Emergency Visit: Yes ED Registration Date: 07/18/16 Care time: The patient presented to the Emergency Department on the above date and was hospitalized for further evaluation of their emergent condition. - New Patient This patient is new to me today: No - Critical Care Critical Care patient: Yes Total Critical Care Time (in minutes): 50 Critical Care Statement: The care of this patient involved high complexity decision making to prevent further life threatening deterioration of the patient 's condition and/or to evalute & treat vital organ system(s) failure or risk of failure.
--- NOTE | 2016-07-24 12:25 | PN ---
Teaching Attending Note Name of Resident: Del Wilhelm ATTENDING PHYSICIAN STATEMENT I saw and evaluated the patient. I reviewed the resident's note and discussed the case with the resident. I agree with the resident's findings and plan as documented. SUBJECTIVE: Pt seen and examined in the ICU. Remains extubated, intermittently interactive but pt very hard of hearing. Low grade temp this AM. Diuresed well with lasix yesterday. OBJECTIVE: Last Vital Signs Temp Pulse Resp BP Pulse Ox 100.2 F H 66 27 H 133/90 100 07/24/16 10:11 07/24/16 10:24 07/24/16 10:11 07/24/16 10:11 07/24/16 11:34 Intake & Output 07/21/16 07/22/16 07/23/16 07/24/16 23:59 23:59 23:59 23:59 Intake Total 4090 3582 656 110 Output Total 2070 5560 5045 1150 Balance 2019 -1978 -4389 -1040 Weight 315 lb 4.8 oz 316 lb 5.813 oz 311 lb 4.683 oz 297 lb 6.457 oz Gen: breathing nonlabored Heart: RRR Lung: distant breath sounds, no wheezes Abd: soft, nontender, obese, +BOOKER with serous drainage Ext: + edema CBC, BMP 07/24/16 05:30 07/24/16 05:30 Active Medications Chlorhexidine Gluconate (Hibiclens For Decolonization -) 1 applic TP HS [facility] Last Admin: 07/23/16 21:28 Dose: 1 applic Enoxaparin Sodium (Lovenox -) 40 mg SQ DAILY [facility] Last Admin: 07/24/16 10:21 Dose: 40 mg Pantoprazole Sodium (Protonix 40mg Ivpb (Pre-Docked)) 100 mls @ 200 mls/hr IVPB DAILY [facility] Last Admin: 07/24/16 10:21 Dose: 200 mls/hr Piperacillin Sod/Tazobactam Sod (Zosyn 2.25gm Ivpb (Pre-Docked)) 2.25 gm IVPB Q6H-IV [facility] Last Admin: 07/24/16 10:21 Dose: 2.25 gm ASSESSMENT AND PLAN: Perforated Prepyloric Ulcer s/p Ex-lap/Orion patch repair 07/18 s/p Acute Respiratory Failure Peritonitis Septic Shock resolving Lactic Acidosis resolved Acute Kidney Injury improving Volume Overload CAD HTN Morbid Obesity - continue antibiotics - monitoring off pressors, maintain MAP >65 - repeat CXR in AM with daily assessment for lasix - monitor urine output, creatinine - NPO - rehab/PT - DVT/GI prophylaxis - continue ICU monitoring
[2016-07-24] MEDS: CHLORHEXIDINE GLUCONATE 4% CLEANSER FOR DECOLONIZATION TP SCH (22:00)
[2016-07-25] MEDS: PIPERACILLIN/TAZOB 2.25 GM/50 ML PRE-DOCKED BAG IVPB SCH (03:00)
[2016-07-25 06:45] LABS: ALBUMIN 2.1 g/dl (3.4-5.0); CALCIUM 7.6 mg/dL (8.5-10.1); CREATININE 1.5 mg/dL (0.7-1.3); MAGNESIUM 2.2 mg/dL (1.8-2.4); PHOSPHOROUS 2.6 mg/dL (2.5-4.9)
[2016-07-25 06:46] LABS: MCH 31.5 pg (25.7-33.7)
[2016-07-25 06:47] LABS: BILIRUBIN,TOTAL 0.6 mg/dL (0.2-1.0); TOT PROT 5.2 g/dl (6.4-8.2)
[2016-07-25 06:57] LABS: BASOPHIL 0.7 % (0-2.0); MCHC 32.9 g/dl (32.0-35.9); MEAN CELL VOLUME 95.8 fl (80-96); MEAN PLT VOLUME 7.5 fl (7.5-11.1); NEUTROPHILS 66.9 % (42.8-82.8); PLATELET COUNT 207 K/MM3 (134-434); WHITE BLOOD COUNT 4.5 K/mm3 (4.0-10.0)
--- NOTE | 2016-07-25 06:57 | PN ---
Progress Note, Physician Chief Complaint: ID Sluggishly responsive off sedation Still on Zosyn Low grade temps noted - Current Medication List Current Medications: Active Medications Chlorhexidine Gluconate (Hibiclens For Decolonization -) 1 applic TP HS [facility] Last Admin: 07/24/16 22:00 Dose: 1 applic Enoxaparin Sodium (Lovenox -) 40 mg SQ DAILY [facility] Last Admin: 07/24/16 10:21 Dose: 40 mg Pantoprazole Sodium (Protonix 40mg Ivpb (Pre-Docked)) 100 mls @ 200 mls/hr IVPB DAILY [facility] Last Admin: 07/24/16 10:21 Dose: 200 mls/hr Piperacillin Sod/Tazobactam Sod (Zosyn 2.25gm Ivpb (Pre-Docked)) 2.25 gm IVPB Q6H-IV [facility] Last Admin: 07/25/16 03:00 Dose: 2.25 gm - Objective Vital Signs: Vital Signs Temperature 99.1 F 07/24/16 14:00 Pulse Rate 88 07/24/16 14:00 Respiratory Rate 26 H 07/24/16 21:00 Blood Pressure 145/67 07/24/16 14:00 O2 Sat by Pulse Oximetry (%) 100 07/24/16 21:00 Constitutional: Yes: Obese Neck: Yes: WNL, Supple, Other (Central line) Cardiovascular: Yes: Regular Rate and Rhythm, S1, S2 Respiratory: Yes: WNL, Regular, CTA Bilaterally, Diminished Gastrointestinal: Yes: Soft, Other (Drain wit 40cc). No: Tenderness Edema: No Labs: INR, PTT INR 1.06 (0.82-1.09) 07/18/16 11:00 Problem List - Problems (1) Bowel perforation Code(s): K63.1 - PERFORATION OF INTESTINE (NONTRAUMATIC) (2) Sepsis associated hypotension Code(s): A41.9 - SEPSIS, UNSPECIFIED ORGANISM (3) Peritonitis Code(s): K65.9 - PERITONITIS, UNSPECIFIED Assessment/Plan Microbiology 07/19/16 10:30 Urine - Urine Denise Urine Culture - Final NO GROWTH OBTAINED 07/19/16 10:30 Sputum - Endotrachea Suction/Ventilator Gram Stain - Final 07/19/16 10:30 Sputum - Endotrachea Suction/Ventilator Sputum Culture - Final 07/18/16 14:30 Peritoneal Fluid Gram Stain - Final 07/18/16 14:30 Peritoneal Fluid Anaerobic Culture - Final Gram Positive Cocci Lactobacillus Species Rhodococcus Equi NO ANAEROBES WERE ISOLATED 07/18/16 08:00 Blood - Peripheral Venous Blood Culture - Final NO GROWTH AFTER 5 DAYS INCUBATION 07/18/16 08:00 Blood - Peripheral Venous Blood Culture - Final NO GROWTH AFTER 5 DAYS INCUBATION Laboratory Tests 07/24/16 07/24/16 05:30 05:30 WBC 4.8 Hgb 9.6 L Hct 28.9 L Plt Count 191 BUN 25 H Creatinine 1.7 H Assessment Sepsis syndrome resolved now day 7 post op Peritonitis with Rhodococcus Low grade fevers Drug of choice for Rhodococcus would be combination therapy Carpepenem and vanco. Now day 7 therapy with marked clinical improvement on Zosyn. Plan Inclined to STOP antibiotic at this point and observe Still appears sedated NOt out of bed yet but gets PT. Reculture in 24-48 hours if fevers persist Mindful of central line risk of infection Lewis ANNE
--- NOTE | 2016-07-25 07:06 | PN ---
Progress Note (short form) - Note Progress Note: POD #6 s/p POD#6 s/p Ex-lap, Orion patch repair of perforated PUD No acute events per RN notes. Extubated and breathing on his own. Patient is very ZUNI. Last Vital Signs Temp Pulse Resp BP Pulse Ox 99.1 F 88 26 H 145/67 100 07/24/16 14:00 07/24/16 14:00 07/24/16 21:00 07/24/16 14:00 07/24/16 21:00 CBC, BMP 07/25/16 05:35 07/25/16 05:35 Output 07/24/16 07/24/16 07/25/16 04:54 15:00 05:16 BOOKER 50 40 40 NGT 400 200 PE: Gen: NAD, sleeping yet arrousable, appears comfortable ENT: NGT Abd: obese, soft, appears mildly uncomfortable with palp around midline ( incision w/ retention sutures intact), wet to dry dressing changed on rounds, BOOKER (serous) UE/LE: edematous b/l. warm. : Denise to gravity <Carlos Boo P - Last Filed: 07/25/16 07:14> - Note Progress Note: Surgery Attending POD #7 Reviewed GUTIERREZ Boo's progress notes. Agree with assessment and plan of management. Had BM today. Agree with starting liquid diet. <Lior Shrestha - Last Filed: 07/25/16 18:38> Problem List - Problems (1) S/P exploratory laparotomy Assessment/Plan: Cont NPO/IVF GI/DVT PPX Wet to dry packing/dressing replaced on rounds IV abx per ID NGT & BOOKER dc'd on rounds. Monitor UOP --> BUN/cr Pain control Cont ICU care per critical care team Code(s): Z98.89 - OTHER SPECIFIED POSTPROCEDURAL STATES * DO NOT USE * (2) Pneumoperitoneum Code(s): K66.8 - OTHER SPECIFIED DISORDERS OF PERITONEUM <Carlos Boo - Last Filed: 07/25/16 07:14> - Problems (1) Perforated peptic ulcer Code(s): K27.5 - CHRONIC OR UNSP PEPTIC ULCER, SITE UNSP, WITH PERFORATION <Lior Shrestha - Last Filed: 07/25/16 18:38>
[2016-07-25] MEDS: PANTOPRAZOLE SODIUM 100 ML IVPB SCH (09:02)
[2016-07-25] MEDS: ENOXAPARIN NA (PORCINE) 40 MG/0.4 ML DISP.SYRIN SQ SCH (09:02)
[2016-07-25] MEDS ORDERED: FUROSEMIDE 40 MG/4 ML INJECTABLE VIAL IVPUSH ONE (10:40)
--- NOTE | 2016-07-25 12:26 | PN ---
Teaching Attending Note Name of Resident: Gita aMldonado ATTENDING PHYSICIAN STATEMENT I saw and evaluated the patient. I reviewed the resident's note and discussed the case with the resident. I agree with the resident's findings and plan as documented. SUBJECTIVE: seen and evaluated at the bedside OBJECTIVE: intubated and sedated; surgical dressing in place; normal bowel sounds ASSESSMENT AND PLAN: 80 yo male with a PMH HTN , HLD, CAD s/p stents (unknown), admitted for septic shock due to perforated peptic ulcer s/p exlap with chester patch. Currently intubated and sedated on levophed. Perforated peptic ulcer with Septic shock secondary to peritonitis -s/p ex lap with chester patch by general surgery -now off levophed and extubated 07/24 -leukocytosis improving -3 organisms growing in cultures; lactobacili rhodococcus and streptococcus -now off zosyn as per ID attending recs -trend fever curve
--- NOTE | 2016-07-25 12:56 | PN ---
Addendum entered and electronically signed by Del Wilhelm RES 07/25/16 15:44: Discussed case with Jessica Liz. Agree with her assessment that patient is an aspiration risk and is not ready for PO intake. Will keep NPO overnight and defer to surgeon's assessment in AM. Original Note: Physical Exam: SUBJECTIVE: Patient seen and examined at bedside in ICU. Much more responsive today than yesterday. Afebrile overnight & sitting comfortably in bed. Children at bedside. OBJECTIVE: Vital Signs Period Temp Pulse Resp BP Sys/Navarrete Pulse Ox Last 24 Hr 99.1 F-99.2 F 68-88 22-26 130-145/65-68 100-100 GENERAL: On NC O2, in no acute distress, responsive to tactile & verbal stimuli ; poor hearing (baseline) HEENT:Atraumatic, PERRLA, No lymphadenopathy noted, Moist membranes LUNGS: CTA bilaterally HEART: rrr, s1s2 ABDOMEN: Soft, TTP at surgical site, nondistended, normoactive bowel sounds; BOOKER with <50 mL serous fluid EXTREMITIES: 2+ pulses, warm, well-perfused, +1 edema upper & lower extremity ( improving) SKIN: Warm, dry, normal turgor, no rashes or lesions noted Laboratory Results - last 24 hr 07/25/16 07/25/16 07/25/16 05:35 05:35 05:35 WBC 4.5 RBC 3.13 L Hgb 9.9 L Hct 30.0 L MCV 95.8 MCHC 32.9 RDW 14.0 Plt Count 207 MPV 7.5 Neutrophils % 66.9 Lymphocytes % 17.4 Monocytes % 10.0 Eosinophils % 5.0 H Basophils % 0.7 Sodium 149 H Potassium 4.0 Chloride 116 H Carbon Dioxide 25 Anion Gap 8 BUN 26 H Creatinine 1.5 H Creat Clearance w eGFR 45.03 Random Glucose 103 Lactic Acid 0.665 Calcium 7.6 L Phosphorus 2.6 Magnesium 2.2 Total Bilirubin 0.6 D AST 41 H D ALT 49 D Alkaline Phosphatase 82 Total Protein 5.2 L Albumin 2.1 L Active Medications Generic Name Dose Route Start Last Admin Trade Name Freq PRN Reason Stop Dose Admin Chlorhexidine Gluconate 1 applic 07/18/16 22:00 07/24/16 22:00 Hibiclens For Decolonization - TP 1 applic HS ROWDY Administration Enoxaparin Sodium 40 mg 07/22/16 12:45 07/25/16 09:02 Lovenox - SQ 40 mg DAILY ROWDY Administration Pantoprazole Sodium 100 mls @ 200 mls/hr 07/19/16 10:00 07/25/16 09:02 Protonix 40mg Ivpb (Pre-Docked) IVPB 200 mls/hr DAILY ROWDY Administration ASSESSMENT/PLAN: 80 year old male with PMH of HTN, HLD, CAD s/p stents who was admitted for perforated peptic ulcer. He is POD#7 s/p ex-lap with chester patch. #Perforated peptic ulcer -POD#7 s/p exploratory laparotomy, minimal serous output -Clear liquid diet started, as per discussion with surgery -Saturating well on NC O2 #Septic Shock, secondary to peritonitis with lactic acidosis -stable BP off pressors -finished course of Vancomycin/Zosyn today (received 7 days total) -peritoneal fluid culture (+) for rhadococcus Equi (from pork) #Acute on Chronic Kidney failure -likely secondary to hypotension -Creatinine stable at 1.5 -will give another 40mg Lasix IVPUSH -continue to trend -avoid nephrotoxic meds #Normocytic Anemia, stable at present -likely due to fluid administration -FOBT (-) for bleed Prophylaxis/FEN -Lovenox 40mg daily, PPI -Discontinued IVF, monitor electrolytes, Clear liquid diet -PT Ongoing Visit type - Emergency Visit Emergency Visit: Yes ED Registration Date: 07/18/16 Care time: The patient presented to the Emergency Department on the above date and was hospitalized for further evaluation of their emergent condition. - New Patient This patient is new to me today: No - Critical Care Critical Care patient: Yes Total Critical Care Time (in minutes): 40 Critical Care Statement: The care of this patient involved high complexity decision making to prevent further life threatening deterioration of the patient 's condition and/or to evalute & treat vital organ system(s) failure or risk of failure.
--- NOTE | 2016-07-25 13:02 | PN ---
Teaching Attending Note Name of Resident: Del Wilhelm ATTENDING PHYSICIAN STATEMENT I saw and evaluated the patient. I reviewed the resident's note and discussed the case with the resident. I agree with the resident's findings and plan as documented. SUBJECTIVE: Patient seen and examined in the ICU. Remains extubated, intermittently interactive but pt very hard of hearing. Afebrile. Remains NPO. NGT was removed. Intake & Output 07/22/16 07/23/16 07/24/16 07/25/16 23:59 23:59 23:59 23:59 Intake Total 3582 656 310 50 Output Total 5560 5045 2790 740 Balance -1978 -4389 -2480 -690 Weight 316 lb 5.813 oz 311 lb 4.683 oz 297 lb 6.457 oz 296 lb 4.82 oz Last Vital Signs Temp Pulse Resp BP Pulse Ox 99.2 F 68 22 143/68 100 07/25/16 11:18 07/25/16 11:18 07/25/16 11:18 07/25/16 11:18 07/25/16 09:00 Active Medications Chlorhexidine Gluconate (Hibiclens For Decolonization -) 1 applic TP HS [facility] Last Admin: 07/24/16 22:00 Dose: 1 applic Enoxaparin Sodium (Lovenox -) 40 mg SQ DAILY [facility] Last Admin: 07/25/16 09:02 Dose: 40 mg Pantoprazole Sodium (Protonix 40mg Ivpb (Pre-Docked)) 100 mls @ 200 mls/hr IVPB DAILY [facility] Last Admin: 07/25/16 09:02 Dose: 200 mls/hr Gen: Awake, breathing nonlabored Heart: RRR Lung: distant breath sounds, no wheezes Abd: soft, nontender, obese, +BOOKER with serous drainage Ext: + edema Laboratory Results - last 24 hr 07/25/16 07/25/16 07/25/16 05:35 05:35 05:35 WBC 4.5 RBC 3.13 L Hgb 9.9 L Hct 30.0 L MCV 95.8 MCHC 32.9 RDW 14.0 Plt Count 207 MPV 7.5 Neutrophils % 66.9 Lymphocytes % 17.4 Monocytes % 10.0 Eosinophils % 5.0 H Basophils % 0.7 Sodium 149 H Potassium 4.0 Chloride 116 H Carbon Dioxide 25 Anion Gap 8 BUN 26 H Creatinine 1.5 H Creat Clearance w eGFR 45.03 Random Glucose 103 Lactic Acid 0.665 Calcium 7.6 L Phosphorus 2.6 Magnesium 2.2 Total Bilirubin 0.6 D AST 41 H D ALT 49 D Alkaline Phosphatase 82 Total Protein 5.2 L Albumin 2.1 L ASSESSMENT AND PLAN: Perforated Prepyloric Ulcer s/p Ex-lap/Oiron patch repair 07/18 s/p Acute Respiratory Failure Peritonitis Septic Shock resolving Lactic Acidosis resolved Acute Kidney Injury improving Volume Overload CAD HTN Morbid Obesity - ABX per ID - monitoring off pressors, maintain MAP >65 - Daily assessment for lasix - monitor urine output, creatinine - Will D/W surgery starting PO intake - rehab/PT - DVT/GI prophylaxis - Telemetry monitoring Dr Daniels CCTime 35" Problem List - Problems (1) Bowel perforation Code(s): K63.1 - PERFORATION OF INTESTINE (NONTRAUMATIC) (2) Pneumoperitoneum Code(s): K66.8 - OTHER SPECIFIED DISORDERS OF PERITONEUM
--- NOTE | 2016-07-25 13:05 | PN ---
Physical Exam: SUBJECTIVE: Patient seen and examined, more alert today. Patient was responding to name, and commands. Not completely verbal at this time. Extubated 07/23, off, levo. O2 sat on NC 100. OBJECTIVE: Vital Signs Period Temp Pulse Resp BP Sys/Navarrete Pulse Ox Last 24 Hr 99.1 F-99.2 F 68-88 22-26 130-145/65-68 100-100 GENERAL: The patient is awake, alert, and oriented to person and time, in no acute distress. HEAD: Normal with no signs of trauma. EYES: PERRL, extraocular movements intact, sclera anicteric, conjunctiva clear. No ptosis. ENT: swollen upper lip LUNGS: Breath sounds equal, some coarseness HEART: Regular rate and rhythm, S1, S2 without murmur, rub or gallop. ABDOMEN: Soft, tender, obese, normoactive bowel sounds, longitudinal excision mid abdomen, open with retention sutures, clean dry intact with packed dressing , dieter drain serosangious fluid minimal EXTREMITIES: 2+ pulses, warm, well-perfused, no edema. NEUROLOGICAL: AAO x 2; not oriented to place; speech inhibited PSYCH: Normal mood, normal affect. SKIN: Warm, dry, normal turgor, no rashes or lesions noted CBC, BMP 07/25/16 05:35 07/25/16 05:35 Active Medications Generic Name Dose Route Start Last Admin Trade Name Fermínq PRN Reason Stop Dose Admin Chlorhexidine Gluconate 1 applic 07/18/16 22:00 07/24/16 22:00 Hibiclens For Decolonization - TP 1 applic HS ROWDY Administration Enoxaparin Sodium 40 mg 07/22/16 12:45 07/25/16 09:02 Lovenox - SQ 40 mg DAILY ROWDY Administration Pantoprazole Sodium 100 mls @ 200 mls/hr 07/19/16 10:00 07/25/16 09:02 Protonix 40mg Ivpb (Pre-Docked) IVPB 200 mls/hr DAILY ROWDY Administration ASSESSMENT/PLAN: 80 yo male with a PMH HTN , HLD, CAD s/p stents (unknown), admitted for perforated peptic ulcer, s/p exlap with chester patch. Extubated 07/23. trend low grade fever x 2days. plan below. 1. Perforated peptic ulcer -POD #8 ex lap with chester patch. -Extubated 2/15; - NPO, pain control, wound care -protonix 40mg IVBP daily 2. Septic shock secondary to peritonitis with lactic acidosis: resolved -low grade fever; off zosyn, completed 7 days; if fever persists and leukocyte count rises, then we can treat the rhododcoccus with vanco/cefipime -3 organisms growing : lactobacili and streptococcus, rhodoccoccus -appreciate ID 3. Acute on chronic kidney injury: improving -most likely due to hypotension from sepsis -BUN/Cr 26/1.5 -atrophic left kidney seen on imaging 4. Normocytic anemia: stable -s/p ex lap; initially most likely from surgery; -H/H dropped today ; 9.9.20 -heme occult negative 5. HTN: -normotensive; -hold all anti hypertensives- 6. CAD s/p stents: -cardiac enzymes negative 7. Hypocalcemia: resolved -Ca correction FEN: Fluids: Electrolytes: hyperkalemia: resolved Diet: NPO now; bedside water swallow eval when appropriate; DVT prophylaxis: lovenox Disposition: continue management , stable to transfer to floors Problem List - Problems (1) Bowel perforation Code(s): K63.1 - PERFORATION OF INTESTINE (NONTRAUMATIC) (2) Pneumoperitoneum Code(s): K66.8 - OTHER SPECIFIED DISORDERS OF PERITONEUM (3) Sepsis associated hypotension Code(s): A41.9 - SEPSIS, UNSPECIFIED ORGANISM (4) Hypocalcemia Code(s): E83.51 - HYPOCALCEMIA (5) Acute kidney injury Code(s): N17.9 - ACUTE KIDNEY FAILURE, UNSPECIFIED (6) Gout Code(s): M10.9 - GOUT, UNSPECIFIED (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 - New Patient This patient is new to me today: No - Critical Care Critical Care patient: Yes Total Critical Care Time (in minutes): 40 Critical Care Statement: The care of this patient involved high complexity decision making to prevent further life threatening deterioration of the patient 's condition and/or to evalute & treat vital organ system(s) failure or risk of failure.
--- NOTE | 2016-07-25 15:31 | CONSULT ---
Admitting History and Physical - Primary Care Physician PCP: Yan Bray - Admission History of Present Illness: Per EMR: C"[facility] Complaint: abdominal pain History of Present Illness: 80 M, HTN, HLD, CAD, and multiple stent placement. Admitted via the ER due to nausea and RUQ abdominal pain. Apparently he takes a lot of Advil/NSAIDS. On imaging found to have a pneumoperitoneum. Take to the OR and found to have a perforated hollow viscus. Now S/P Exploratory laparotomy, Orion patch and repair of perforated PUD" Pt was intubated and sedated.Extubated by staff on 07/23. No longer sedated. History Source: Medical Record Limitations to Obtaining History: Clinical Condition - Past Medical History Cardiovascular: Yes: CAD Musculoskeletal: Yes: Osteoarthritis - Smoking History Smoking history: Former smoker Have you smoked in the past 12 months: No Aproximately how many cigarettes per day: 0 - Alcohol/Substance Use Hx Alcohol Use: No History - Admission Reason For Visit: PERFORATION OF INTESTINE - Diagnostics X-ray: Report Reviewed - General Mental Status: Confused, Lethargic Attention: Distractible Ability to Follow Directions: Poor Head/Neck Control: Poor - Hearing Hearing: Normal Hearing Aide: No With Patient: No Speech Evaluation - Communication Primary Language: [place] Communication: Yes: Non-Communicable - Speech Production Able to Make Needs Known: Yes: Severely Impaired Intelligibility: Yes: Severely Impaired - Speech Characteristics Voice Loudness: Moderately Soft/Quiet Voice Phonatory-based Quality: Yes: Dysphonia Speech Pattern: Impaired Speech Clarity: < 25% Nasal Resonance: Hypernasal Articulation: Yes: Imprecise - Language/Verbal Expression Able to Respond to Simple Queries: Yes: Severely Impaired Able to Communicate Wants and Needs: Yes: Severely Impaired Functional Communication Status: Yes: Severely Impaired - Swallow Evaluation/Bedside Assessment Current Nutritional Intake: NPO, Clear Liquids (per surgery) Recommendations - Speech Evaluation, Impression/Plan Impression: Poor head support. Lethargy with occasional unintelligible speech.Occasional cough, likely on saliva. - Dysphagia Impressions/Plan Swallowing Skills: Impaired Dysphagia Impressions: Risk of Aspiration *Silent aspiration: cannot be R/O at bedside Recommendations: Other (To reassess as pt becomes more alert and verbal.) - Recommendations Diet Consistency: NPO (including medication.)
[2016-07-25] MEDS ORDERED: MULTIVIT INJECTION ADULT 10 ML in AMINO ACIDS 4.25%/D5W 1,000 ML IV ONE (16:00)
[2016-07-26] MEDS: CHLORHEXIDINE GLUCONATE 4% CLEANSER FOR DECOLONIZATION TP SCH ×2 (06:04→21:55)
[2016-07-26 07:02] LABS: BASOPHIL 0.9 % (0-2.0); MCH 31.4 pg (25.7-33.7); MCHC 32.9 g/dl (32.0-35.9); MEAN CELL VOLUME 95.4 fl (80-96); MEAN PLT VOLUME 7.2 fl (7.5-11.1); NEUTROPHILS 61.4 % (42.8-82.8); PLATELET COUNT 225 K/MM3 (134-434); RDW 13.8 % (11.9-15.9); WHITE BLOOD COUNT 4.4 K/mm3 (4.0-10.0)
[2016-07-26 07:24] LABS: ALBUMIN 2.3 g/dl (3.4-5.0)
[2016-07-26 07:27] LABS: BILIRUBIN,TOTAL 0.5 mg/dL (0.2-1.0); CREATININE 1.7 mg/dL (0.7-1.3); TOT PROT 5.7 g/dl (6.4-8.2)
[2016-07-26] MEDS: DEXTROSE 5%-WATER - 1,000 ML IV SCH ×3 (09:25→20:46)
[2016-07-26] MEDS: PANTOPRAZOLE SODIUM 100 ML IVPB SCH (09:32)
[2016-07-26] MEDS: ENOXAPARIN NA (PORCINE) 40 MG/0.4 ML DISP.SYRIN SQ SCH (09:33)
--- NOTE | 2016-07-26 10:35 | PN ---
Progress Note (short form) - Note Progress Note: PULMONARY REMAINS EXTUBATED/AFEBRILE /BP 142/50 N/C O2/DOUGLASS/SCD'S/NO NGT ANICTERIC DISTANT B/L ANTERIOR BREATH SOUNDS S1S2 RSR DISTENDED /SOFT/ J-P DRAIN IN PLACE B/L SCD'S LABS/MEDS/NOTES/MICRO/IMAGING REVIEWED ASSESSMENT AND PLAN: Perforated Prepyloric Ulcer s/p Ex-lap/Orion patch repair 07/18 s/p Acute Respiratory Failure Peritonitis Septic Shock resolving Lactic Acidosis resolved Acute Kidney Injury improving Volume Overload CAD HTN Morbid Obesity - ABX per ID - maintain MAP >65 - Daily assessment for lasix - monitor urine output, creatinine - rehab/PT - DVT/GI prophylaxis - Telemetry monitoring Allie SOLORIO MD
--- NOTE | 2016-07-26 11:00 | PN ---
Progress Note (short form) - Note Progress Note: NAD trying to communicate difficult to understand him Vital Signs Period Temp Pulse Resp BP Sys/Navarrete Pulse Ox Last 24 Hr 98 F-99.2 F 63-77 18-22 128-152/50-86 97-97 cor-rrr lungs decreased bs at bases abd soft, retention sutures intact ext +edema +wu CBC, BMP 07/26/16 06:00 07/26/16 06:00 Microbiology 07/18/16 14:30 Peritoneal Fluid Gram Stain - Final 07/18/16 14:30 Peritoneal Fluid Body Fluid Culture - Final Gram Positive Cocci Lactobacillus Species Rhodococcus Equi 07/18/16 14:30 Peritoneal Fluid Anaerobic Culture - Final NO ANAEROBES WERE ISOLATED 07/18/16 08:00 Blood - Peripheral Venous Blood Culture - Final NO GROWTH AFTER 5 DAYS INCUBATION 07/18/16 08:00 Blood - Peripheral Venous Blood Culture - Final NO GROWTH AFTER 5 DAYS INCUBATION 07/19/16 10:30 Sputum - Endotrachea Suction/Ventilator Gram Stain - Final 07/19/16 10:30 Sputum - Endotrachea Suction/Ventilator Sputum Culture - Final 07/19/16 10:30 Urine - Urine Wu Urine Culture - Final NO GROWTH OBTAINED a/p sepsis syndrome s/p expl lap 07/18 for perforated peptic ulcer antibiotics d/sourav yesterday will observe
[2016-07-26] MEDS ORDERED: ACETAMINOPHEN 650 MG SUPP.RECT PR PRN (12:04)
--- NOTE | 2016-07-26 12:39 | PN ---
Progress Note, Physician - Current Medication List Current Medications: Active Medications Acetaminophen (Tylenol Suppository -) 650 mg MS Q6H PRN PRN Reason: FEVER OR PAIN Chlorhexidine Gluconate (Hibiclens For Decolonization -) 1 applic TP HS [facility] Last Admin: 07/26/16 06:04 Dose: Not Given Enoxaparin Sodium (Lovenox -) 40 mg SQ DAILY [facility] Last Admin: 07/26/16 09:33 Dose: 40 mg Pantoprazole Sodium (Protonix 40mg Ivpb (Pre-Docked)) 100 mls @ 200 mls/hr IVPB DAILY [facility] Last Admin: 07/26/16 09:32 Dose: 200 mls/hr Dextrose (D5w -) 1,000 mls @ 100 mls/hr IV Q10H [facility] Last Admin: 07/26/16 09:25 Dose: 100 mls/hr - Objective Vital Signs: Vital Signs Temperature 100.8 F H 07/26/16 11:00 Pulse Rate 76 07/26/16 09:56 Respiratory Rate 18 07/26/16 09:56 Blood Pressure 142/50 07/26/16 09:56 O2 Sat by Pulse Oximetry (%) 97 07/25/16 22:00 Constitutional: Yes: Well Nourished, No Distress, Calm Eyes: Yes: WNL, Conjunctiva Clear HENT: Yes: WNL, Atraumatic, Normocephalic Neck: Yes: WNL, Supple, Trachea Midline Cardiovascular: Yes: WNL, Regular Rate and Rhythm Respiratory: Yes: WNL, Regular, CTA Bilaterally Gastrointestinal: Yes: Normal Bowel Sounds, Soft, Other (surgical dressing in place) Musculoskeletal: Yes: WNL Extremities: Yes: WNL Edema: No Integumentary: Yes: WNL Neurological: Yes: WNL, Alert. No: Oriented ...Motor Strength: WNL Psychiatric: Yes: WNL Labs: CBC, BMP 07/26/16 06:00 07/26/16 06:00 INR, PTT INR 1.06 (0.82-1.09) 07/18/16 11:00 Impression/Plan Impression/Plan: 80 yo male with a PMH HTN , HLD, CAD s/p stents (unknown), admitted for septic shock due to perforated peptic ulcer s/p exlap with chester patch. Currently intubated and sedated on levophed. Perforated peptic ulcer with Septic shock secondary to peritonitis -s/p ex lap with chester patch by general surgery -now off levophed and extubated 07/24 -leukocytosis improving -3 organisms growing in cultures; lactobacili rhodococcus and streptococcus -now off zosyn as per ID attending recs -had low grade fever; repeat blood/urine cultures Hypernatremia -due to dehydration given that bun/creat is also elevated -stop clinamix at this time -start D5 water and trend sodium Dysmetria -has garbled speech today likely due to lethargy; no focal defecits on evaluation -NPO at this time -follow up swallow eval Visit type - Emergency Visit Emergency Visit: Yes ED Registration Date: 07/18/16 Care time: The patient presented to the Emergency Department on the above date and was hospitalized for further evaluation of their emergent condition. - New Patient This patient is new to me today: No - Critical Care Critical Care patient: No
[2016-07-27 07:09] LABS: BASOPHIL 0.8 % (0-2.0); EOSINOPHIL 8.2 % (0-4.5); MCH 31.3 pg (25.7-33.7); MCHC 32.6 g/dl (32.0-35.9); MEAN CELL VOLUME 96.1 fl (80-96); MEAN PLT VOLUME 7.4 fl (7.5-11.1); NEUTROPHILS 61.8 % (42.8-82.8); PLATELET COUNT 220 K/MM3 (134-434); RDW 13.9 % (11.9-15.9); WHITE BLOOD COUNT 4.1 K/mm3 (4.0-10.0)
--- NOTE | 2016-07-27 07:47 | PN ---
Progress Note (short form) - Note Progress Note: Pt made npo yesterday, he was lethargic was seen by nutrition on the and it was recommended to make the pt NPO even medications. There is a risk for aspiration. Vital Signs Period Temp Pulse Resp BP Sys/Navarrete Pulse Ox Last 24 Hr 97.6 F-100.8 F 69-103 18-20 99-157/50-85 96 uop-1075 ml PE: GEN: pt responds, will blink his eyes when asked. CV: RRR Lungs: CTA b/l, anteriorly ABD: soft, non-distended, inc with retention sutures in place. No exudate with changing of packing. replaced dressing with wet to dry. Wound edges slightly dessicated. UE: b/l upper ext slightly edematous LE: SCDs in place with minimal edema CBC, BMP 07/27/16 06:15 Problem List - Problems (1) Perforated peptic ulcer Assessment/Plan: POD#9, s/p exp lap for perforated peptic ulcer s/p Grahm patch The pt was lethargic and there was a risk for aspiration, so the patient remains npo including medications as per swallow eval. Cont H0B elevation. Continue npo/IVF for now(new IV placed by NS this am) will need to make arrangements for either PICC placement(TPN) or kohli tube by surgery for custodial nutritional needs. D/w Dr. YANG GI ppx with IV protonix Dvt ppx with Lovenox CBC reviewed and BMP to be completed Code(s): K27.5 - CHRONIC OR UNSP PEPTIC ULCER, SITE UNSP, WITH PERFORATION
[2016-07-27 08:17] LABS: CALCIUM 8.2 mg/dL (8.5-10.1); CREATININE 1.7 mg/dL (0.7-1.3)
--- NOTE | 2016-07-27 09:32 | PN ---
Progress Note, Physician - Current Medication List Current Medications: Active Medications Acetaminophen (Tylenol Suppository -) 650 mg IN Q6H PRN PRN Reason: FEVER OR PAIN Last Admin: 07/26/16 13:44 Dose: 650 mg Chlorhexidine Gluconate (Hibiclens For Decolonization -) 1 applic TP HS [facility] Last Admin: 07/26/16 21:55 Dose: Not Given Enoxaparin Sodium (Lovenox -) 40 mg SQ DAILY [facility] Last Admin: 07/26/16 09:33 Dose: 40 mg Pantoprazole Sodium (Protonix 40mg Ivpb (Pre-Docked)) 100 mls @ 200 mls/hr IVPB DAILY [facility] Last Admin: 07/26/16 09:32 Dose: 200 mls/hr Dextrose (D5w -) 1,000 mls @ 125 mls/hr IV .Q8H [facility] - Objective Vital Signs: Vital Signs Temperature 98.4 F 07/27/16 06:00 Pulse Rate 71 07/27/16 06:00 Respiratory Rate 18 07/27/16 06:00 Blood Pressure 138/67 07/27/16 06:00 O2 Sat by Pulse Oximetry (%) 96 07/26/16 22:00 Constitutional: Yes: Well Nourished, No Distress, Calm Eyes: Yes: WNL, Conjunctiva Clear HENT: Yes: WNL, Atraumatic, Normocephalic Neck: Yes: WNL, Supple, Trachea Midline Cardiovascular: Yes: WNL, Regular Rate and Rhythm Respiratory: Yes: WNL, Regular, CTA Bilaterally Gastrointestinal: Yes: Normal Bowel Sounds, Soft, Other (surgical dressing in place) Musculoskeletal: Yes: WNL Extremities: Yes: WNL Edema: No Integumentary: Yes: WNL Neurological: Yes: WNL, Alert, Other (poor articulation of words but he has full understanding and what he does say sounds like he is oriented) ...Motor Strength: WNL Psychiatric: Yes: WNL Labs: CBC, BMP 07/27/16 06:15 07/27/16 06:15 INR, PTT INR 1.06 (0.82-1.09) 07/18/16 11:00 Impression/Plan Impression/Plan: 80 yo male with a PMH HTN , HLD, CAD s/p stents (unknown), admitted for septic shock due to perforated peptic ulcer s/p exlap with chester patch. Currently intubated and sedated on levophed. Perforated peptic ulcer with Septic shock secondary to peritonitis -s/p ex lap with chester patch by general surgery -now off levophed and extubated 07/24 -leukocytosis improving -3 organisms growing in cultures; lactobacili rhodococcus and streptococcus -now off zosyn as per ID attending recs -had low grade fever; follow up repeat blood/urine cultures Hypernatremia -no change from yesterday to today -due to dehydration given that bun/creat is also elevated -stopped clinamix at this time -increase D5 water and trend sodium Dysmetria -continues to have garbled speech but no focal defecits on evaluation -spoke with family and they state that pt has normal speech at baseline -possibly due to recent intubation -NPO at this time -follow up speech/swallow eval Visit type - Emergency Visit Emergency Visit: Yes ED Registration Date: 07/18/16 Care time: The patient presented to the Emergency Department on the above date and was hospitalized for further evaluation of their emergent condition. - New Patient This patient is new to me today: No - Critical Care Critical Care patient: No - Discharge Referral Referred to [facility] Med [facility] No
[2016-07-27] MEDS: PANTOPRAZOLE SODIUM 100 ML IVPB SCH (10:48)
[2016-07-27] MEDS: ENOXAPARIN NA (PORCINE) 40 MG/0.4 ML DISP.SYRIN SQ SCH (10:50)
--- NOTE | 2016-07-27 11:36 | PN ---
Progress Note (short form) - Note Progress Note: PULMONARY REMAINS EXTUBATED/AFEBRILE /BP 131/63 NOT ON LEVOPHED CONVERSANT/NOT AGITATED N/C O2/DOUGLASS/SCD'S/NO NGT ANICTERIC DISTANT B/L ANTERIOR BREATH SOUNDS S1S2 RSR DISTENDED /SOFT/ J-P DRAIN IN PLACE B/L SCD'S LABS/MEDS/NOTES/MICRO/IMAGING REVIEWED ASSESSMENT AND PLAN: Perforated Prepyloric Ulcer s/p Ex-lap/Orion patch repair 07/18 s/p Acute Respiratory Failure Peritonitis Septic Shock resolving Lactic Acidosis resolved Acute Kidney Injury improving Volume Overload CAD HTN Morbid Obesity - ABX per ID - maintain MAP >65 - Daily assessment for lasix - monitor urine output, creatinine - rehab/PT - DVT/GI prophylaxis - Telemetry monitoring Allie SOLORIO MD
[2016-07-27] MEDS ORDERED: VANCOMYCIN 1,000 MG in DEXTROSE 5%-WATER - 250 ML IVPB ONE (11:39)
[2016-07-27] MEDS ORDERED: VANCOMYCIN 1 GRAM (PRE-DOCKED) 1,000 MG/250 ML BAG IVPB ONE (11:45)
[2016-07-27 15:10] LABS: CREATININE 1.6 mg/dL (0.7-1.3)
--- NOTE | 2016-07-27 17:08 | PN ---
Progress Note (short form) - Note Progress Note: currently he is sleeping but nurse reports much more responsive today afebrile today Vital Signs Period Temp Pulse Resp BP Sys/Navarrete Pulse Ox Last 24 Hr 98 F-98.7 F 69-72 18-20 127-157/57-85 96 cor-rrr lungs decreased bs at bases abd dressing intact (dressing change by surgery) ext no edema CBC, BMP 07/27/16 06:15 07/27/16 14:20 Microbiology 07/26/16 12:57 Blood Culture - Preliminary Blood - Peripheral Venous NO GROWTH OBTAINED AFTER 24 HOURS, INCUBATION TO CONTINUE FOR 4 DAYS. 07/26/16 13:00 Blood Culture - Preliminary Blood - Peripheral Venous Pending Organism a/p recurrent fever yesterday- blood cultures sent 06/11 with gpc clusters- vanco given f/u in am sepsis syndrome resolve s/p expl lap 07/18 with perfortated peptic ulcer
[2016-07-27] MEDS: DEXTROSE 5%-WATER - 1,000 ML IV SCH (17:13)
[2016-07-27] MEDS: CHLORHEXIDINE GLUCONATE 4% CLEANSER FOR DECOLONIZATION TP SCH (21:33)
--- NOTE | 2016-07-28 08:32 | PN ---
Progress Note (short form) - Note Progress Note: Surgery-Dr. Shrestha Patient seen and examined. Patient is not having much abdominal pain. Patient is NPO, wu in place. Per nursing, patient had BM two days ago. No F/C/N/V. Last Vital Signs Temp Pulse Resp BP Pulse Ox 97.8 F 61 18 115/59 96 07/28/16 06:00 07/28/16 06:00 07/28/16 06:00 07/28/16 06:00 07/26/16 22:00 Labs pending today Urine output: 1400 ml yesterday, 450 recorded overnight Exam: Gen: NAD, arrousable, alert, oriented to person and place, speech more clear Abd: Obese, soft, nontender with palp, midline incision with retention sutures in place, healing well, wet to dry dressing replaced on rounds : Wu in place with clear yellow urine Ext: Warm, slightly edematous bilat UE <Nahomy Ontiveros - Last Filed: 07/28/16 08:53> - Note Progress Note: Surgery Attending Addendum: re-evaluated by Speech-Language service and deemed able to swallow May start clear liquid diet and advance as tolerated <Lior Shrestha - Last Filed: 07/28/16 13:20> Problem List - Problems (1) Pneumoperitoneum Assessment/Plan: POD#10 s/p Exploratory laparotomy, Orion patch repair of perforated peptic ulcer Patient more alert- Speech and swallow follow-up for possible diet recs Elevate UE DVT/GI prophylaxis Abx per ID Pain control Monitor urine output, labs Code(s): K66.8 - OTHER SPECIFIED DISORDERS OF PERITONEUM <Nahomy Ontiveros - Last Filed: 07/28/16 08:53> - Problems (1) Perforated peptic ulcer Code(s): K27.5 - CHRONIC OR UNSP PEPTIC ULCER, SITE UNSP, WITH PERFORATION <Lior Shrestha - Last Filed: 07/28/16 13:20>
[2016-07-28 08:42] LABS: EOSINOPHIL 7.8 % (0-4.5); MCH 31.5 pg (25.7-33.7); MCHC 32.7 g/dl (32.0-35.9); MEAN CELL VOLUME 96.2 fl (80-96); MEAN PLT VOLUME 7.8 fl (7.5-11.1); NEUTROPHILS 59.1 % (42.8-82.8); PLATELET COUNT 216 K/MM3 (134-434); RDW 13.5 % (11.9-15.9); WHITE BLOOD COUNT 4.1 K/mm3 (4.0-10.0)
[2016-07-28 09:23] LABS: CREATININE 1.7 mg/dL (0.7-1.3)
[2016-07-28] MEDS: DEXTROSE 5%-WATER - 1,000 ML IV SCH ×2 (09:55→19:00)
[2016-07-28] MEDS: PANTOPRAZOLE SODIUM 100 ML IVPB SCH (09:59)
[2016-07-28] MEDS: ENOXAPARIN NA (PORCINE) 40 MG/0.4 ML DISP.SYRIN SQ SCH (09:59)
--- NOTE | 2016-07-28 11:54 | PN ---
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 Speech is quite slow and imprecise on sentence level. He is able to improve articulatory imprecise and intelligibility but carryover is poor. Marked weakness in all extremities.Oral peripheral cursory evaluation - symmetric/weak. Fully o x3, although seems to have impaired insight, joking frequently. Baseline ? Weak mastication, brisk but delayed swallow.No overt signs of aspiration. Selected Entries 07/27/16 07/27/16 07/27/16 02:00 06:00 10:52 Temperature 98.3 F 98.4 F 98 F 07/27/16 07/27/16 07/27/16 14:08 18:27 20:02 Temperature 98.7 F 98.6 F 97.8 F 07/28/16 07/28/16 02:00 06:00 Temperature 98.9 F 97.8 F Laboratory Tests 07/27/16 07/27/16 07/28/16 06:15 06:15 06:05 WBC 4.1 4.1 BUN 37 H IMP: Tongue coated.Marked weakness in all extremities Etiology of imprecise, slow articulation? Possible hypoxic event, now resolving ? REC: Consider Neurology evaluation. Po diet per surgeon- Clear liquids? (Pt can tolerate Dys ground/thin liquids, once cleared by surgery and gut can tolerate.)
--- NOTE | 2016-07-28 12:07 | PN ---
Progress Note, Physician History of Present Illness: PULMONARY LETHARGIC,-RESP DISTRESS,-CONGESTION - Current Medication List Current Medications: Active Medications Acetaminophen (Tylenol Suppository -) 650 mg MT Q6H PRN PRN Reason: FEVER OR PAIN Last Admin: 07/26/16 13:44 Dose: 650 mg Chlorhexidine Gluconate (Hibiclens For Decolonization -) 1 applic TP HS [facility] Last Admin: 07/27/16 21:33 Dose: Not Given Enoxaparin Sodium (Lovenox -) 40 mg SQ DAILY [facility] Last Admin: 07/28/16 09:59 Dose: 40 mg Pantoprazole Sodium (Protonix 40mg Ivpb (Pre-Docked)) 100 mls @ 200 mls/hr IVPB DAILY [facility] Last Admin: 07/28/16 09:59 Dose: 200 mls/hr Dextrose (D5w -) 1,000 mls @ 125 mls/hr IV .Q8H [facility] Last Admin: 07/28/16 09:55 Dose: 125 mls/hr - Objective Vital Signs: Vital Signs Temperature 97.8 F 07/28/16 06:00 Pulse Rate 67 07/28/16 10:11 Respiratory Rate 20 07/28/16 10:11 Blood Pressure 138/75 07/28/16 10:11 O2 Sat by Pulse Oximetry (%) 96 07/26/16 22:00 Constitutional: Yes: Well Nourished, Other (LETHARGIC) Eyes: Yes: WNL HENT: Yes: WNL Neck: Yes: Supple Cardiovascular: Yes: Regular Rate and Rhythm, S1, S2 Respiratory: Yes: Diminished (POOR INSPIRATORY EFFORT) Gastrointestinal: Yes: Normal Bowel Sounds, Soft Extremities: Yes: WNL Edema: Yes Neurological: Yes: Weakness (LETHARGIC) Labs: CBC, BMP 07/28/16 06:05 07/28/16 06:05 INR, PTT INR 1.06 (0.82-1.09) 07/18/16 11:00 Problem List - Problems (1) Acute kidney injury Code(s): N17.9 - ACUTE KIDNEY FAILURE, UNSPECIFIED (2) Bowel perforation Code(s): K63.1 - PERFORATION OF INTESTINE (NONTRAUMATIC) (3) Hx of CABG Code(s): Z95.1 - PRESENCE OF AORTOCORONARY BYPASS GRAFT (4) S/P exploratory laparotomy Code(s): Z98.89 - OTHER SPECIFIED POSTPROCEDURAL STATES * DO NOT USE * (5) Sepsis associated hypotension Code(s): A41.9 - SEPSIS, UNSPECIFIED ORGANISM Assessment/Plan ASSESSMENT AND PLAN: S/P Perforated Prepyloric Ulcer s/p Ex-lap/Orion patch repair 07/18 s/p Acute Respiratory Failure Peritonitis Septic Shock resolving Lactic Acidosis resolved Acute Kidney Injury improving Volume Overload CAD HTN Morbid Obesity - lasix prn - monitor urine output, creatinine - rehab/PT - DVT/GI prophylaxis - monitor jessee MEZA
--- NOTE | 2016-07-28 15:16 | PN ---
Progress Note, Physician - Current Medication List Current Medications: Active Medications Acetaminophen (Tylenol Suppository -) 650 mg [place] Q6H PRN PRN Reason: FEVER OR PAIN Last Admin: 07/26/16 13:44 Dose: 650 mg Chlorhexidine Gluconate (Hibiclens For Decolonization -) 1 applic TP HS [facility] Last Admin: 07/27/16 21:33 Dose: Not Given Enoxaparin Sodium (Lovenox -) 40 mg SQ DAILY [facility] Last Admin: 07/28/16 09:59 Dose: 40 mg Pantoprazole Sodium (Protonix 40mg Ivpb (Pre-Docked)) 100 mls @ 200 mls/hr IVPB DAILY [facility] Last Admin: 07/28/16 09:59 Dose: 200 mls/hr Dextrose (D5w -) 1,000 mls @ 125 mls/hr IV .Q8H [facility] Last Admin: 07/28/16 09:55 Dose: 125 mls/hr - Objective Vital Signs: Vital Signs Temperature 97.8 F 07/28/16 06:00 Pulse Rate 58 L 07/28/16 11:25 Respiratory Rate 20 07/28/16 10:11 Blood Pressure 138/75 07/28/16 10:11 O2 Sat by Pulse Oximetry (%) 98 07/28/16 11:25 Constitutional: Yes: Well Nourished, No Distress, Calm Eyes: Yes: WNL, Conjunctiva Clear HENT: Yes: WNL, Atraumatic, Normocephalic Neck: Yes: WNL, Supple, Trachea Midline Cardiovascular: Yes: WNL, Regular Rate and Rhythm Respiratory: Yes: WNL, Regular, CTA Bilaterally Gastrointestinal: Yes: WNL, Normal Bowel Sounds Musculoskeletal: Yes: WNL Extremities: Yes: WNL Edema: No Integumentary: Yes: WNL Neurological: Yes: WNL, Alert, Oriented, Other (good phonation but poor articulation of words; improved from yesterday) ...Motor Strength: WNL Psychiatric: Yes: WNL Labs: CBC, BMP 07/28/16 06:05 07/28/16 06:05 INR, PTT INR 1.06 (0.82-1.09) 07/18/16 11:00 Impression/Plan Impression/Plan: 80 yo male with a PMH HTN , HLD, CAD s/p stents (unknown), admitted for septic shock due to perforated peptic ulcer s/p exlap with chester patch. Currently intubated and sedated on levophed. Perforated peptic ulcer with Septic shock secondary to peritonitis -s/p ex lap with chester patch by general surgery -now off levophed and extubated 07/24 -leukocytosis improving -3 organisms growing in cultures; lactobacili rhodococcus and streptococcus -now off zosyn as per ID attending recs -had low grade fever; follow up repeat blood/urine cultures Hypernatremia -no change from yesterday to today -due to dehydration given that bun/creat is also elevated -stopped clinamix at this time -increase D5 water and trend sodium Dysmetria -continues to have garbled speech but no focal defecits on evaluation -spoke with family and they state that pt has normal speech at baseline -possibly due to recent intubation -speech/swallow eval appreciated; no good explanation for poor articulation of words -follow up speech eval -follow up neuro eval Visit type - Emergency Visit Emergency Visit: Yes ED Registration Date: 07/18/16 Care time: The patient presented to the Emergency Department on the above date and was hospitalized for further evaluation of their emergent condition. - New Patient This patient is new to me today: No - Critical Care Critical Care patient: No
--- NOTE | 2016-07-28 15:39 | PN ---
Progress Note (short form) - Note Progress Note: alert, conversant! Vital Signs Period Temp Pulse Resp BP Sys/Navarrete Pulse Ox Last 24 Hr 97.8 F-98.9 F 58-67 18-20 115-146/58-75 98-98 cor-rrr lungs clear abd- soft, dressing intact-dry ext- +edema CBC, BMP 07/28/16 06:05 07/28/16 06:05 Microbiology 07/26/16 12:57 Blood - Peripheral Venous Blood Culture - Preliminary NO GROWTH OBTAINED AFTER 48 HOURS, INCUBATION TO CONTINUE FOR 3 DAYS. 07/26/16 18:10 Urine - Urine Denise Urine Culture - Final NO GROWTH OBTAINED 07/26/16 13:00 Blood - Peripheral Venous Blood Culture - Preliminary Staphylococcus Coagulase Neg a/p fevers resolved blood culture isolate contaminant mental status improved please cll back if needed
[2016-07-29] MEDS: DEXTROSE 5%-WATER - 1,000 ML IV SCH ×2 (03:10→11:24)
--- NOTE | 2016-07-29 08:56 | PN ---
Progress Note (short form) - Note Progress Note: Surgery- Dr. Shrestha Patient seen and examined. Patient is more alert and talkative today. Patient is not having much pain, states he feels ready to get OOB. He has been tolerating a clear liquid diet without nausea or vomiting. Patient had a small BM. Denies fever, chills. Last Vital Signs Temp Pulse Resp BP Pulse Ox 97.7 F 60 20 146/68 98 07/29/16 06:00 07/29/16 06:00 07/29/16 06:00 07/29/16 06:00 07/28/16 21:00 CBC, BMP 07/28/16 06:05 07/28/16 06:05 Exam: Gen: NAD, more alert, oriented Abd: obese, soft, nontender, midline incision with retention sutures intact, healing well without erythema or drainage, wet to dry dressing replaced on rounds <Nahomy Ontiveros - Last Filed: 07/29/16 08:59> - Note Progress Note: Surgery Attending Patient wide awake and alert. May advance to soft diet then regular: chopped/thin per speech and language service recommendation. <Lior Shrestha - Last Filed: 07/29/16 13:16> Problem List - Problems (1) Pneumoperitoneum Assessment/Plan: POD#11 s/p Exploratory laparotomy, Orion patch repair of perforated peptic ulcer Continue clear liquids DVT/GI prophylaxis Pain control Physical therapy Code(s): K66.8 - OTHER SPECIFIED DISORDERS OF PERITONEUM <Nahomy Ontiveros - Last Filed: 07/29/16 08:59> - Problems (1) Perforated peptic ulcer Code(s): K27.5 - CHRONIC OR UNSP PEPTIC ULCER, SITE UNSP, WITH PERFORATION <Lior Shrestha - Last Filed: 07/29/16 13:16>
--- NOTE | 2016-07-29 10:52 | PN ---
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 Educated on technigues to improve intelligibility. Pt unaware of speech deficits, denies change. Poor insight with no comncern or frustration regarding extremity weakness. o x 3. Selected Entries 07/28/16 07/28/16 07/28/16 02:00 06:00 06:17 Supper Temperature 98.9 F 97.8 F 98.2 F 07/28/16 07/28/16 07/28/16 14:00 22:00 23:38 Supper 100% Temperature 98.4 F 98.5 F 07/29/16 07/29/16 02:00 06:00 Supper Temperature 98.2 F 97.7 F Tolerating clear liquids. Speech production Rec: TO IMPROVE SPEECH CLARITY: SPEAK SLOWLY AND CLEARLY ONE WORD AT A TIME EXAGGERATE PRONUNCIATION OF EVERY SYLLABLE REC:Advance diet per surgery (reg chopped/thin)
[2016-07-29] MEDS: PANTOPRAZOLE SODIUM 100 ML IVPB SCH (11:27)
[2016-07-29] MEDS: ENOXAPARIN NA (PORCINE) 40 MG/0.4 ML DISP.SYRIN SQ SCH (11:27)
--- NOTE | 2016-07-29 11:33 | PN ---
Progress Note, Physician History of Present Illness: PULMONARY AWAKE,ALERT,NAD,-SOB,-CONGESTION - Current Medication List Current Medications: Active Medications Acetaminophen (Tylenol Suppository -) 650 mg [place] Q6H PRN PRN Reason: FEVER OR PAIN Last Admin: 07/26/16 13:44 Dose: 650 mg Enoxaparin Sodium (Lovenox -) 40 mg SQ DAILY [facility] Last Admin: 07/29/16 11:27 Dose: 40 mg Pantoprazole Sodium (Protonix 40mg Ivpb (Pre-Docked)) 100 mls @ 200 mls/hr IVPB DAILY [facility] Last Admin: 07/29/16 11:27 Dose: 200 mls/hr Dextrose (D5w -) 1,000 mls @ 125 mls/hr IV .Q8H [facility] Last Admin: 07/29/16 11:24 Dose: 125 mls/hr - Objective Vital Signs: Vital Signs Temperature 97.7 F 07/29/16 06:00 Pulse Rate 60 07/29/16 06:00 Respiratory Rate 20 07/29/16 06:00 Blood Pressure 146/68 07/29/16 06:00 O2 Sat by Pulse Oximetry (%) 98 07/28/16 21:00 Constitutional: Yes: Well Nourished, Calm Eyes: Yes: WNL HENT: Yes: WNL Neck: Yes: WNL Cardiovascular: Yes: Regular Rate and Rhythm, S1, S2 Respiratory: Yes: Diminished Gastrointestinal: Yes: Soft Extremities: Yes: WNL Edema: Yes Labs: CBC, BMP 07/28/16 06:05 07/28/16 06:05 INR, PTT INR 1.06 (0.82-1.09) 07/18/16 11:00 Problem List - Problems (1) Acute kidney injury Code(s): N17.9 - ACUTE KIDNEY FAILURE, UNSPECIFIED (2) Bowel perforation Code(s): K63.1 - PERFORATION OF INTESTINE (NONTRAUMATIC) (3) Hx of CABG Code(s): Z95.1 - PRESENCE OF AORTOCORONARY BYPASS GRAFT (4) S/P exploratory laparotomy Code(s): Z98.89 - OTHER SPECIFIED POSTPROCEDURAL STATES * DO NOT USE * (5) Sepsis associated hypotension Code(s): A41.9 - SEPSIS, UNSPECIFIED ORGANISM Assessment/Plan ASSESSMENT AND PLAN: S/P Perforated Prepyloric Ulcer s/p Ex-lap/Orion patch repair 07/18 s/p Acute Respiratory Failure Peritonitis Septic Shock resolving Lactic Acidosis resolved Acute Kidney Injury improving Volume Overload CAD HTN Morbid Obesity PLAN - lasix prn - monitor urine output, creatinine - rehab/PT - DVT/GI prophylaxis - monitor jessee MEZA
--- NOTE | 2016-07-29 12:33 | PN ---
Physical Exam: SUBJECTIVE: Patient seen and examined at bedside. Pt denies any complaints today. Says he has some diarrhea but denies CP, SOB, abd pain, ALVARES, fevers, chills, and says he is able to drink his clear diet w/o problem. Pt is AAOX3. OBJECTIVE: Vital Signs Temperature 97.7 F 07/29/16 06:00 Pulse Rate 60 07/29/16 06:00 Respiratory Rate 20 07/29/16 06:00 Blood Pressure 146/68 07/29/16 06:00 O2 Sat by Pulse Oximetry (%) 98 07/28/16 21:00 GENERAL: The patient is awake, alert, and fully oriented, in no acute distress. Has trouble clearing speaking but improved compared to previously. HEAD: Normal with no signs of trauma. EYES: PERRL, extraocular movements intact, sclera anicteric, conjunctiva clear. No ptosis. ENT: moist mucous membranes. NECK: Trachea midline, supple. LUNGS: Auscultated anteriorly, Breath sounds equal, clear to auscultation bilaterally, no wheezes, no crackles, no accessory muscle use. HEART: Regular rate and rhythm, S1, S2 without murmur, rub or gallop. ABDOMEN: Soft, nontender, obese, surgical retention sutures in place. EXTREMITIES: 2+ pulses, warm, well-perfused, 3+ pitting edema B/L LE. B/L LE 3/ 5 strength. B/L UE 3/5 strength. NEUROLOGICAL: Normal speech, gait not observed. PSYCH: Normal mood. SKIN: Warm, dry, normal turgor Active Medications Generic Name Dose Route Start Last Admin Trade Name Fermínq PRN Reason Stop Dose Admin Acetaminophen 650 mg 07/26/16 12:04 07/26/16 13:44 Tylenol Suppository - VT 650 mg Q6H PRN Administration FEVER OR PAIN Enoxaparin Sodium 40 mg 07/22/16 12:45 07/29/16 11:27 Lovenox - SQ 40 mg DAILY ROWDY Administration Pantoprazole Sodium 100 mls @ 200 mls/hr 07/19/16 10:00 07/29/16 11:27 Protonix 40mg Ivpb (Pre-Docked) IVPB 200 mls/hr DAILY [facility] Administration Dextrose 1,000 mls @ 125 mls/hr 07/27/16 09:15 07/29/16 11:24 D5w - IV 125 mls/hr .Q8H [facility] Administration ASSESSMENT/PLAN: 80 yo male with a PMH HTN , HLD, CAD s/p stents (unknown), admitted for perforated peptic ulcer, s/p exlap with chester patch. Extubated 07/23. -Septic shock secondary to perforated peptic ulcer/peritonitis -POD#11 s/p ex lap, chester patch repair or perforated peptic ulcer -improving, WBC has been stable, afebrile -off pressors, s/p intubation, s/p icu -BCx: most likely contaminant as per ID -off abx -c/w protonix 40 mg iv qd -OCHOA on CKD -Cr back at baseline, improved -Dysphasia -MRI brain ordered to r/o stroke -no focal neuro deficits noted currently -most likely secondary to intubation -FEN -D5W @ 125 ml/hr -was previously hypernatremic and hyperchloremic -f/u BMP, glucose for today, will reassess need for fluids -Clear liquid diet, tolerated today -Dispo: -Continue to monitor on floor. Awaiting brain mri, will likely be discharged to rehab soon. Pt agreeable to going to rehab. Problem List - Problems (1) Acute kidney injury Code(s): N17.9 - ACUTE KIDNEY FAILURE, UNSPECIFIED (2) Bowel perforation Code(s): K63.1 - PERFORATION OF INTESTINE (NONTRAUMATIC) (3) Hx of CABG Code(s): Z95.1 - PRESENCE OF AORTOCORONARY BYPASS GRAFT (4) Perforated peptic ulcer Code(s): K27.5 - CHRONIC OR UNSP PEPTIC ULCER, SITE UNSP, WITH PERFORATION (5) Peritonitis Code(s): K65.9 - PERITONITIS, UNSPECIFIED (6) S/P exploratory laparotomy Code(s): Z98.89 - OTHER SPECIFIED POSTPROCEDURAL STATES * DO NOT USE * Visit type - Emergency Visit Emergency Visit: Yes ED Registration Date: 07/18/16 Care time: The patient presented to the Emergency Department on the above date and was hospitalized for further evaluation of their emergent condition. - New Patient This patient is new to me today: Yes Date on this admission: 07/29/16 - Critical Care Critical Care patient: No
[2016-07-29 12:58] LABS: CALCIUM 7.9 mg/dL (8.5-10.1); CREATININE 1.5 mg/dL (0.7-1.3)
--- NOTE | 2016-07-29 17:07 | PN ---
Teaching Attending Note Name of Resident: Jefe Santiago ATTENDING PHYSICIAN STATEMENT I saw and evaluated the patient. I reviewed the resident's note and discussed the case with the resident. I agree with the resident's findings and plan as documented. SUBJECTIVE:currently asymptomatic. states he had no abdominal pain, tolerating diet well. is not aware if he had any BM. denies CP, SOB,fever, chills, N/V/C/D OBJECTIVE: Last Vital Signs Temp Pulse Resp BP Pulse Ox 98.5 F 67 20 147/79 98 07/29/16 14:22 07/29/16 14:22 07/29/16 14:22 07/29/16 14:22 07/28/16 21:00 General NAD, speaks with some hesitation but most words are pronunciated clearly Abdomen soft NT/ND obese neuro CN II-XII grossly intact. strength 2/5 all extremities, unable to do complex tasks due to generalized weakness ASSESSMENT AND PLAN: 80 yo M with PMH CAD s/p stents, HTN, dyslipidemia and recently treated for bronchitis with steroids presented to the ER and was admitted for further evaluation of their emergent condition 1. Perforated peptic ulcer- s/p Orion patch. diet advanced as tolerated per surgery. having BM per RN. suture removal per surgery. switch protonix to po 2. Dysarthric speech- concern for ischemic event vs recent intubation and damage to oropharynx. likely some generalized weakness due to prolonged hospitalization and minimal activity during this time. will check MRI brain, check all electrolytes. PT eval 3. Urinary retention- wu removed yesterday however pt did not void in over 8H. bladder scan with >500cc, wu re-inserted. will need to f/u with urology as outpatient for bladder training and cystoscopy 4. OCHOA- likely due to hypotension on admission. improving. 5. Hypernatremia- resolved. d/c ivf 6. HTN- will re-start coreg at lower dose. and losartan at lower dose 7. dyslipidemia- re-start zocor 8. cad s/p stents- hold asa at this time in setting of peptic ulcer. 9. d/c planning to [facility]
[2016-07-29] MEDS: LOSARTAN POTASSIUM 25 MG TABLET PO SCH (18:50)
[2016-07-29] MEDS ORDERED: ALBUTEROL SO4 0.083% IH SOL 2.5 MG/3 ML VIAL.NEB. NEB PRN (20:40)
[2016-07-29] MEDS: ATORVASTATIN CA 20 MG TABLET (FP) PO SCH (21:31)
[2016-07-29] MEDS: CARVEDILOL 3.125 MG TABLET (FP) PO SCH (21:31)
[2016-07-30 08:24] LABS: CREATININE 1.4 mg/dL (0.7-1.3)
--- NOTE | 2016-07-30 11:05 | PN ---
Progress Note (short form) - Note Progress Note: Surgery-Dr. Shrestha Patient seen and examined. Patient is alert and more talkative. He states he is not having pain. He has been tolerating his diet. He states has not been OOB yet. States he is passing some gas, denies BM. Patient failed TOV yesterday, and has Denise back in place. Denies fever/chills/nausea/vomiting. Last Vital Signs Temp Pulse Resp BP Pulse Ox 98.7 F 64 18 111/55 99 07/30/16 06:00 07/30/16 06:00 07/30/16 06:00 07/30/16 06:00 07/29/16 22:00 CBC, BMP 07/28/16 06:05 07/30/16 06:00 Exam: Gen: NAD, alert and oriented, pleasant and cooperative Abd: obese, soft, nontender with palp, midline incision with retention sutures intact, healing well, wet to dry dressing replaced on rounds Problem List - Problems (1) Pneumoperitoneum Assessment/Plan: POD#12 s/p Exploratory laparotomy, Orion patch repair of perforated peptic ulcer Patient tolerating soft diet, advance to regular (chopped/thin) diet as tolerated DVT/GI prophylaxis Pain control Physical therapy Dressing changed on rounds Code(s): K66.8 - OTHER SPECIFIED DISORDERS OF PERITONEUM
--- NOTE | 2016-07-30 11:36 | PN ---
Progress Note, Physician History of Present Illness: pulmonary alert ,nad,-sob - Current Medication List Current Medications: Active Medications Acetaminophen (Tylenol Suppository -) 650 mg [place] Q6H PRN PRN Reason: FEVER OR PAIN Last Admin: 07/26/16 13:44 Dose: 650 mg Albuterol Sulfate (Ventolin 0.083% Nebulizer Soln -) 1 amp NEB Q4H PRN PRN Reason: SHORT OF BREATH/WHEEZING Last Admin: 07/29/16 21:20 Dose: 1 amp Atorvastatin Calcium (Lipitor -) 20 mg PO HS [facility] Last Admin: 07/29/16 21:31 Dose: 20 mg Carvedilol (Coreg -) 3.125 mg PO BID [facility] Last Admin: 07/29/16 21:31 Dose: 3.125 mg Losartan Potassium (Cozaar -) 25 mg PO DAILY [facility] Last Admin: 07/29/16 18:50 Dose: 25 mg Pantoprazole Sodium (Protonix -) 40 mg PO DAILY [facility] - Objective Vital Signs: Vital Signs Temperature 98.7 F 07/30/16 06:00 Pulse Rate 64 07/30/16 06:00 Respiratory Rate 18 07/30/16 06:00 Blood Pressure 111/55 07/30/16 06:00 O2 Sat by Pulse Oximetry (%) 99 07/29/16 22:00 Constitutional: Yes: Well Nourished, Calm Eyes: Yes: WNL HENT: Yes: WNL Neck: Yes: WNL Cardiovascular: Yes: Regular Rate and Rhythm, S1, S2 Respiratory: Yes: Diminished Gastrointestinal: Yes: Normal Bowel Sounds, Soft Extremities: Yes: WNL Edema: Yes Labs: CBC, BMP 07/28/16 06:05 07/30/16 06:00 INR, PTT INR 1.06 (0.82-1.09) 07/18/16 11:00 Problem List - Problems (1) Acute kidney injury Code(s): N17.9 - ACUTE KIDNEY FAILURE, UNSPECIFIED (2) Bowel perforation Code(s): K63.1 - PERFORATION OF INTESTINE (NONTRAUMATIC) (3) Hx of CABG Code(s): Z95.1 - PRESENCE OF AORTOCORONARY BYPASS GRAFT (4) S/P exploratory laparotomy Code(s): Z98.89 - OTHER SPECIFIED POSTPROCEDURAL STATES * DO NOT USE * (5) Sepsis associated hypotension Code(s): A41.9 - SEPSIS, UNSPECIFIED ORGANISM Assessment/Plan ASSESSMENT AND PLAN: S/P Perforated Prepyloric Ulcer s/p Ex-lap/Orion patch repair 07/18 s/p Acute Respiratory Failure Peritonitis Septic Shock resolving Lactic Acidosis resolved Acute Kidney Injury improving Volume Overload CAD HTN Morbid Obesity PLAN - monitor urine output, creatinine - rehab/PT - DVT/GI prophylaxis - monitor jessee MEZA
[2016-07-30] MEDS: PANTOPRAZOLE 40 MG TABLET (FP) PO SCH (11:39)
[2016-07-30] MEDS: CARVEDILOL 3.125 MG TABLET (FP) PO SCH ×2 (11:39→22:26)
[2016-07-30] MEDS: LOSARTAN POTASSIUM 25 MG TABLET PO SCH (11:39)
--- NOTE | 2016-07-30 12:04 | PN ---
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 Pt recalled my compensatory speech strategies. I suspect not back to baseline, Pt is fully oriented,frequently responds with a joke, insight?. MRI deferred at this time per PMD. Tolerating diet. Discussed case with pt's son who feels he is "more jovial" than usual, ( impaired insight into present functional status) and speech was definitely worse since extubation.
--- NOTE | 2016-07-30 13:01 | PN ---
Teaching Attending Note Name of Resident: Gita Maldonado ATTENDING PHYSICIAN STATEMENT I saw and evaluated the patient. I reviewed the resident's note and discussed the case with the resident. I agree with the resident's findings and plan as documented. SUBJECTIVE:currently asymptomatic. denies CP, SOB,fever, chills, N/V/C/D. OBJECTIVE: Last Vital Signs Temp Pulse Resp BP Pulse Ox 98.7 F 64 18 111/55 99 07/30/16 06:00 07/30/16 06:00 07/30/16 06:00 07/30/16 06:00 07/29/16 22:00 General NAD, speech is more coherent today, able to cooperate in physical exam more today Abdomen soft NT/ND obese neuro CN II-XII grossly intact. strength 2/5 all extremities, ASSESSMENT AND PLAN: 80 yo M with PMH CAD s/p stents, HTN, dyslipidemia and recently treated for bronchitis with steroids presented to the ER and was admitted for further evaluation of their emergent condition 1. Perforated peptic ulcer- s/p Orion patch. tolerating chopped diet. suture removal per surgery. cont protonix 2. Dysarthric speech- more coherent today, able to particpiate in physical and neuro exam but continues to feel generalized weak. no focal deficit appreciated. will hold MRI of the brain at this time. PT eval 3. Urinary retention- maintain wu. will need to f/u with urology as outpatient for bladder training and cystoscopy 4. OCHOA- likely due to hypotension on admission. improving. 5. Hypernatremia- resolved. 6. HTN- controlled. cont low dose coreg and losartan 7. dyslipidemia- zocor 8. cad s/p stents- hold asa at this time in setting of peptic ulcer. 9. d/c planning to [facility]. awaiting authorization
--- NOTE | 2016-07-30 14:49 | DS ---
Physical Exam: SUBJECTIVE: Patient seen and examined, POD #12, s/p ex lap, after bowel perforation. Overall status improved. Speech improves. Tolerating chopped diet. +BM. Denies fever, sob, cp, n, v. Still with generalized weakness. OBJECTIVE: Vital Signs Period Temp Pulse Resp BP Sys/Navarrete Pulse Ox Last 24 Hr 97.7 F-99.4 F 64-73 18-20 99-133/45-69 99-99 PHYSICAL EXAM GENERAL: The patient is awake, alert, and fully oriented, in no acute distress. HEAD: Normal with no signs of trauma. EYES: PERRL, extraocular movements intact, sclera anicteric, conjunctiva clear. ENT: Ears normal, nares patent, oropharynx clear without exudates, moist mucous membranes. NECK: Trachea midline, full range of motion, supple. LUNGS: Breath sounds decreased at lung bases; anterior auscultation, no wheezes , no crackles, no accessory muscle use. HEART: Regular rate and rhythm, S1, S2 without murmur, rub or gallop. ABDOMEN: Soft, nontender, obese, normoactive bowel sounds, midline incision with retention sutures intact, healing well, wet to dry dressing replaced, intactm no erythema, edema EXTREMITIES: 2+ pulses, warm, well-perfused, no edema. NEUROLOGICAL: Cranial nerves II through XII grossly intact. slowed speech, gait not observed. PSYCH: Normal mood, normal affect. SKIN: Warm, dry, normal turgor, no rashes or lesions noted. LABS CBC, BMP 07/28/16 06:05 07/30/16 06:00 Current Medications Generic Name Dose Route Start Last Admin Trade Name Freq PRN Reason Stop Dose Admin Acetaminophen 650 mg 07/26/16 12:04 07/26/16 13:44 Tylenol Suppository - [place] 650 mg Q6H PRN Administration FEVER OR PAIN Albuterol Sulfate 1 amp 07/29/16 20:40 07/29/16 21:20 Ventolin 0.083% Nebulizer Soln - NEB 1 amp Q4H PRN Administration SHORT OF BREATH/WHEEZING Atorvastatin Calcium 20 mg 07/29/16 22:00 07/29/16 21:31 Lipitor - PO 20 mg HS ROWDY Administration Carvedilol 3.125 mg 07/29/16 22:00 07/30/16 11:39 Coreg - PO 3.125 mg BID ROWDY Administration Losartan Potassium 25 mg 07/29/16 17:15 07/30/16 11:39 Cozaar - PO 25 mg DAILY ROWDY Administration Pantoprazole Sodium 40 mg 07/30/16 10:00 07/30/16 11:39 Protonix - PO 40 mg DAILY ROWDY Administration Microbiology 07/26/16 12:57 Blood - Peripheral Venous Blood Culture - Preliminary NO GROWTH OBTAINED AFTER 96 HOURS, INCUBATION TO CONTINUE FOR 1 DAYS. 07/26/16 13:00 Blood - Peripheral Venous Blood Culture - Final Staphylococcus Epidermidis 07/26/16 18:10 Urine - Urine Wu Urine Culture - Final NO GROWTH OBTAINED 07/18/16 14:30 Peritoneal Fluid Gram Stain - Final 07/18/16 14:30 Peritoneal Fluid Body Fluid Culture - Final Gram Positive Cocci Lactobacillus Species Rhodococcus Equi 07/18/16 14:30 Peritoneal Fluid Anaerobic Culture - Final NO ANAEROBES WERE ISOLATED 07/18/16 08:00 Blood - Peripheral Venous Blood Culture - Final NO GROWTH AFTER 5 DAYS INCUBATION 07/18/16 08:00 Blood - Peripheral Venous Blood Culture - Final NO GROWTH AFTER 5 DAYS INCUBATION 07/19/16 10:30 Sputum - Endotrachea Suction/Ventilator Gram Stain - Final 07/19/16 10:30 Sputum - Endotrachea Suction/Ventilator Sputum Culture - Final 07/19/16 10:30 Urine - Urine Wu Urine Culture - Final NO GROWTH OBTAINED HOSPITAL COURSE: Date of Admission:07/18/16 Date of Discharge: 07/30/16 This is an 80 year old male with a significant past medical history of HTN, HLD , CAD s/p stents, arthritis of bilateral knees, taking NSAIDS daily, that presented with nausea, abdominal pain and in a state of septic shock. CT abdomen showed pneumopertioneum. Patient sent to OR for exploratory laparotomy , found to have a perforated peptic ulcer with excess fluid in the peritoneal space. Surgery with chester patch repair, open incision, dieter drain and retention sutures. Patient was intubated and sedated after surgery, on 07/18/16. Managed with mechanical ventilation AC, pressers, levophed and antibiotics, zosyn. Extubated on 07/23/16, sepsis secondary to peritonitis resolved. Off antibiotics. Hypertension medications restarted. His previous home antihypertensive medications were changed to the one indicated above. There was some concern for possible stroke s/p extubation due to dysarthria, mild confusion and generalized weakness, this could be due to prolonged intubation. MRI was cancelled due to great clinical improvement today. There was no asymmetry such as facial droop, upper, lower extremity strength. Rest of neurology exam was within normal limits. Patient was evaluated by speech and swallow therapist, recommended chopped diet, which he is tolerating well. He should continue speech therapy as an outpatient. Acute kidney injury secondary to hypotension from septic shock has resolved, patient back to baseline. Minutes to complete discharge: 40 Discharge Summary Reason For Visit: PERFORATION OF INTESTINE Current Active Problems Acute kidney injury (Acute) Perforated peptic ulcer (Acute) S/P exploratory laparotomy (Acute) Urinary retention (Acute) Gout (Chronic) Obesity (Chronic) Condition: Improved - Instructions Diet, Activity, Other Instructions: Mr. Moeller, you have been treated in the hospital for a perforated peptic ulcer. We advise the limited use of any medications that can harm you gastrointestinal lining, these include NSAIDS, such as aleve, ibuprofen for pain. Follow up with a urologist for your wu catheter removal. Information on a urologist in the area has been provided Your home medications have changed. Please refer to medication list for these changes. Follow up with your primary care doctor in 1 week. Follow a chopped diet, and continue to work with a speech and swallow therapist. Wound care: wet to dry normal saline with gauze packing daily. Follow-up with Dr. Shrestha in 2 weeks in his office Referrals: Cameron Rao MD [Primary Care Provider] - Lior Shrestha MD [Staff Physician] - Cameron Chacon MD [Staff Physician] - Disposition: LONG-TERM FACILITY - Home Medications Comprehensive Discharge Medication List: Ambulatory Orders Allopurinol [Zyloprim -] 100 mg PO DAILY 07/18/16 Multivit-Min/FA/Lycopen/Lutein [Centrum Silver Tablet] 1 each PO DAILY 07/18/16 Nitroglycerin [Nitrostat] 0.4 mg SL PRN 07/18/16 Simvastatin [Zocor -] 40 mg PO HS 07/18/16 Carvedilol [Coreg -] 3.125 mg PO BID #60 tablet 07/30/16 Losartan Potassium [Cozaar -] 25 mg PO DAILY #30 tablet 07/30/16 Pantoprazole Sodium [Protonix -] 40 mg PO DAILY #30 tablet.ec 07/30/16 Problem List - Problems (1) Bowel perforation Code(s): K63.1 - PERFORATION OF INTESTINE (NONTRAUMATIC) (2) Pneumoperitoneum Code(s): K66.8 - OTHER SPECIFIED DISORDERS OF PERITONEUM (3) Sepsis associated hypotension Code(s): A41.9 - SEPSIS, UNSPECIFIED ORGANISM (4) Hypocalcemia Code(s): E83.51 - HYPOCALCEMIA (5) Acute kidney injury Code(s): N17.9 - ACUTE KIDNEY FAILURE, UNSPECIFIED (6) Gout Code(s): M10.9 - GOUT, UNSPECIFIED (7) Hx of CABG Code(s): Z95.1 - PRESENCE OF AORTOCORONARY BYPASS GRAFT This patient is new to me today: No Emergency Visit: Yes ED Registration Date: 07/18/16 Care time: The patient presented to the Emergency Department on the above date and was hospitalized for further evaluation of their emergent condition. Critical Care patient: No - Discharge Referral Referred to [facility] No
--- NOTE | 2016-07-30 17:01 | PN ---
Physical Exam: SUBJECTIVE: Patient seen and examined, POD #12, s/p ex lap;'overall improvement clinically. Still with slowed speech, but clearer. Denies pain, chest pain, sob , confusion. Had BM yesterday. Able to tolerate chopped diet. Still remains very weak. OBJECTIVE: Vital Signs Period Temp Pulse Resp BP Sys/Navarrete Pulse Ox Last 24 Hr 97.7 F-99.4 F 64-73 18-20 99-133/45-69 99-99 GENERAL: The patient is awake, alert, and fully oriented, in no acute distress. HEAD: Normal with no signs of trauma. EYES: PERRL, extraocular movements intact, sclera anicteric, conjunctiva clear. No ptosis. ENT: Ears normal, nares patent, oropharynx clear without exudates, moist mucous membranes. NECK: Trachea midline, full range of motion, supple. LUNGS: Breath sounds decreased, asculated anteriorly due to patient weakness, inability to move, clear to auscultation bilaterally, no wheezes, no crackles, no accessory muscle use. HEART: Regular rate and rhythm, S1, S2 without murmur, rub or gallop. ABDOMEN: Soft, nontender, obese, normoactive bowel sounds, incision with retenion sutures, clean dry, wet to dry dressings changed, no erythema , no edema EXTREMITIES: 2+ pulses, warm, well-perfused, mild b/l edema LE; NEUROLOGICAL: Cranial nerves II through XII grossly intact. slowed speech, gait not observed. muscle strength 3/5 LE UE PSYCH: Normal mood, normal affect. SKIN: Warm, dry, normal turgor, no rashes or lesions noted CBC, BMP 07/28/16 06:05 07/30/16 06:00 Active Medications Generic Name Dose Route Start Last Admin Trade Name Freq PRN Reason Stop Dose Admin Acetaminophen 650 mg 07/26/16 12:04 07/26/16 13:44 Tylenol Suppository - [place] 650 mg Q6H PRN Administration FEVER OR PAIN Albuterol Sulfate 1 amp 07/29/16 20:40 07/29/16 21:20 Ventolin 0.083% Nebulizer Soln - NEB 1 amp Q4H PRN Administration SHORT OF BREATH/WHEEZING Atorvastatin Calcium 20 mg 07/29/16 22:00 07/29/16 21:31 Lipitor - PO 20 mg HS ROWDY Administration Carvedilol 3.125 mg 07/29/16 22:00 07/30/16 11:39 Coreg - PO 3.125 mg BID ROWDY Administration Losartan Potassium 25 mg 07/29/16 17:15 07/30/16 11:39 Cozaar - PO 25 mg DAILY ROWDY Administration Pantoprazole Sodium 40 mg 07/30/16 10:00 07/30/16 11:39 Protonix - PO 40 mg DAILY ROWDY Administration ASSESSMENT/PLAN: 80 yo male with a PMH HTN , HLD, CAD s/p stents (unknown), admitted for perforated peptic ulcer, s/p exlap with chester patch. Extubated 07/23. 1. Perforated peptic ulcer -POD #12ex lap with chester patch. -Extubated 07/23; - NPO, pain control, wound care -protonix 40mg IVBP daily 2. Septic shock secondary to peritonitis with lactic acidosis: resolved -afebrile;off antibiotics, -appreciate ID 3. Acute on chronic kidney injury:back to baseline -most likely due to hypotension from sepsis 6. HTN: -BP meds restarted; carvedilol 3.125 mg bid; cozaar 25mg po daily FEN: Fluids:n/a Electrolytes:trend Diet: chopped DVT prophylaxis:scds Disposition: Stable to d/c to [facility]; he was accepted to [facility] ; family wants Gen ; Problem List - Problems (1) Bowel perforation Code(s): K63.1 - PERFORATION OF INTESTINE (NONTRAUMATIC) (2) Pneumoperitoneum Code(s): K66.8 - OTHER SPECIFIED DISORDERS OF PERITONEUM (3) Sepsis associated hypotension Code(s): A41.9 - SEPSIS, UNSPECIFIED ORGANISM (4) Hypocalcemia Code(s): E83.51 - HYPOCALCEMIA (5) Acute kidney injury Code(s): N17.9 - ACUTE KIDNEY FAILURE, UNSPECIFIED (6) Gout Code(s): M10.9 - GOUT, UNSPECIFIED (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 - New Patient This patient is new to me today: No - Critical Care Critical Care patient: No
[2016-07-30] MEDS: ATORVASTATIN CA 20 MG TABLET (FP) PO SCH (22:26)
[2016-07-31 07:55] LABS: BASOPHIL 0.9 % (0-2.0); EOSINOPHIL 5.9 % (0-4.5); MCH 31.1 pg (25.7-33.7); MCHC 33.1 g/dl (32.0-35.9); MEAN CELL VOLUME 94.1 fl (80-96); MEAN PLT VOLUME 8.4 fl (7.5-11.1); NEUTROPHILS 60.1 % (42.8-82.8); PLATELET COUNT 227 K/MM3 (134-434); RDW 13.5 % (11.9-15.9); WHITE BLOOD COUNT 5.4 K/mm3 (4.0-10.0)
[2016-07-31 08:39] LABS: ALBUMIN 2.5 g/dl (3.4-5.0); BILIRUBIN,TOTAL 0.5 mg/dL (0.2-1.0); CALCIUM 8.4 mg/dL (8.5-10.1); CREATININE 1.5 mg/dL (0.7-1.3); TOT PROT 5.5 g/dl (6.4-8.2)
[2016-07-31] MEDS ORDERED: PT OWN MED DRAWER 7, Y5N ONE (09:11)
[2016-07-31] MEDS: CARVEDILOL 3.125 MG TABLET (FP) PO SCH ×2 (09:18→21:17)
[2016-07-31] MEDS: LOSARTAN POTASSIUM 25 MG TABLET PO SCH (09:18)
[2016-07-31] MEDS: PANTOPRAZOLE 40 MG TABLET (FP) PO SCH (09:18)
--- NOTE | 2016-07-31 12:36 | PN ---
Teaching Attending Note Name of Resident: Gita Maldonado ATTENDING PHYSICIAN STATEMENT I saw and evaluated the patient. I reviewed the resident's note and discussed the case with the resident. I agree with the resident's findings and plan as documented. SUBJECTIVE:currently asymptomatic. denies CP, SOB,fever, chills, coug, N/V/C/D OBJECTIVE: Last Vital Signs Temp Pulse Resp BP Pulse Ox 97.9 F 74 20 128/58 98 07/31/16 10:00 07/31/16 10:00 07/31/16 10:00 07/31/16 10:00 07/31/16 10:00 General NAD, good articulation of speech Abdomen soft NT/ND obese neuro CN II-XII grossly intact. strength 2/5 all extremities, ASSESSMENT AND PLAN: 80 yo M with PMH CAD s/p stents, HTN, dyslipidemia and recently treated for bronchitis with steroids presented to the ER and was admitted for further evaluation of their emergent condition 1. Perforated peptic ulcer- s/p Orion patch. tolerating chopped diet. suture removal per surgery. cont protonix 2. Dysarthric speech- continues to improve. likely due to acute illness.will benefit from aggressive PT and speech therapy. 3. Urinary retention- maintain wu. will need to f/u with urology as outpatient for bladder training and cystoscopy 4. OCHOA- likely due to hypotension on admission. improving. 5. Hypernatremia- resolved. 6. HTN- controlled. cont low dose coreg and losartan 7. dyslipidemia- zocor 8. cad s/p stents- hold asa at this time in setting of peptic ulcer. 9. d/c planning to [facility]. awaiting authorization
--- NOTE | 2016-07-31 13:10 | PN ---
Progress Note, E MERCHANT - Note Progress Note: Pt is "waiting for the bus to take him to [place]." Speech production slightly improved. Receiving chopped diet. Tolerating diet with assistance. Selected Entries 07/30/16 07/30/16 07/30/16 02:00 06:00 14:00 Breakfast 75% Lunch 50% Supper Temperature 99.0 F 98.7 F 97.9 F 07/30/16 07/30/16 07/30/16 16:35 18:00 21:00 Breakfast Lunch Supper 75% Temperature 98.6 F 97.7 F 07/31/16 07/31/16 07/31/16 02:09 06:00 10:00 Breakfast Lunch Supper Temperature 98 F 97.9 F 97.9 F Oral motor exercises performed. Consider diet upgrade to Soft with chopped meats,extra gravy.
--- NOTE | 2016-07-31 15:48 | PN ---
Progress Note (short form) - Note Progress Note: Awake and alert. Mildly confused. Denies CP or SOB. Intake & Output 07/28/16 07/29/16 07/30/16 07/31/16 23:59 23:59 23:59 23:59 Intake Total 3745 1005 0 Output Total 565 181 9181 300 Balance 2995 105 -1100 -300 Weight 292 lb 6 oz 289 lb 2 oz Last Vital Signs Temp Pulse Resp BP Pulse Ox 98.9 F 71 18 117/72 98 07/31/16 14:00 07/31/16 14:00 07/31/16 14:00 07/31/16 14:00 07/31/16 10:00 Active Medications Acetaminophen (Tylenol Suppository -) 650 mg DC Q6H PRN PRN Reason: FEVER OR PAIN Last Admin: 07/26/16 13:44 Dose: 650 mg Albuterol Sulfate (Ventolin 0.083% Nebulizer Soln -) 1 amp NEB Q4H PRN PRN Reason: SHORT OF BREATH/WHEEZING Last Admin: 07/29/16 21:20 Dose: 1 amp Atorvastatin Calcium (Lipitor -) 20 mg PO HS [facility] Last Admin: 07/30/16 22:26 Dose: 20 mg Carvedilol (Coreg -) 3.125 mg PO BID [facility] Last Admin: 07/31/16 09:18 Dose: 3.125 mg Losartan Potassium (Cozaar -) 25 mg PO DAILY [facility] Last Admin: 07/31/16 09:18 Dose: 25 mg Pantoprazole Sodium (Protonix -) 40 mg PO DAILY [facility] Last Admin: 07/31/16 09:18 Dose: 40 mg Constitutional: Yes: NAD Eyes: Yes: WNL HENT: Yes: WNL Neck: Yes: WNL Cardiovascular: Yes: Regular Rate and Rhythm, S1, S2 Respiratory: Yes: Diminished at the bases Gastrointestinal: Yes: Normal Bowel Sounds, Soft Extremities: Yes: WNL Edema: Yes Labs: Laboratory Results - last 24 hr 07/31/16 07/31/16 07:00 07:00 WBC 5.4 D RBC 3.46 L Hgb 10.8 L Hct 32.6 L MCV 94.1 MCHC 33.1 RDW 13.5 Plt Count 227 MPV 8.4 Neutrophils % 60.1 Lymphocytes % 23.4 Monocytes % 9.7 Eosinophils % 5.9 H Basophils % 0.9 Sodium 140 Potassium 3.8 Chloride 105 Carbon Dioxide 24 Anion Gap 11 BUN 21 H Creatinine 1.5 H Creat Clearance w eGFR 45.03 Random Glucose 106 Calcium 8.4 L Total Bilirubin 0.5 AST 28 D ALT 49 Alkaline Phosphatase 67 Total Protein 5.5 L Albumin 2.5 L Problem List - Problems (1) Acute kidney injury Code(s): N17.9 - ACUTE KIDNEY FAILURE, UNSPECIFIED (2) Bowel perforation Code(s): K63.1 - PERFORATION OF INTESTINE (NONTRAUMATIC) (3) Hx of CABG Code(s): Z95.1 - PRESENCE OF AORTOCORONARY BYPASS GRAFT (4) S/P exploratory laparotomy Code(s): Z98.89 - OTHER SPECIFIED POSTPROCEDURAL STATES (5) Sepsis associated hypotension Code(s): A41.9 - SEPSIS, UNSPECIFIED ORGANISM Assessment/Plan S/P Perforated Prepyloric Ulcer s/p Ex-lap/Orion patch repair 07/18 s/p Acute Respiratory Failure Peritonitis Septic Shock resolving Lactic Acidosis resolved Acute Kidney Injury improving Volume Overload CAD HTN Morbid Obesity PLAN - rehab/PT - DVT/GI prophylaxis - PO as tolerated - D/C planning Dr Daniels Problem List - Problems (1) Bowel perforation Code(s): K63.1 - PERFORATION OF INTESTINE (NONTRAUMATIC) (2) Pneumoperitoneum Code(s): K66.8 - OTHER SPECIFIED DISORDERS OF PERITONEUM
--- NOTE | 2016-07-31 16:33 | PN ---
Physical Exam: SUBJECTIVE: Patient seen and examined, more alert today, clearer speech. wants to get out of bed, but too weak. Working with PT, unable to stand or keep limbs elevated for short period of time. No problems with eating, no BM yet. Denies fever, chills, n, v, chest pain, sob, abdominal pain. OBJECTIVE: Vital Signs Period Temp Pulse Resp BP Sys/Navarrete Pulse Ox Last 24 Hr 97.7 F-98.9 F 66-74 18-20 117-134/56-72 96-98 GENERAL: The patient is awake, alert, and fully oriented, in no acute distress. HEAD: Normal with no signs of trauma. EYES: PERRL, extraocular movements intact, sclera anicteric, conjunctiva clear. No ptosis. ENT: Ears normal, nares patent, oropharynx clear without exudates, moist mucous membranes. NECK: Trachea midline, full range of motion, supple. LUNGS: Breath sounds equal, clear to auscultation bilaterally, no wheezes, no crackles, no accessory muscle use. HEART: Regular rate and rhythm, S1, S2 without murmur, rub or gallop. ABDOMEN: Soft, nontender, nondistended, normoactive bowel sounds, no guarding, no rebound, no hepatosplenomegaly, no masses. abdominal excision , clean dry, retention sutures intact. EXTREMITIES: 2+ pulses, warm, well-perfused, no edema. NEUROLOGICAL: Cranial nerves II through XII grossly intact. Normal speech, gait not observed. UE and LE weakness b/ PSYCH: Normal mood, normal affect. SKIN: Warm, dry, normal turgor, no rashes or lesions noted CBC, BMP 07/31/16 07:00 07/31/16 07:00 Active Medications Generic Name Dose Route Start Last Admin Trade Name Freq PRN Reason Stop Dose Admin Acetaminophen 650 mg 07/26/16 12:04 07/26/16 13:44 Tylenol Suppository - [place] 650 mg Q6H PRN Administration FEVER OR PAIN Albuterol Sulfate 1 amp 07/29/16 20:40 07/29/16 21:20 Ventolin 0.083% Nebulizer Soln - NEB 1 amp Q4H PRN Administration SHORT OF BREATH/WHEEZING Atorvastatin Calcium 20 mg 07/29/16 22:00 07/30/16 22:26 Lipitor - PO 20 mg HS ROWDY Administration Carvedilol 3.125 mg 07/29/16 22:00 07/31/16 09:18 Coreg - PO 3.125 mg BID ROWDY Administration Losartan Potassium 25 mg 07/29/16 17:15 07/31/16 09:18 Cozaar - PO 25 mg DAILY ROWDY Administration Pantoprazole Sodium 40 mg 07/30/16 10:00 07/31/16 09:18 Protonix - PO 40 mg DAILY ROWDY Administration ASSESSMENT/PLAN: 80 yo male with a PMH HTN , HLD, CAD s/p stents (unknown), admitted for perforated peptic ulcer, s/p exlap with chesetr patch. Extubated 07/23. 1. Perforated peptic ulcer -POD #13ex lap with chester patch. -Extubated 07/23; - soft diet, pain control, wound care daily dressing changes with wet to dry dressing -protonix 40mg IVBP daily 2. Septic shock secondary to peritonitis with lactic acidosis: resolved -afebrile;off antibiotics, -appreciate ID 3. Acute on chronic kidney injury:back to baseline -most likely due to hypotension from sepsis 6. HTN: -BP meds restarted; carvedilol 3.125 mg bid; cozaar 25mg po daily FEN: Fluids:n/a Electrolytes:trend Diet: chopped DVT prophylaxis:scds Disposition: Stable to d/c to [facility]; awaiting [facility] response to except ; Problem List - Problems (1) Bowel perforation Code(s): K63.1 - PERFORATION OF INTESTINE (NONTRAUMATIC) (2) Pneumoperitoneum Code(s): K66.8 - OTHER SPECIFIED DISORDERS OF PERITONEUM (3) Sepsis associated hypotension Code(s): A41.9 - SEPSIS, UNSPECIFIED ORGANISM (4) Hypocalcemia Code(s): E83.51 - HYPOCALCEMIA (5) Acute kidney injury Code(s): N17.9 - ACUTE KIDNEY FAILURE, UNSPECIFIED (6) Gout Code(s): M10.9 - GOUT, UNSPECIFIED (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 - New Patient This patient is new to me today: No - Critical Care Critical Care patient: No
[2016-07-31] MEDS: ATORVASTATIN CA 20 MG TABLET (FP) PO SCH (21:17)
[2016-08-01] MEDS: PANTOPRAZOLE 40 MG TABLET (FP) PO SCH (09:24)
[2016-08-01] MEDS: LOSARTAN POTASSIUM 25 MG TABLET PO SCH (09:24)
[2016-08-01] MEDS: CARVEDILOL 3.125 MG TABLET (FP) PO SCH (09:24)
--- NOTE | 2016-08-01 13:08 | PN ---
Progress Note, GOLF CADDY - Note Progress Note: Continued improvement in articulatory precision and rate. Tolerating dys ground diet. Likely ready for diet upgrade, not yet ordered.Pt scheduled for transfer to [facility]. Rec: mechanical soft/thin liquid sp/sw eval at [facility]
[2016-08-01 15:17] VITALS: BP 129/90; PULSE 64; TEMP 97
--- NOTE | 2016-08-01 15:29 | PN ---
Teaching Attending Note Name of Resident: Gita Maldonado ATTENDING PHYSICIAN STATEMENT I saw and evaluated the patient. I reviewed the resident's note and discussed the case with the resident. I agree with the resident's findings and plan as documented. SUBJECTIVE:currently asymptomatic. denies CP, SOB,fever, chills, N/V/C/D OBJECTIVE: Last Vital Signs Temp Pulse Resp BP Pulse Ox 97 F L 64 18 129/90 92 L 08/01/16 14:00 08/01/16 14:00 08/01/16 14:00 08/01/16 14:00 08/01/16 15:00 General NAD, good articulation of speech Abdomen soft NT/ND obese neuro CN II-XII grossly intact. strength 2/5 all extremities, able to raise arms higher however cant maintain for extended period or with resistance ASSESSMENT AND PLAN: 80 yo M with PMH CAD s/p stents, HTN, dyslipidemia and recently treated for bronchitis with steroids presented to the ER and was admitted for further evaluation of their emergent condition 1. Perforated peptic ulcer- s/p Orion patch. tolerating chopped diet. suture removal per surgery. cont protonix 2. Dysarthric speech- continues to improve. likely due to acute illness.will benefit from aggressive PT and speech therapy. 3. Urinary retention- maintain wu. will need to f/u with urology as outpatient for bladder training and cystoscopy 4. OCHOA- likely due to hypotension on admission. improving. 5. Hypernatremia- resolved. 6. HTN- controlled. cont low dose coreg and losartan 7. dyslipidemia- zocor 8. cad s/p stents- hold asa at this time in setting of peptic ulcer. 9. d/c planning to [facility] today. spoke with son present at bedside, answered all questions. verbalized understanding
== END 2016-08-01 17:55 | DRG 853 ==
LOC: JER 07:19 → JERBED 11:12 → JICU 15:31 → J4S 07-25 21:30
PROVIDERS: ADMIT Internal Medicine; ATTEND Internal Medicine
PROC: 5A1955Z Respiratory Ventilation, Greater than 96 Consecutive Hours (ICD-10-PCS; 2016-07-18)
PROC: 02HV33Z Insertion of Infusion Device into Superior Vena Cava, Percutaneous Approach (ICD-10-PCS; 2016-07-18)
PROC: B548ZZA Ultrasonography of Superior Vena Cava, Guidance (ICD-10-PCS; 2016-07-18)
PROC: 0DU907Z Supplement Duodenum with Autologous Tissue Substitute, Open Approach (ICD-10-PCS; principal; 2016-07-18 12:30)
DX: A41.9 Sepsis, unspecified organism (principal); K27.5 Chronic or unspecified peptic ulcer, site unspecified, with perforation; R65.21 Severe sepsis with septic shock; K65.9 Peritonitis, unspecified; J96.00 Acute respiratory failure, unspecified whether with hypoxia or hypercapnia; N17.9 Acute kidney failure, unspecified; E87.2 Acidosis; Z68.42 Body mass index [BMI] 45.0-49.9, adult; E87.0 Hyperosmolality and hypernatremia; E78.5 Hyperlipidemia, unspecified; I25.10 Atherosclerotic heart disease of native coronary artery without angina pectoris; E66.9 Obesity, unspecified; M10.9 Gout, unspecified; I12.9 Hypertensive chronic kidney disease with stage 1 through stage 4 chronic kidney disease, or unspecified chronic kidney disease; N18.3 Chronic kidney disease, stage 3 (moderate); E66.01 Morbid (severe) obesity due to excess calories; E87.5 Hyperkalemia; Z87.891 Personal history of nicotine dependence; D64.9 Anemia, unspecified; E83.51 Hypocalcemia; Z95.1 Presence of aortocoronary bypass graft; E87.70 Fluid overload, unspecified; E86.0 Dehydration; R27.8 Other lack of coordination; R50.9 Fever, unspecified; R47.02 Dysphasia; R33.9 Retention of urine, unspecified; R47.1 Dysarthria and anarthria
CPT/HCPCS: 36415; 36600; 71010-TC; 74176-TC; 76705-TC; 80048; 80053; 82272; 82550; 82553; 82803; 83605; 83735; 83880; 84100; 84484; 85025; 85027; 85610; 86850; 86900; 86901; 87040; 87070; 87075; 87077; 87086; 87186; 87205; 93005; 93010; 94002; 94640; 94760; 97162-PG; 99283-25; G0480

== ENCOUNTER 2021-10-07 12:33 | Inpatient (IN) | payer BC ==
[2021-10-07] MEDS ORDERED: methylPREDNISolone NA SUCC 125 MG/2 ML VIAL IVPUSH ONE (13:03)
[2021-10-07] MEDS ORDERED: ALBUTEROL SO4 2.5/IPRATROPIUM 0.5 INH SOL 3 ML VIAL.NEB. NEB SCH (13:15)
[2021-10-07] MEDS ORDERED: ALBUTEROL SO4 2.5/IPRATROPIUM 0.5 INH SOL 3 ML VIAL.NEB. NEB ONE (13:16)
[2021-10-07] MEDS ORDERED: SODIUM CHLORIDE 0.9% 500 ML INFUS.BAG IV ONE (13:52)
[2021-10-07] MEDS ORDERED: PIPERACILLIN/TAZOB 3.375 GM 3.375 GM in DEXTROSE 5%-WATER - 50 ML IVPB ONE (14:07)
[2021-10-07] MEDS ORDERED: VANCOMYCIN 1 GM in D5W (PRE-DOCKED) 1,000 MG/250 ML IVPB ONE (14:07)
[2021-10-07 14:27] LABS: BASO % 0.6 % (0-2.0); EOS % 1.1 % (0-4.5); HEMATOCRIT 32.7 % (35.4-49); HEMOGLOBIN 10.5 GM/dL (11.7-16.9); LYMPH % 9.2 % (8-40); MCH 30.7 pg (25.7-33.7); MCHC 32.2 g/dl (32.0-35.9); MEAN CELL VOLUME 95.1 fl (80-96); MEAN PLT VOLUME 8.4 fl (7.5-11.1); MONO % 7.1 % (3.8-10.2); PLATELET COUNT 211 10^3/uL (134-434); RBC 3.44 M/mm3 (4.00-5.60); RDW 14.4 % (11.9-15.9); WHITE BLOOD COUNT 5.5 K/mm3 (4.0-10.0)
[2021-10-07 14:32] LABS: VENOUS BASE EXCESS -7.7 mmol/L (-2-2); VENOUS O2 SATURATION 60.5 % (70-80); VENOUS PCO2 63.5 mmHg (38-52)
[2021-10-07 14:37] LABS: VENOUS PH 7.151 (7.310-7.410)
[2021-10-07] MEDS ORDERED: PIPERACILLIN/TAZOB 3.375 GM 3.375 GM/50 ML BAG IVPB ONE (14:44)
[2021-10-07] MEDS ORDERED: VANCOMYCIN 1 GRAM (PRE-DOCKED) 1,000 MG/250 ML BAG IVPB ONE (14:44)
[2021-10-07] MEDS ORDERED: LACTATED RINGERS SOLUTION 1000 ML INFUS.BAG IV ONE (14:48)
[2021-10-07 14:52] LABS: BLOOD UREA NITROGEN 97.7 mg/dL (7-18); CALCIUM 7.3 mg/dL (8.5-10.1); MAGNESIUM 2.7 mg/dL (1.8-2.4)
[2021-10-07 14:53] LABS: ALBUMIN 3.1 g/dl (3.4-5.0)
[2021-10-07 14:56] LABS: CREATININE 2.4 mg/dL (0.55-1.3)
[2021-10-07 14:57] LABS: BILIRUBIN,TOTAL 0.3 mg/dL (0.2-1); TOT PROT 6.7 g/dl (6.4-8.2)
[2021-10-07 15:00] LABS: N-TERMINAL BNP 1134.7 pg/ml (5-450)
[2021-10-07] MEDS ORDERED: NOREPINEPHRINE BITARTRATE 4 MG/4 ML ML IV ONE (15:18)
[2021-10-07] MEDS: NOREPINEPHRINE D5W PREMIX 16,000 MCG/500 ML BAG IVPB SCH (15:36)
[2021-10-07 17:51] LABS: ARTERIAL BLD GAS O2 SATURATION 95.3 % (95-98); ARTERIAL BLOOD GAS BASE EXCESS -8.6 mmol/L (-2-2); ARTERIAL BLOOD GAS PO2 94.3 mmHg (80-100)
[2021-10-07 18:20] LABS: ALLENS TEST POSITIVE
[2021-10-07 18:23] LABS: ARTERIAL BLOOD GAS pH 7.185 (7.350-7.450)
[2021-10-07] MEDS ORDERED: ALBUTEROL SO4 0.083% IH SOL 2.5 MG/3 ML VIAL.NEB. NEB PRN (19:45)
[2021-10-07 20:49] LABS: EPI CELLS >36 /uL (0-25.1); HYALINE CASTS 4 /uL (0-3.1); URINE APPEARANCE CLEAR; URINE BACTERIA 58 /uL (0-1359); URINE BILIRUBIN NEGATIVE (NEGATIVE); URINE COLOR YELLOW; URINE GLUCOSE (UA) NEGATIVE (NEGATIVE); URINE KETONE NEGATIVE (NEGATIVE); URINE LEUK ESTERASE 2+ (NEGATIVE); URINE NITRITE NEGATIVE (NEGATIVE); URINE PROTEIN NEGATIVE (NEGATIVE); URINE RBC 660 /uL (0-23.9); URINE UROBILINOGEN 0.2 mg/dL (0.2-1.0); URINE WBC 329 /uL (0-25.8)
[2021-10-07] MEDS ORDERED: PIPERACILLIN/TAZOBACTAM 3.375 GM VIAL IVPB ONE (23:03)
[2021-10-07] MEDS ORDERED: DEXTROSE 5%-WATER - 50 ML IVPB ONE (23:04)
[2021-10-07] MEDS: HEPARIN NA (PORCINE) 5,000 UNITS/ML 1ML VIAL SQ SCH (23:05)
[2021-10-07] MEDS: MUPIROCIN 2% TOPICAL OINTMENT FOR DECOLONIZATION NS SCH (23:05)
[2021-10-07] MEDS: PIPERACILLIN/TAZOB 3.375 GM 3.375 GM in DEXTROSE 5%-WATER - 50 ML IVPB SCH (23:06)
[2021-10-07] MEDS: CHLORHEXIDINE GLUCONATE 4% CLEANSER FOR DECOLONIZATION TP SCH (23:06)
[2021-10-08] MEDS ORDERED: ACETAMINOPHEN 1000 MG/100 ML BAG IVPB ONE ×2 (00:55→15:11)
[2021-10-08] MEDS ORDERED: PIPERACILLIN/TAZOBACTAM 3.375 GM VIAL IVPB ONE (05:17)
[2021-10-08] MEDS ORDERED: DEXTROSE 5%-WATER - 50 ML IVPB ONE (05:18)
[2021-10-08] MEDS: HEPARIN NA (PORCINE) 5,000 UNITS/ML 1ML VIAL SQ SCH ×3 (05:36→21:28)
[2021-10-08] MEDS: PIPERACILLIN/TAZOB 3.375 GM 3.375 GM in DEXTROSE 5%-WATER - 50 ML IVPB SCH (06:22)
[2021-10-08 06:44] LABS: ARTERIAL BLOOD GAS BASE EXCESS -8.3 mmol/L (-2-2)
[2021-10-08 07:06] LABS: ARTERIAL BLOOD GAS pH 7.181 (7.350-7.450)
[2021-10-08 07:13] LABS: ALLENS TEST POSITIVE
[2021-10-08 07:53] LABS: BASO % 0.5 % (0-2.0); EOS % 1.2 % (0-4.5); HEMATOCRIT 32.8 % (35.4-49); HEMOGLOBIN 10.5 GM/dL (11.7-16.9); LYMPH % 11.9 % (8-40); MCH 30.6 pg (25.7-33.7); MCHC 32.1 g/dl (32.0-35.9); MEAN CELL VOLUME 95.5 fl (80-96); MEAN PLT VOLUME 8.5 fl (7.5-11.1); MONO % 8.3 % (3.8-10.2); NEUT % 78.1 % (42.8-82.8); PLATELET COUNT 248 10^3/uL (134-434); RBC 3.44 M/mm3 (4.00-5.60); RDW 14.8 % (11.9-15.9)
[2021-10-08 08:08] LABS: CALCIUM 7.2 mg/dL (8.5-10.1)
[2021-10-08 08:09] LABS: MAGNESIUM 2.7 mg/dL (1.8-2.4)
[2021-10-08 08:12] LABS: CREATININE 2.4 mg/dL (0.55-1.3); PHOSPHOROUS 5.9 mg/dL (2.5-4.9)
[2021-10-08 08:13] LABS: BILIRUBIN,TOTAL 0.5 mg/dL (0.2-1); TOT PROT 6.2 g/dl (6.4-8.2)
[2021-10-08] MEDS: MUPIROCIN 2% TOPICAL OINTMENT FOR DECOLONIZATION NS SCH ×2 (10:06→21:29)
[2021-10-08] MEDS ORDERED: LACTATED RINGERS SOLUTION 1000 ML INFUS.BAG IV ONE (10:43)
[2021-10-08] MEDS ORDERED: LACTATED RINGERS SOLUTION 1,000 ML/1,000 ML INFUS.BAG IV SCH (11:45)
[2021-10-08] MEDS: ASPIRIN 81 MG CHEWABLE TABLETS PO SCH (12:05)
[2021-10-08] MEDS: ALLOPURINOL 100 MG TABLET (FP) PO SCH (12:06)
[2021-10-08] MEDS ORDERED: VANCOMYCIN 1 GM in D5W (PRE-DOCKED) 1,000 MG/250 ML IVPB SCH (15:00)
[2021-10-08 15:18] VITALS: BMI 49.9
[2021-10-08] MEDS ORDERED: AMPICILLIN NA/SULBACTAM NA 1.5 GM VIAL ONE (17:43)
[2021-10-08] MEDS ORDERED: SODIUM CHLORIDE 100 ML IVPB ONE (17:44)
[2021-10-08] MEDS: AMPICILLIN NA/SULBACTAM NA 1.5 GM in SODIUM CHLORIDE 100 ML IVPB SCH (17:59)
[2021-10-08] MEDS: MELATONIN 5 MG TABLETS PO SCH (21:28)
[2021-10-08] MEDS: CHLORHEXIDINE GLUCONATE 4% CLEANSER FOR DECOLONIZATION TP SCH (21:29)
[2021-10-08] MEDS ORDERED: PIPERACILLIN/TAZOB 3.375 GM 3.375 GM in DEXTROSE 5%-WATER - 50 ML IVPB SCH (23:00)
[2021-10-09] MEDS ORDERED: QUEtiapine FUMARATE 25 MG TABLET PO ONE ×2 (00:05→04:37)
[2021-10-09] MEDS ORDERED: ACETAMINOPHEN 1000 MG/100 ML BAG IVPB ONE (00:40)
[2021-10-09] MEDS ORDERED: QUEtiapine FUMARATE 25 MG TABLET PO SCH ×2 (00:45→10:00)
[2021-10-09] MEDS ORDERED: QUEtiapine FUMARATE 25 MG TABLET PO PRN (02:01)
[2021-10-09] MEDS ORDERED: AMPICILLIN NA/SULBACTAM NA 1.5 GM VIAL ONE ×3 (02:22→18:11)
[2021-10-09] MEDS ORDERED: SODIUM CHLORIDE 100 ML IVPB ONE ×3 (02:22→18:11)
[2021-10-09] MEDS: AMPICILLIN NA/SULBACTAM NA 1.5 GM in SODIUM CHLORIDE 100 ML IVPB SCH ×3 (02:26→18:14)
[2021-10-09] MEDS: HEPARIN NA (PORCINE) 5,000 UNITS/ML 1ML VIAL SQ SCH ×3 (05:53→22:01)
[2021-10-09 07:09] LABS: HEMATOCRIT 33.2 % (35.4-49); HEMOGLOBIN 10.4 GM/dL (11.7-16.9); MCH 30.3 pg (25.7-33.7); MCHC 31.4 g/dl (32.0-35.9); MEAN CELL VOLUME 96.5 fl (80-96); MEAN PLT VOLUME 8.6 fl (7.5-11.1); PLATELET COUNT 221 10^3/uL (134-434); RBC 3.44 M/mm3 (4.00-5.60); RDW 14.9 % (11.9-15.9); WHITE BLOOD COUNT 6.1 K/mm3 (4.0-10.0)
[2021-10-09 07:40] LABS: ALBUMIN 2.9 g/dl (3.4-5.0); BLOOD UREA NITROGEN 98.4 mg/dL (7-18); CALCIUM 7.2 mg/dL (8.5-10.1); MAGNESIUM 2.5 mg/dL (1.8-2.4)
[2021-10-09 07:43] LABS: CREATININE 2.4 mg/dL (0.55-1.3); PHOSPHOROUS 5.8 mg/dL (2.5-4.9)
[2021-10-09 07:44] LABS: BILIRUBIN,TOTAL 0.3 mg/dL (0.2-1)
[2021-10-09] MEDS ORDERED: LORazepam 2 MG/ML SDV VIAL IVPUSH ONE (08:17)
[2021-10-09] MEDS: MUPIROCIN 2% TOPICAL OINTMENT FOR DECOLONIZATION NS SCH ×2 (10:09→22:02)
[2021-10-09 11:55] LABS: ARTERIAL BLD GAS O2 SATURATION 96.2 % (95-98); ARTERIAL BLOOD GAS BASE EXCESS -9.2 mmol/L (-2-2); ARTERIAL BLOOD GAS PO2 106.3 mmHg (80-100)
[2021-10-09 11:57] LABS: ALLENS TEST POSITIVE
[2021-10-09 11:58] LABS: VENT RATE 20
[2021-10-09 11:59] LABS: ARTERIAL BLOOD GAS pH 7.154 (7.350-7.450)
[2021-10-09 14:46] LABS: ALLENS TEST POSITIVE; ARTERIAL BLD GAS O2 SATURATION 96.4 % (95-98); ARTERIAL BLOOD GAS BASE EXCESS -9.4 mmol/L (-2-2); ARTERIAL BLOOD GAS PO2 109.9 mmHg (80-100)
[2021-10-09 14:47] LABS: VENT RATE 24
[2021-10-09 14:49] LABS: ARTERIAL BLOOD GAS pH 7.137 (7.350-7.450)
[2021-10-09] MEDS ORDERED: RAPID SEQUENCE INTUBATION KIT NR ONE (14:55)
[2021-10-09] MEDS ORDERED: LIDOCAINE HCL 2% 100 MG/5 ML DISP.SYRIN ONE (15:14)
[2021-10-09] MEDS ORDERED: PHENYLEPHRINE HCL 10 MG/1 ML SINGLE DOSE VIAL ONE (15:19)
[2021-10-09] MEDS ORDERED: FENTANYL NS IVPB 500 MCG/100 ML BAG IVPB SCH (15:45)
[2021-10-09] MEDS ORDERED: fentaNYL CITRATE 250 MCG/5 ML VIAL IVPUSH ONE ×2 (15:55→17:47)
[2021-10-09] MEDS ORDERED: ROCURONIUM BROMIDE 50 MG/5 ML VIAL IV ONE ×2 (15:55)
[2021-10-09] MEDS ORDERED: PROPOFOL 200 MG/20 ML VIAL IVPUSH ONE ×3 (15:56→16:53)
[2021-10-09] MEDS ORDERED: LIDOCAINE HCL 2% 100 MG/5 ML DISP.SYRIN IVPUSH ONE (15:58)
[2021-10-09] MEDS: ALLOPURINOL 100 MG TABLET (FP) PO SCH (16:42)
[2021-10-09] MEDS: ASPIRIN 81 MG CHEWABLE TABLETS PO SCH (16:43)
[2021-10-09] MEDS: MIDAZOLAM IN 0.9 % SOD.CHLORID 100 MG/100 ML PLAST..BAG IVPB SCH (16:54)
[2021-10-09 17:52] LABS: ARTERIAL BLD GAS O2 SATURATION 99.8 % (95-98); ARTERIAL BLOOD GAS BASE EXCESS -7.8 mmol/L (-2-2)
[2021-10-09 17:57] LABS: ALLENS TEST POSITIVE; VENT MODE V-AC; VENT RATE 16
[2021-10-09] MEDS: PROPOFOL 1,000,000 MCG/100 ML VIAL IVPB SCH (18:10)
[2021-10-09] MEDS: FENTANYL NS IVPB 500 MCG/100 ML BAG IVPB SCH ×2 (19:28→22:14)
[2021-10-09] MEDS: NOREPINEPHRINE D5W PREMIX 16,000 MCG/500 ML BAG IVPB SCH (20:29)
[2021-10-09] MEDS: CHLORHEXIDINE GLUCONATE 4% CLEANSER FOR DECOLONIZATION TP SCH (22:02)
[2021-10-09] MEDS: MELATONIN 5 MG TABLETS PO SCH (23:57)
[2021-10-10] MEDS: PROPOFOL 1,000,000 MCG/100 ML VIAL IVPB SCH ×4 (00:49→17:30)
[2021-10-10] MEDS ORDERED: AMPICILLIN NA/SULBACTAM NA 1.5 GM VIAL ONE ×3 (02:37→18:14)
[2021-10-10] MEDS ORDERED: SODIUM CHLORIDE 100 ML IVPB ONE ×3 (02:38→18:14)
[2021-10-10] MEDS: AMPICILLIN NA/SULBACTAM NA 1.5 GM in SODIUM CHLORIDE 100 ML IVPB SCH ×3 (03:01→18:53)
[2021-10-10] MEDS: FENTANYL NS IVPB 500 MCG/100 ML BAG IVPB SCH ×2 (03:45→15:23)
[2021-10-10] MEDS: MIDAZOLAM IN 0.9 % SOD.CHLORID 100 MG/100 ML PLAST..BAG IVPB SCH ×3 (04:19→17:00)
[2021-10-10] MEDS: HEPARIN NA (PORCINE) 5,000 UNITS/ML 1ML VIAL SQ SCH ×3 (06:00→22:54)
[2021-10-10 07:24] LABS: HEMATOCRIT 32.7 % (35.4-49); HEMOGLOBIN 10.5 GM/dL (11.7-16.9); MCH 30.6 pg (25.7-33.7); MCHC 32.1 g/dl (32.0-35.9); MEAN CELL VOLUME 95.3 fl (80-96); MEAN PLT VOLUME 8.3 fl (7.5-11.1); PLATELET COUNT 277 10^3/uL (134-434); RBC 3.44 M/mm3 (4.00-5.60); RDW 14.9 % (11.9-15.9); WHITE BLOOD COUNT 5.2 K/mm3 (4.0-10.0)
[2021-10-10 08:17] LABS: ALBUMIN 2.6 g/dl (3.4-5.0); BLOOD UREA NITROGEN 99.2 mg/dL (7-18); CALCIUM 7.3 mg/dL (8.5-10.1); MAGNESIUM 2.7 mg/dL (1.8-2.4)
[2021-10-10 08:20] LABS: CREATININE 2.3 mg/dL (0.55-1.3); PHOSPHOROUS 3.7 mg/dL (2.5-4.9)
[2021-10-10 08:22] LABS: BILIRUBIN,TOTAL 0.3 mg/dL (0.2-1); TOT PROT 5.5 g/dl (6.4-8.2)
[2021-10-10 09:44] LABS: ARTERIAL BLD GAS O2 SATURATION 98.8 % (95-98); ARTERIAL BLOOD GAS BASE EXCESS -8.1 mmol/L (-2-2); ARTERIAL BLOOD GAS PO2 151.5 mmHg (80-100); ARTERIAL BLOOD GAS pH 7.332 (7.350-7.450)
[2021-10-10 09:49] LABS: ALLENS TEST POSITIVE
[2021-10-10 09:51] LABS: VENT MODE A/C; VENT RATE 16
[2021-10-10] MEDS: ASPIRIN 81 MG CHEWABLE TABLETS PO SCH (10:14)
[2021-10-10] MEDS: ALLOPURINOL 100 MG TABLET (FP) PO SCH (10:14)
[2021-10-10] MEDS: MUPIROCIN 2% TOPICAL OINTMENT FOR DECOLONIZATION NS SCH ×2 (10:14→22:54)
[2021-10-10] MEDS: NOREPINEPHRINE D5W PREMIX 16,000 MCG/500 ML BAG IVPB SCH (12:00)
[2021-10-10] MEDS: CHLORHEXIDINE GLUCONATE 4% CLEANSER FOR DECOLONIZATION TP SCH (22:54)
[2021-10-10] MEDS: MELATONIN 5 MG TABLETS PO SCH (22:55)
[2021-10-11] MEDS ORDERED: AMPICILLIN NA/SULBACTAM NA 1.5 GM VIAL ONE ×4 (00:49→22:06)
[2021-10-11] MEDS ORDERED: SODIUM CHLORIDE 100 ML IVPB ONE ×4 (00:49→22:06)
[2021-10-11] MEDS: AMPICILLIN NA/SULBACTAM NA 1.5 GM in SODIUM CHLORIDE 100 ML IVPB SCH ×3 (01:00→18:38)
[2021-10-11] MEDS: PROPOFOL 1,000,000 MCG/100 ML VIAL IVPB SCH ×3 (03:53→22:10)
[2021-10-11] MEDS: FENTANYL NS IVPB 500 MCG/100 ML BAG IVPB SCH ×4 (03:53→22:04)
[2021-10-11] MEDS: HEPARIN NA (PORCINE) 5,000 UNITS/ML 1ML VIAL SQ SCH ×3 (06:15→22:10)
[2021-10-11] MEDS: MIDAZOLAM IN 0.9 % SOD.CHLORID 100 MG/100 ML PLAST..BAG IVPB SCH ×2 (06:28→16:45)
[2021-10-11 07:11] LABS: HEMATOCRIT 33.4 % (35.4-49); HEMOGLOBIN 10.7 GM/dL (11.7-16.9); MCH 30.3 pg (25.7-33.7); MCHC 32.1 g/dl (32.0-35.9); MEAN CELL VOLUME 94.3 fl (80-96); MEAN PLT VOLUME 8.2 fl (7.5-11.1); PLATELET COUNT 261 10^3/uL (134-434); RBC 3.55 M/mm3 (4.00-5.60); WHITE BLOOD COUNT 4.9 K/mm3 (4.0-10.0)
[2021-10-11 07:37] LABS: CALCIUM 7.7 mg/dL (8.5-10.1)
[2021-10-11 07:38] LABS: ALBUMIN 2.4 g/dl (3.4-5.0); BLOOD UREA NITROGEN 97.3 mg/dL (7-18); MAGNESIUM 2.8 mg/dL (1.8-2.4)
[2021-10-11 07:40] LABS: CREATININE 2.4 mg/dL (0.55-1.3)
[2021-10-11 07:41] LABS: PHOSPHOROUS 3.7 mg/dL (2.5-4.9)
[2021-10-11 07:42] LABS: BILIRUBIN,TOTAL 0.4 mg/dL (0.2-1); TOT PROT 5.2 g/dl (6.4-8.2)
[2021-10-11] MEDS: ASPIRIN 81 MG CHEWABLE TABLETS PO SCH (10:03)
[2021-10-11] MEDS: ALLOPURINOL 100 MG TABLET (FP) PO SCH (10:03)
[2021-10-11] MEDS: MUPIROCIN 2% TOPICAL OINTMENT FOR DECOLONIZATION NS SCH ×2 (10:03→22:09)
[2021-10-11] MEDS: MELATONIN 5 MG TABLETS PO SCH (22:04)
[2021-10-11] MEDS: CHLORHEXIDINE GLUCONATE 4% CLEANSER FOR DECOLONIZATION TP SCH (22:09)
[2021-10-12] MEDS: AMPICILLIN NA/SULBACTAM NA 1.5 GM in SODIUM CHLORIDE 100 ML IVPB SCH ×3 (02:00→17:10)
[2021-10-12] MEDS: HEPARIN NA (PORCINE) 5,000 UNITS/ML 1ML VIAL SQ SCH ×3 (05:38→21:18)
[2021-10-12 07:16] LABS: HEMATOCRIT 34.7 % (35.4-49); HEMOGLOBIN 11.1 GM/dL (11.7-16.9); MCH 30.3 pg (25.7-33.7); MEAN CELL VOLUME 94.8 fl (80-96); MEAN PLT VOLUME 8.8 fl (7.5-11.1); PLATELET COUNT 312 10^3/uL (134-434); RBC 3.66 M/mm3 (4.00-5.60); RDW 14.9 % (11.9-15.9); WHITE BLOOD COUNT 5.7 K/mm3 (4.0-10.0)
[2021-10-12 07:43] LABS: ALBUMIN 2.4 g/dl (3.4-5.0); BLOOD UREA NITROGEN 101.6 mg/dL (7-18); CALCIUM 8.1 mg/dL (8.5-10.1); MAGNESIUM 3.1 mg/dL (1.8-2.4)
[2021-10-12 07:48] LABS: BILIRUBIN,TOTAL 0.8 mg/dL (0.2-1)
[2021-10-12 07:50] LABS: PHOSPHOROUS 3.8 mg/dL (2.5-4.9)
[2021-10-12 07:51] LABS: TOT PROT 5.5 g/dl (6.4-8.2)
[2021-10-12] MEDS ORDERED: AMPICILLIN NA/SULBACTAM NA 1.5 GM VIAL ONE ×3 (09:27→21:17)
[2021-10-12] MEDS ORDERED: SODIUM CHLORIDE 100 ML IVPB ONE ×3 (09:27→21:17)
[2021-10-12] MEDS: ASPIRIN 81 MG CHEWABLE TABLETS PO SCH (09:31)
[2021-10-12] MEDS: ALLOPURINOL 100 MG TABLET (FP) PO SCH (09:31)
[2021-10-12] MEDS: MUPIROCIN 2% TOPICAL OINTMENT FOR DECOLONIZATION NS SCH (09:35)
[2021-10-12] MEDS: FENTANYL NS IVPB 500 MCG/100 ML BAG IVPB SCH ×2 (12:30→21:19)
[2021-10-12] MEDS: PROPOFOL 1,000,000 MCG/100 ML VIAL IVPB SCH ×2 (13:37→21:19)
[2021-10-12] MEDS: CHLORHEXIDINE GLUCONATE 4% CLEANSER FOR DECOLONIZATION TP SCH (21:19)
[2021-10-12] MEDS: MELATONIN 5 MG TABLETS PO SCH (21:20)
[2021-10-13] MEDS: AMPICILLIN NA/SULBACTAM NA 1.5 GM in SODIUM CHLORIDE 100 ML IVPB SCH (01:17)
[2021-10-13 05:45] LABS: ARTERIAL BLD GAS O2 SATURATION 96.5 % (95-98); ARTERIAL BLOOD GAS BASE EXCESS -7.8 mmol/L (-2-2); ARTERIAL BLOOD GAS PO2 89.5 mmHg (80-100); ARTERIAL BLOOD GAS pH 7.336 (7.350-7.450)
[2021-10-13 05:46] LABS: ALLENS TEST POSITIVE
[2021-10-13 05:47] LABS: VENT MODE A/C; VENT RATE 16
[2021-10-13] MEDS: HEPARIN NA (PORCINE) 5,000 UNITS/ML 1ML VIAL SQ SCH ×3 (06:07→21:10)
[2021-10-13] MEDS: VASOPRESSIN 40 UNITS/100 ML BAG IV SCH ×2 (06:42→11:31)
[2021-10-13 07:03] LABS: EOS % 1.1 % (0-4.5); HEMATOCRIT 35.1 % (35.4-49); HEMOGLOBIN 11.4 GM/dL (11.7-16.9); LYMPH % 11.4 % (8-40); MCH 30.3 pg (25.7-33.7); MCHC 32.4 g/dl (32.0-35.9); MEAN CELL VOLUME 93.4 fl (80-96); MEAN PLT VOLUME 9.1 fl (7.5-11.1); MONO % 10.8 % (3.8-10.2); NEUT % 75.7 % (42.8-82.8); PLATELET COUNT 325 10^3/uL (134-434); RBC 3.76 M/mm3 (4.00-5.60); RDW 15.3 % (11.9-15.9); WHITE BLOOD COUNT 7.8 K/mm3 (4.0-10.0)
[2021-10-13 07:15] LABS: CHLORIDE 110 mmol/L (98-107); SODIUM 140 mmol/L (136-145)
[2021-10-13 07:23] LABS: CALCIUM 8.1 mg/dL (8.5-10.1)
[2021-10-13 07:24] LABS: ALBUMIN 2.3 g/dl (3.4-5.0); ANION GAP 12 MMOL/L (8-16); CO2 18 mmol/L (21-32); GLUCOSE,RANDOM 279 mg/dL (74-106)
[2021-10-13 07:27] LABS: CREATININE 3.5 mg/dL (0.55-1.3); SGOT/AST 345 U/L (15-37); SGPT/ALT 250 U/L (13-61)
[2021-10-13 07:28] LABS: BILIRUBIN,TOTAL 0.7 mg/dL (0.2-1); TOT PROT 5.7 g/dl (6.4-8.2)
[2021-10-13 08:23] LABS: ALK PHOS 198 U/L (45-117); BLOOD UREA NITROGEN 106.3 mg/dL (7-18)
[2021-10-13] MEDS ORDERED: PIPERACILLIN/TAZOB 2.25 GM 2.25 GM in DEXTROSE 5%-WATER - 50 ML IVPB SCH (09:00)
[2021-10-13] MEDS: HYDROCORTISONE SOD SUCCINATE 100 MG/2 ML VIAL IVPUSH SCH ×3 (09:15→23:58)
[2021-10-13] MEDS ORDERED: DEXTROSE 5%-WATER - 50 ML IVPB ONE ×3 (09:15→21:11)
[2021-10-13] MEDS ORDERED: PIPERACILLIN/TAZOBACTAM 2.25 GM VIAL IVPB ONE ×3 (09:15→21:11)
[2021-10-13] MEDS ORDERED: VANCOMYCIN/WATER FOR INJ (PEG) 1,000 MG/200 ML BAG IVPB ONE (09:36)
[2021-10-13] MEDS: ASPIRIN 81 MG CHEWABLE TABLETS PO SCH (09:36)
[2021-10-13] MEDS: ALLOPURINOL 100 MG TABLET (FP) PO SCH (09:36)
[2021-10-13] MEDS: ALBUMIN HUMAN 25% 12.5 GM/50 ML VIAL IV SCH ×4 (13:56→15:30)
[2021-10-13] MEDS: NOREPINEPHRINE D5W PREMIX 16,000 MCG/500 ML BAG IVPB SCH (14:31)
[2021-10-13] MEDS: FENTANYL NS IVPB 500 MCG/100 ML BAG IVPB SCH ×2 (14:32→20:28)
[2021-10-13] MEDS ORDERED: EPINEPHrine 1:1,000 1,000 MCG in DEXTROSE 5%-WATER - 249 ML IVPB SCH (15:00)
[2021-10-13 15:45] LABS: ARTERIAL BLD GAS O2 SATURATION 95.8 % (95-98); ARTERIAL BLOOD GAS BASE EXCESS -10.9 mmol/L (-2-2); ARTERIAL BLOOD GAS PO2 89.2 mmHg (80-100); ARTERIAL BLOOD GAS pH 7.268 (7.350-7.450)
[2021-10-13] MEDS ORDERED: SODIUM BICARBONATE 8.4% 50 MEQ/50 ML DISP.SYRIN IVPUSH ONE ×2 (15:47→15:49)
[2021-10-13] MEDS ORDERED: SODIUM BICARBONATE 8.4% - 100 ML ONE (15:51)
[2021-10-13] MEDS: ALBUMIN HUMAN 25% 100 ML VIAL IV SCH (15:53)
[2021-10-13] MEDS: FLUDROCORTISONE ACETATE 0.1 MG TABLET (FP) PO SCH (15:56)
[2021-10-13] MEDS: PIPERACILLIN/TAZOB 2.25 GM 2.25 GM in DEXTROSE 5%-WATER - 50 ML IVPB SCH ×2 (15:57→21:11)
[2021-10-13 16:04] LABS: BASO % 0.3 % (0-2.0); EOS % 0.1 % (0-4.5); HEMATOCRIT 36.1 % (35.4-49); HEMOGLOBIN 11.1 GM/dL (11.7-16.9); LYMPH % 8.6 % (8-40); MCHC 30.9 g/dl (32.0-35.9); MEAN CELL VOLUME 96.9 fl (80-96); MEAN PLT VOLUME 9.5 fl (7.5-11.1); MONO % 5.3 % (3.8-10.2); NEUT % 85.7 % (42.8-82.8); PLATELET COUNT 280 10^3/uL (134-434); RBC 3.72 M/mm3 (4.00-5.60); RDW 15.4 % (11.9-15.9); WHITE BLOOD COUNT 9.5 K/mm3 (4.0-10.0)
[2021-10-13 16:14] LABS: CHLORIDE 107 mmol/L (98-107); SODIUM 137 mmol/L (136-145)
[2021-10-13 16:17] LABS: ALBUMIN 2.7 g/dl (3.4-5.0); CO2 15 mmol/L (21-32)
[2021-10-13 16:19] LABS: SGPT/ALT 702 U/L (13-61)
[2021-10-13 16:20] LABS: CREATININE 3.8 mg/dL (0.55-1.3)
[2021-10-13 16:21] LABS: BILIRUBIN,TOTAL 0.9 mg/dL (0.2-1); TOT PROT 5.7 g/dl (6.4-8.2)
[2021-10-13 16:22] LABS: ALK PHOS 224 U/L (45-117)
[2021-10-13 16:36] LABS: ANION GAP 15 MMOL/L (8-16); BLOOD UREA NITROGEN 105.8 mg/dL (7-18); GLUCOSE,RANDOM 471 mg/dL (74-106); LACTIC ACID 3.7 mmol/L (0.4-2.0); SGOT/AST 1074 U/L (15-37)
[2021-10-13] MEDS ORDERED: INSULIN REGULAR HUMAN 100 UNITS/ML *VIAL IVPUSH ONE (16:43)
[2021-10-13] MEDS ORDERED: CALCIUM GLUCONATE 10% - 1,000 MG/10 ML VIAL IVPB ONE (16:43)
[2021-10-13] MEDS: SODIUM BICARBONATE 8.4% - 150 MEQ in DEXTROSE 5%-WATER - 1,000 ML IV SCH (17:00)
[2021-10-13 19:39] LABS: EPI CELLS 17 /uL (0-25.1); HYALINE CASTS 10 /uL (0-3.1); URINE APPEARANCE CLOUDY; URINE BACTERIA 3 /uL (0-1359); URINE BILIRUBIN NEGATIVE (NEGATIVE); URINE COLOR DK YELLOW; URINE GLUCOSE (UA) NEGATIVE (NEGATIVE); URINE KETONE TRACE (NEGATIVE); URINE LEUK ESTERASE 2+ (NEGATIVE); URINE NITRITE NEGATIVE (NEGATIVE); URINE PROTEIN 1+ (NEGATIVE); URINE WBC 246 /uL (0-25.8)
[2021-10-13 19:48] LABS: CHLORIDE 105 mmol/L (98-107); SODIUM 137 mmol/L (136-145)
[2021-10-13 19:51] LABS: ALBUMIN 2.7 g/dl (3.4-5.0); ANION GAP 15 MMOL/L (8-16); CO2 16 mmol/L (21-32)
[2021-10-13 19:56] LABS: BILIRUBIN,TOTAL 1.1 mg/dL (0.2-1); TOT PROT 5.6 g/dl (6.4-8.2)
[2021-10-13 19:57] LABS: ALK PHOS 215 U/L (45-117)
[2021-10-13 20:01] LABS: SGPT/ALT 788 U/L (13-61)
[2021-10-13 20:02] LABS: BLOOD UREA NITROGEN 109.2 mg/dL (7-18); GLUCOSE,RANDOM 473 mg/dL (74-106); SGOT/AST 1278 U/L (15-37)
[2021-10-13 20:11] LABS: URINE RBC 101 /uL (0-23.9)
[2021-10-13] MEDS ORDERED: INSULIN (LEVEMIR) 100 UNITS/ML UNITS SQ ONE (20:14)
[2021-10-13] MEDS ORDERED: SODIUM CHLORIDE 1,000 ML IV SCH (20:15)
[2021-10-13] MEDS: MELATONIN 5 MG TABLETS PO SCH (21:09)
[2021-10-13] MEDS: CHLORHEXIDINE GLUCONATE 4% CLEANSER FOR DECOLONIZATION TP SCH (21:10)
[2021-10-13] MEDS ORDERED: EPINEPHrine 1:1,000 4,000 MCG in DEXTROSE 5%-WATER - 996 ML IV SCH (22:30)
[2021-10-14] MEDS ORDERED: PIPERACILLIN/TAZOBACTAM 2.25 GM VIAL IVPB ONE ×2 (00:02→09:42)
[2021-10-14] MEDS ORDERED: DEXTROSE 5%-WATER - 50 ML IVPB ONE ×2 (00:02→09:42)
[2021-10-14] MEDS: PIPERACILLIN/TAZOB 2.25 GM 2.25 GM in DEXTROSE 5%-WATER - 50 ML IVPB SCH ×2 (03:00→09:56)
[2021-10-14] MEDS: VASOPRESSIN 40 UNITS/100 ML BAG IV SCH (05:59)
[2021-10-14] MEDS: HEPARIN NA (PORCINE) 5,000 UNITS/ML 1ML VIAL SQ SCH (05:59)
[2021-10-14 06:00] LABS: ARTERIAL BLD GAS O2 SATURATION 96.4 % (95-98); ARTERIAL BLOOD GAS BASE EXCESS -12.4 mmol/L (-2-2); ARTERIAL BLOOD GAS PO2 101.6 mmHg (80-100); ARTERIAL BLOOD GAS pH 7.205 (7.350-7.450)
[2021-10-14 06:04] LABS: VENT MODE V-A/C; VENT RATE 16
[2021-10-14 06:27] VITALS: TEMP 98.7
[2021-10-14] MEDS: SODIUM BICARBONATE 8.4% - 150 MEQ in DEXTROSE 5%-WATER - 1,000 ML IV SCH (06:38)
[2021-10-14 07:14] LABS: BASO % 0.4 % (0-2.0); HEMATOCRIT 36.2 % (35.4-49); HEMOGLOBIN 11.2 GM/dL (11.7-16.9); MCH 30.6 pg (25.7-33.7); MEAN CELL VOLUME 98.5 fl (80-96); MEAN PLT VOLUME 9.7 fl (7.5-11.1); MONO % 5.6 % (3.8-10.2); PLATELET COUNT 265 10^3/uL (134-434); RBC 3.67 M/mm3 (4.00-5.60); RDW 15.7 % (11.9-15.9)
[2021-10-14 07:26] LABS: CHLORIDE 101 mmol/L (98-107); SODIUM 133 mmol/L (136-145)
[2021-10-14 07:30] LABS: CALCIUM 7.4 mg/dL (8.5-10.1)
[2021-10-14 07:31] LABS: ALBUMIN 2.4 g/dl (3.4-5.0); CO2 16 mmol/L (21-32)
[2021-10-14 07:34] LABS: CREATININE 4.6 mg/dL (0.55-1.3); PHOSPHOROUS 7.3 mg/dL (2.5-4.9)
[2021-10-14 07:35] LABS: BILIRUBIN,TOTAL 1.1 mg/dL (0.2-1)
[2021-10-14 07:36] LABS: TOT PROT 5.3 g/dl (6.4-8.2)
[2021-10-14 07:37] LABS: ALK PHOS 216 U/L (45-117)
[2021-10-14 08:14] LABS: ANION GAP 15 MMOL/L (8-16); GLUCOSE,RANDOM 556 mg/dL (74-106); SGOT/AST 3766 U/L (15-37); SGPT/ALT 1975 U/L (13-61)
[2021-10-14] MEDS ORDERED: CALCIUM GLUCONATE IN NACL 1 GM/50 ML BAG IVPB ONE (08:38)
[2021-10-14] MEDS ORDERED: INSULIN REGULAR HUMAN 100 UNITS/ML *VIAL IVPUSH ONE (08:38)
[2021-10-14] MEDS ORDERED: ALBUTEROL SO4 0.083% IH SOL 2.5 MG/3 ML VIAL.NEB. NEB ONE (08:39)
[2021-10-14] MEDS ORDERED: FUROSEMIDE 40 MG/4 ML INJECTABLE VIAL IVPUSH ONE (08:39)
[2021-10-14] MEDS ORDERED: EPINEPHrine 1:1,000 1,000 MCG in SODIUM CHLORIDE 249 ML IVPB SCH (08:45)
[2021-10-14] MEDS ORDERED: NOREPINEPHRINE BITARTRATE 16,000 MCG in SODIUM CHLORIDE 484 ML IV SCH (08:45)
[2021-10-14] MEDS: ASPIRIN 81 MG CHEWABLE TABLETS PO SCH (09:56)
[2021-10-14] MEDS: FLUDROCORTISONE ACETATE 0.1 MG TABLET (FP) PO SCH (09:56)
[2021-10-14] MEDS: HYDROCORTISONE SOD SUCCINATE 100 MG/2 ML VIAL IVPUSH SCH (09:56)
[2021-10-14] MEDS: ALLOPURINOL 100 MG TABLET (FP) PO SCH (09:56)
[2021-10-14] MEDS ORDERED: SODIUM ZIRCONIUM CYCLOSILICATE (LOKELMA) 5 GM PACKET PO SCH (10:00)
[2021-10-14] MEDS ORDERED: morphine SULFATE 4 MG/ML VIAL IVPUSH ONE (12:39)
[2021-10-14] MEDS ORDERED: LORazepam 2 MG/ML SDV VIAL IVPUSH PRN (12:40)
[2021-10-14] MEDS ORDERED: MORPHINE SULFATE/0.9% NACL/PF 100 MG/100 ML BAG IVPB SCH (12:45)
[2021-10-14] MEDS ORDERED: SODIUM ZIRCONIUM CYCLOSILICATE (LOKELMA) 5 GM PACKET PO ONE (16:43)
[2021-10-14 16:44] VITALS: BP 62/34; PULSE 102
== END 2021-10-14 13:13 | disposition expired | DRG 870 ==
LOC: JER 12:33 → JERBED 16:40 → JICU 19:08
PROVIDERS: ADMIT Internal Medicine Pulmonary Disease; ATTEND Internal Medicine Pulmonary Disease
PROC: 5A1955Z Respiratory Ventilation, Greater than 96 Consecutive Hours (ICD-10-PCS; principal; 2021-10-09)
PROC: 0BH17EZ Insertion of Endotracheal Airway into Trachea, Via Natural or Artificial Opening (ICD-10-PCS; 2021-10-09)
PROC: 03HY32Z Insertion of Monitoring Device into Upper Artery, Percutaneous Approach (ICD-10-PCS; 2021-10-12)
PROC: 4A133B1 Monitoring of Arterial Pressure, Peripheral, Percutaneous Approach (ICD-10-PCS; 2021-10-12)
PROC: 4A133J1 Monitoring of Arterial Pulse, Peripheral, Percutaneous Approach (ICD-10-PCS; 2021-10-12)
DX: A41.9 Sepsis, unspecified organism (principal); I50.33 Acute on chronic diastolic (congestive) heart failure; J69.0 Pneumonitis due to inhalation of food and vomit; J96.22 Acute and chronic respiratory failure with hypercapnia; R65.21 Severe sepsis with septic shock; K72.00 Acute and subacute hepatic failure without coma; I13.0 Hypertensive heart and chronic kidney disease with heart failure and stage 1 through stage 4 chronic kidney disease, or unspecified chronic kidney disease; Z68.42 Body mass index [BMI] 45.0-49.9, adult; N17.9 Acute kidney failure, unspecified; E87.2 Acidosis; I31.3 Pericardial effusion (noninflammatory); M10.9 Gout, unspecified; N18.9 Chronic kidney disease, unspecified; E66.01 Morbid (severe) obesity due to excess calories; D64.9 Anemia, unspecified; E78.00 Pure hypercholesterolemia, unspecified; F03.90 Unspecified dementia, unspecified severity, without behavioral disturbance, psychotic disturbance, mood disturbance, and anxiety; R00.1 Bradycardia, unspecified; R33.9 Retention of urine, unspecified; G47.33 Obstructive sleep apnea (adult) (pediatric); I89.0 Lymphedema, not elsewhere classified; E87.5 Hyperkalemia; R73.9 Hyperglycemia, unspecified
CPT/HCPCS: 31500; 36415; 36600; 71045-TC-FY; 76775-TC; 80053; 81003; 82728; 82803; 82962; 83036; 83540; 83550; 83605; 83735; 83880; 84100; 84484; 85025; 85027; 87040; 87070; 87086; 87186; 87205; 87899; 93005; 93010; 93306-TC; 94002; 94640; 99291; C9803-CS; G0480; J1644; J3490; P9047; U0003; U0005